=== PATIENT | female | born 2000 | race Caucasian/White ===

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

== ENCOUNTER 2021-02-16 18:46 | Emergency (ER) | payer OTHER ==
[2021-02-16] MEDS ORDERED: diphenhydrAMINE 50 MG/ML 1 ML VIAL IVP STA (20:03)
[2021-02-16] MEDS ORDERED: SODIUM CHLORIDE 0.9% 1,000 ML IV STA (20:03)
[2021-02-16] MEDS ORDERED: ONDANSETRON 4 MG/2 ML VIAL IVP STA (20:03)
[2021-02-16 20:29] LABS: Basophils % (A) 0 %; Eosinophils # (A) 0.2 k/uL (0-0.7); Eosinophils % (A) 1 %; HGB 15.5 gm/dL (11.4-16.0); Lymphocytes # (A) 0.9 k/uL (1.0-4.8); Lymphocytes % (A) 4 %; MCH 30.6 pg (25.0-35.0); MCHC 36.1 g/dL (31.0-37.0); MCV 84.7 fL (80.0-100.0); Mean Platelet Volume 8.1; Monocytes # (A) 0.8 k/uL (0-1.0); Monocytes % (A) 4 %; Neutrophils # (A) 19.9 k/uL (1.3-7.7); Neutrophils % (A) 91 %; Platelet Count 231 k/uL (150-450); RBC 5.07 m/uL (3.80-5.40); RDW 12.5 % (11.5-15.5); WBC 21.8 k/uL (4.0-11.0)
[2021-02-16 20:35] LABS: Appearance,Urine Cloudy (Clear); Bilirubin,Urine Negative (Negative); Blood,Urine Large (Negative); Color,Urine Yellow; Glucose,Urine (UA) Negative (Negative); Ketones,Urine Trace (Negative); Leukocyte Esterase,Urine Small (Negative); Mucus,Urine Many /hpf; Nitrite,Urine Negative (Negative); PH, Urine 5.5 (5.0-8.0); Protein,Urine 1+ (Negative); RBC,Urine 45 /hpf (0-5); Specific Gravity,Urine 1.027 (1.001-1.035); Squamous Epithelial Cell,Urine 7 /hpf (0-4); Urobilinogen,Urine <2.0 mg/dL (<2.0); WBC,Urine 3 /hpf (0-5)
[2021-02-16 20:39] LABS: ALT 14 U/L (4-34); AST 21 U/L (14-36); African American GFR (CKD) >90 (>60 ml/min/1.73 sqM); Albumin 5.2 g/dL (3.5-5.0); Alkaline Phosphatase 75 U/L (38-126); Amylase 101 U/L (30-110); Anion Gap 15 mmol/L; Blood Urea Nitrogen 15 mg/dL (7-17); Calcium 10.4 mg/dL (8.4-10.2); Carbon Dioxide 19 mmol/L (22-30); Chloride 108 mmol/L (98-107); Glucose 130 mg/dL (74-99); Lipase 159 U/L (23-300); Non-African American GFR(CKD) >90 (>60 ml/min/1.73 sqM); Potassium 3.7 mmol/L (3.5-5.1); Sodium 142 mmol/L (137-145); Total Bilirubin 0.8 mg/dL (0.2-1.3); Total Protein 8.1 g/dL (6.3-8.2)
[2021-02-16] MEDS: HYDROmorphone 1 MG/ML 1 ML SYRINGE IVP STA ×2 (20:41→20:47)
[2021-02-16 20:44] VITALS: RESP 16
[2021-02-16] MEDS ORDERED: KETOROLAC 15 MG/ML 1 ML VIAL IVP STA (20:47)
--- NOTE | 2021-02-16 21:14 | ED ---
Abdominal Pain HPI - General Chief Complaint: Abdominal Pain Stated Complaint: Abd pain/nausea Time Seen by Provider: 02/16/21 19:58 Source: patient, RN notes reviewed Mode of arrival: wheelchair Limitations: no limitations - History of Present Illness Initial Comments: 20-year-old female presented emergency, complaining of nausea vomiting diarrhea started approximately this morning. She notes that she has not been able to keep a whole lot of fluids down. She noted that she has generalized abdominal discomfort and pain. She'll the pain is approximately a 9.5 out of 10 is not aggravated by any movements or anything else. She denied any alleviating factors either. She also she can emergency room to get evaluated. She did appear to be in mild distress and moderate pain while sitting up in bed during exam and interview. She did state that there is a chance she might be but she was not sure. She denied any other complaints. She denied any chest pain shortness breath headache obstipation fever fatigue chills hematochezia melena hematemesis. - Related Data Home Medications Medication Instructions Recorded Confirmed Ibuprofen [Motrin Ib] 800 mg PO Q8H PRN 02/16/21 02/16/21 Allergies Allergy/AdvReac Type Severity Reaction Status Date / Time amoxicillin Allergy Rash/Hives Verified 02/16/21 22:04 morphine Allergy Rapid Verified 02/16/21 22:04 Heart Rate Penicillins Allergy Rash/Hives Verified 02/16/21 22:04 Review of Systems ROS Statement: Those systems with pertinent positive or pertinent negative responses have been documented in the HPI. ROS Other: All systems not noted in ROS Statement are negative. Past Medical History Additional Past Medical History / Comment(s): IBS, orthostatic hypertension, borderline diabetic. History of Any Multi-Drug Resistant Organisms: None Reported Past Surgical History: Adenoidectomy, Tonsillectomy Past Psychological History: PTSD Smoking Status: Vaper Past Alcohol Use History: None Reported Past Drug Use History: Marijuana General Exam Limitations: no limitations General appearance: alert, in no apparent distress Head exam: Present: atraumatic, normocephalic, normal inspection Eye exam: Present: normal appearance, PERRL, EOMI. Absent: scleral icterus, conjunctival injection, periorbital swelling Neck exam: Present: normal inspection Respiratory exam: Present: normal lung sounds bilaterally. Absent: respiratory distress, wheezes, rales, rhonchi, stridor Cardiovascular Exam: Present: regular rate, normal rhythm, normal heart sounds. Absent: systolic murmur, diastolic murmur, rubs, gallop, clicks GI/Abdominal exam: Present: soft, tenderness (In all quadrants), normal bowel sounds. Absent: distended, guarding, rebound, rigid, mass Extremities exam: Present: normal inspection, full ROM, normal capillary refill. Absent: tenderness, pedal edema, joint swelling, calf tenderness Neurological exam: Present: alert, oriented X3 Psychiatric exam: Present: normal affect, normal mood Skin exam: Present: warm, dry, intact, normal color. Absent: rash Course Vital Signs 02/16/21 02/16/21 19:02 20:41 Temperature 97.4 F L Pulse Rate 111 H 82 Respiratory 24 16 Rate Blood Pressure 111/54 98/55 O2 Sat by Pulse 99 99 Oximetry Medical Decision Making - Medical Decision Making 20-year-old female complaining of abdominal pain nausea vomiting and diarrhea times one. Labs, KUB, 50 mg of Benadryl, 15 mg Toradol, 4 mg of Zofran, 1 L normal saline ordered. Labs: White blood cells 21.8, glucose 1:30, calcium 10.4 urine negative for urinary tract infection. Patient appears to be dehydrated. Patient states that she feels much better upon reevaluation wants to go home. Case discussed with Dr. Woodruff, patient discharge home with repeat labs in a couple days. - Lab Data Result diagrams: 02/16/21 20:17 02/16/21 20:17 Lab Results 02/16/21 02/16/21 02/16/21 Range/Units 20:17 20:17 20:17 WBC 21.8 H (4.0-11.0) k/uL RBC 5.07 (3.80-5.40) m/uL Hgb 15.5 (11.4-16.0) gm/dL Hct 43.0 (34.0-46.0) % MCV 84.7 (80.0-100.0) fL MCH 30.6 (25.0-35.0) pg MCHC 36.1 (31.0-37.0) g/dL RDW 12.5 (11.5-15.5) % Plt Count 231 (150-450) k/uL MPV 8.1 Neutrophils % 91 % Lymphocytes % 4 % Monocytes % 4 % Eosinophils % 1 % Basophils % 0 % Neutrophils # 19.9 H (1.3-7.7) k/uL Lymphocytes # 0.9 L (1.0-4.8) k/uL Monocytes # 0.8 (0-1.0) k/uL Eosinophils # 0.2 (0-0.7) k/uL Basophils # 0.0 (0-0.2) k/uL Sodium (137-145) mmol/L Potassium (3.5-5.1) mmol/L Chloride (98-107) mmol/L Carbon Dioxide (22-30) mmol/L Anion Gap mmol/L BUN (7-17) mg/dL Creatinine (0.52-1.04) mg/dL Est GFR (CKD-EPI)AfAm (>60 ml/min/1.73 sqM) Est GFR (CKD-EPI)NonAf (>60 ml/min/1.73 sqM) Glucose (74-99) mg/dL Calcium (8.4-10.2) mg/dL Total Bilirubin (0.2-1.3) mg/dL AST (14-36) U/L ALT (4-34) U/L Alkaline Phosphatase (38-126) U/L Total Protein (6.3-8.2) g/dL Albumin (3.5-5.0) g/dL Amylase (30-110) U/L Lipase (23-300) U/L Urine Color Yellow Urine Appearance Cloudy H (Clear) Urine pH 5.5 (5.0-8.0) Ur Specific [place] 1.027 (1.001-1.035) Urine Protein 1+ H (Negative) Urine Glucose (UA) Negative (Negative) Urine Ketones Trace H (Negative) Urine Blood Large H (Negative) Urine Nitrite Negative (Negative) Urine Bilirubin Negative (Negative) Urine Urobilinogen <2.0 (<2.0) mg/dL Ur Leukocyte Esterase Small H (Negative) Urine RBC 45 H (0-5) /hpf Urine WBC 3 (0-5) /hpf Ur Squamous Epith Cells 7 H (0-4) /hpf Urine Mucus Many H (None) /hpf Urine HCG, Qual Not Detected (Not Detectd) 02/16/21 Range/Units 20:17 WBC (4.0-11.0) k/uL RBC (3.80-5.40) m/uL Hgb (11.4-16.0) gm/dL Hct (34.0-46.0) % MCV (80.0-100.0) fL MCH (25.0-35.0) pg MCHC (31.0-37.0) g/dL RDW (11.5-15.5) % Plt Count (150-450) k/uL MPV Neutrophils % % Lymphocytes % % Monocytes % % Eosinophils % % Basophils % % Neutrophils # (1.3-7.7) k/uL Lymphocytes # (1.0-4.8) k/uL Monocytes # (0-1.0) k/uL Eosinophils # (0-0.7) k/uL Basophils # (0-0.2) k/uL Sodium 142 (137-145) mmol/L Potassium 3.7 (3.5-5.1) mmol/L Chloride 108 H (98-107) mmol/L Carbon Dioxide 19 L (22-30) mmol/L Anion Gap 15 mmol/L BUN 15 (7-17) mg/dL Creatinine 0.62 (0.52-1.04) mg/dL Est GFR (CKD-EPI)AfAm >90 (>60 ml/min/1.73 sqM) Est GFR (CKD-EPI)NonAf >90 (>60 ml/min/1.73 sqM) Glucose 130 H (74-99) mg/dL Calcium 10.4 H (8.4-10.2) mg/dL Total Bilirubin 0.8 (0.2-1.3) mg/dL AST 21 (14-36) U/L ALT 14 (4-34) U/L Alkaline Phosphatase 75 (38-126) U/L Total Protein 8.1 (6.3-8.2) g/dL Albumin 5.2 H (3.5-5.0) g/dL Amylase 101 (30-110) U/L Lipase 159 (23-300) U/L Urine Color Urine Appearance (Clear) Urine pH (5.0-8.0) Ur Specific [place] (1.001-1.035) Urine Protein (Negative) Urine Glucose (UA) (Negative) Urine Ketones (Negative) Urine Blood (Negative) Urine Nitrite (Negative) Urine Bilirubin (Negative) Urine Urobilinogen (<2.0) mg/dL Ur Leukocyte Esterase (Negative) Urine RBC (0-5) /hpf Urine WBC (0-5) /hpf Ur Squamous Epith Cells (0-4) /hpf Urine Mucus (None) /hpf Urine HCG, Qual (Not Detectd) - Radiology Data Radiology results: report reviewed, image reviewed CT of the abdomen and pelvis: Tiny amount of low density free fluid in the pelvis could be physiological. Normal appendix. Otherwise negative exam. Disposition Clinical Impression: Abdominal pain, Nausea & vomiting, Diarrhea, Leukocytosis Disposition: HOME SELF-CARE Condition: Stable Instructions (If sedation given, give patient instructions): Abdominal Pain (ED) Additional Instructions: Please return to the Emergency Department if symptoms worsen or any other concerns. Follow-up with primary care in a couple days to recheck blood levels. Take Zofran as prescribed. Increase oral fluids. Is patient prescribed a controlled substance at d/c from ED?: No Referrals: Curt Monzon MD [Primary Care Provider] - 1-2 days Time of Disposition: 22:54
--- NOTE | 2021-02-16 21:52 | XR ---
EXAMINATION TYPE: XR KUB 2 views DATE OF EXAM: 02/16/2021 8:55 PM CLINICAL HISTORY: Pain TECHNIQUE: 2 upright views COMPARISON: None. FINDINGS: The visualized lung bases and pleural spaces are negative. No evidence of pneumoperitoneum or pneumatosis. Scattered gas is seen in non-distended small bowel lo ops. Gas and fecal material is seen in non-distended colon. There is no definite visceromegaly. No abnormal calcification. No acute skeletal findings. IMPRESSION: No acute radiographic process.
--- NOTE | 2021-02-16 22:38 | CT ---
EXAMINATION TYPE: CT abdomen pelvis w con DATE OF EXAM: 02/16/2021 COMPARISON: None HISTORY: vomiting and abd pain CT DLP: 720.9 mGycm Automated exposure control for dose reduction was used. CONTRAST: Performed with IV Contrast, patient injected with 100 mL of Isovue 300. Lung bases are clear. There is no pleural effusion. Heart size is normal. There is no pericardial eff usion. Liver spleen stomach pancreas gallbladder appear intact. Bile ducts are not dilated. There is no adrenal mass. Kidneys show satisfactory contrast opacification. There is no hydronephrosi s. The ureters are not dilated. There is no retroperitoneal adenopathy. Urinary bladder is almost emp ty. Uterus is anteverted. There is tiny amount of free fluid in the pelvis on the right side. There is no mesenteric edema. There is no ascites or free air. There is no bowel obstruction. Appendi x appears normal. The lumbar vertebra have normal alignment. Posterior elements are intact. There is no compression fra cture. Bony pelvis is intact. The hip joints are intact. There is no hip dysplasia. The delayed image s show normal renal excretion. IMPRESSION: Tiny amount of low-density free fluid in the pelvis could be physiologic. Normal appendix. Otherwise negative exam.
[2021-02-16] MEDS ORDERED: ONDANSETRON 4 MG ODT STARTER PACK 2 TAB BTL PO STA (22:53)
[2021-02-16 23:09] VITALS: BP 108/55; PULSE 85; TEMP 98
== END 2021-02-16 23:02 | disposition home or self-care (01) ==
LOC: EC 18:46
DX: R10.9 Unspecified abdominal pain (principal); R11.2 Nausea with vomiting, unspecified; R19.7 Diarrhea, unspecified; D72.829 Elevated white blood cell count, unspecified; F17.290 Nicotine dependence, other tobacco product, uncomplicated; I10 Essential (primary) hypertension; Z88.0 Allergy status to penicillin; Z88.5 Allergy status to narcotic agent
CPT/HCPCS: 36415; 80053; 82150; 83690; 85025; 81001; 81025; 74018; 74177; 99284; 96374; 96375; 96361; J1200; J2405; J1885; S0119; Q9967

== ENCOUNTER 2021-06-16 12:45 | Emergency (ER) | payer OTHER ==
[2021-06-16 12:59] VITALS: RESP 18; TEMP 98.5
[2021-06-16] MEDS ORDERED: HYDROmorphone 0.5 MG/0.5 ML SYRINGE IVP STA (13:57)
[2021-06-16] MEDS ORDERED: SODIUM CHLORIDE 0.9% 1,000 ML IV STA (13:57)
--- NOTE | 2021-06-16 14:17 | ED ---
General Adult HPI - General Chief complaint: Abdominal Pain Stated complaint: poss ovarian cyst Time Seen by Provider: 06/16/21 13:18 Source: patient, RN notes reviewed Mode of arrival: ambulatory - History of Present Illness Initial comments: 21-year-old female presents to the emergency room for a chief of right lower quadrant abdominal pain. Patient has had right lower quadrant abdominal pain for 3 months now. Patient states she was told she has an ovarian cyst. She states she hasn't seen her [facility] for this and has an upcoming appointment for an ultrasound. However the pain worsened last night and she called her [facility] who just recommended she come to the emergency room for evaluation. Denies fevers or chills. Denies nausea vomiting diarrhea.Patient has no other complaints at this time including shortness of breath, chest pain, nausea or vomiting, headache, or visual changes. - Related Data Home Medications Medication Instructions Recorded Confirmed No Known Home Medications 06/16/21 06/16/21 Allergies Allergy/AdvReac Type Severity Reaction Status Date / Time amoxicillin Allergy Rash/Hives Verified 06/16/21 13:52 morphine Allergy Rapid Verified 06/16/21 13:52 Heart Rate Penicillins Allergy Rash/Hives Verified 06/16/21 13:52 Review of Systems ROS Statement: Those systems with pertinent positive or pertinent negative responses have been documented in the HPI. ROS Other: All systems not noted in ROS Statement are negative. Past Medical History Additional Past Medical History / Comment(s): IBS, orthostatic hypertension, borderline diabetic. History of Any Multi-Drug Resistant Organisms: None Reported Past Surgical History: Adenoidectomy, Tonsillectomy Past Psychological History: PTSD Smoking Status: Vaper Past Alcohol Use History: None Reported Past Drug Use History: Marijuana General Exam General appearance: alert, in no apparent distress Head exam: Present: atraumatic Eye exam: Present: normal appearance, PERRL, EOMI. Absent: scleral icterus, conjunctival injection ENT exam: Present: normal exam, mucous membranes moist Neck exam: Present: normal inspection, full ROM. Absent: tenderness Respiratory exam: Present: normal lung sounds bilaterally. Absent: respiratory distress, wheezes Cardiovascular Exam: Present: regular rate, normal rhythm, normal heart sounds GI/Abdominal exam: Present: soft, tenderness (Mild right lower quadrant abdominal tenderness.), normal bowel sounds. Absent: distended Neurological exam: Present: alert Course Vital Signs 06/16/21 06/16/21 12:57 15:30 Temperature 98.5 F Pulse Rate 99 67 Respiratory 18 18 Rate Blood Pressure 99/60 111/50 O2 Sat by Pulse 97 99 Oximetry Medical Decision Making - Medical Decision Making Vitals are stable. CBC CMP unremarkable. Ultrasound shows no evidence of tor gemini. There is a probable 2.7 cm hemorrhagic cyst of the left ovary. Recommend ultrasound following up in 6-8 weeks. Patient states this pain is the same as several months ago when she had a CAT scan that was negative. Patient reevaluated, pain has improved significantly at this time. We will not CAT scan patient again as this is the same pain from previous CAT scan and patient's pain is resolved at this time. She will be discharged home to follow up with [facility]. She'll return here for any worsening symptoms. - Lab Data Result diagrams: 06/16/21 14:09 06/16/21 14:09 Lab Results 06/16/21 06/16/21 06/16/21 Range/Units 14:09 14:09 14:09 WBC 9.4 (3.8-10.6) k/uL RBC 4.79 (3.80-5.40) m/uL Hgb 14.5 (11.4-16.0) gm/dL Hct 42.9 (34.0-46.0) % MCV 89.6 (80.0-100.0) fL MCH 30.2 (25.0-35.0) pg MCHC 33.7 (31.0-37.0) g/dL RDW 12.3 (11.5-15.5) % Plt Count 215 (150-450) k/uL MPV 8.5 Neutrophils % 64 % Lymphocytes % 29 % Monocytes % 5 % Eosinophils % 1 % Basophils % 0 % Neutrophils # 6.0 (1.3-7.7) k/uL Lymphocytes # 2.7 (1.0-4.8) k/uL Monocytes # 0.4 (0-1.0) k/uL Eosinophils # 0.1 (0-0.7) k/uL Basophils # 0.0 (0-0.2) k/uL Sodium 141 (137-145) mmol/L Potassium 4.1 (3.5-5.1) mmol/L Chloride 103 (98-107) mmol/L Carbon Dioxide 29 (22-30) mmol/L Anion Gap 9 mmol/L BUN 10 (7-17) mg/dL Creatinine 0.62 (0.52-1.04) mg/dL Est GFR (CKD-EPI)AfAm >90 (>60 ml/min/1.73 sqM) Est GFR (CKD-EPI)NonAf >90 (>60 ml/min/1.73 sqM) Glucose 69 L (74-99) mg/dL Plasma Lactic Acid Jose A (0.7-2.0) mmol/L Calcium 10.1 (8.4-10.2) mg/dL Total Bilirubin 0.3 (0.2-1.3) mg/dL AST 19 (14-36) U/L ALT 10 (4-34) U/L Alkaline Phosphatase 56 (38-126) U/L Total Protein 7.6 (6.3-8.2) g/dL Albumin 4.5 (3.5-5.0) g/dL Amylase 66 (30-110) U/L Lipase 70 (23-300) U/L Urine Color Light Yellow Urine Appearance Cloudy H (Clear) Urine pH 7.5 (5.0-8.0) Ur Specific [place] 1.013 (1.001-1.035) Urine Protein Negative (Negative) Urine Glucose (UA) Negative (Negative) Urine Ketones Negative (Negative) Urine Blood Trace H (Negative) Urine Nitrite Negative (Negative) Urine Bilirubin Negative (Negative) Urine Urobilinogen <2.0 (<2.0) mg/dL Ur Leukocyte Esterase Negative (Negative) Urine RBC 17 H (0-5) /hpf Urine WBC 1 (0-5) /hpf Ur Squamous Epith Cells 4 (0-4) /hpf Urine Mucus Rare H (None) /hpf Urine Yeast (Budding) Few H (None) /hpf Urine HCG, Qual (Not Detectd) 06/16/21 06/16/21 Range/Units 14:09 14:09 WBC (3.8-10.6) k/uL RBC (3.80-5.40) m/uL Hgb (11.4-16.0) gm/dL Hct (34.0-46.0) % MCV (80.0-100.0) fL MCH (25.0-35.0) pg MCHC (31.0-37.0) g/dL RDW (11.5-15.5) % Plt Count (150-450) k/uL MPV Neutrophils % % Lymphocytes % % Monocytes % % Eosinophils % % Basophils % % Neutrophils # (1.3-7.7) k/uL Lymphocytes # (1.0-4.8) k/uL Monocytes # (0-1.0) k/uL Eosinophils # (0-0.7) k/uL Basophils # (0-0.2) k/uL Sodium (137-145) mmol/L Potassium (3.5-5.1) mmol/L Chloride (98-107) mmol/L Carbon Dioxide (22-30) mmol/L Anion Gap mmol/L BUN (7-17) mg/dL Creatinine (0.52-1.04) mg/dL Est GFR (CKD-EPI)AfAm (>60 ml/min/1.73 sqM) Est GFR (CKD-EPI)NonAf (>60 ml/min/1.73 sqM) Glucose (74-99) mg/dL Plasma Lactic Acid Jose A 1.0 (0.7-2.0) mmol/L Calcium (8.4-10.2) mg/dL Total Bilirubin (0.2-1.3) mg/dL AST (14-36) U/L ALT (4-34) U/L Alkaline Phosphatase (38-126) U/L Total Protein (6.3-8.2) g/dL Albumin (3.5-5.0) g/dL Amylase (30-110) U/L Lipase (23-300) U/L Urine Color Urine Appearance (Clear) Urine pH (5.0-8.0) Ur Specific [place] (1.001-1.035) Urine Protein (Negative) Urine Glucose (UA) (Negative) Urine Ketones (Negative) Urine Blood (Negative) Urine Nitrite (Negative) Urine Bilirubin (Negative) Urine Urobilinogen (<2.0) mg/dL Ur Leukocyte Esterase (Negative) Urine RBC (0-5) /hpf Urine WBC (0-5) /hpf Ur Squamous Epith Cells (0-4) /hpf Urine Mucus (None) /hpf Urine Yeast (Budding) (None) /hpf Urine HCG, Qual Not Detected (Not Detectd) Disposition Clinical Impression: Hemorrhagic ovarian cyst Disposition: HOME SELF-CARE Condition: Good Instructions (If sedation given, give patient instructions): Ruptured Ovarian Cyst (ED) Additional Instructions: Take Motrin and Tylenol for pain. Follow-up with your [facility]. Return for any worsening symptoms or for fevers. Is patient prescribed a controlled substance at d/c from ED?: No Referrals: Reyes Watson DO [Primary Care Provider] - 1-2 days Time of Disposition: 16:34
[2021-06-16 14:23] LABS: Basophils % (A) 0 %; Eosinophils # (A) 0.1 k/uL (0-0.7); Eosinophils % (A) 1 %; HCT 42.9 % (34.0-46.0); HGB 14.5 gm/dL (11.4-16.0); Lymphocytes # (A) 2.7 k/uL (1.0-4.8); Lymphocytes % (A) 29 %; MCH 30.2 pg (25.0-35.0); MCHC 33.7 g/dL (31.0-37.0); MCV 89.6 fL (80.0-100.0); Mean Platelet Volume 8.5; Monocytes # (A) 0.4 k/uL (0-1.0); Monocytes % (A) 5 %; Neutrophils % (A) 64 %; Platelet Count 215 k/uL (150-450); RBC 4.79 m/uL (3.80-5.40); RDW 12.3 % (11.5-15.5); WBC 9.4 k/uL (3.8-10.6)
[2021-06-16 14:32] LABS: Appearance,Urine Cloudy (Clear); Bilirubin,Urine Negative (Negative); Blood,Urine Trace (Negative); Budding Yeast,Urine Few /hpf; Color,Urine Light Yellow; Glucose,Urine (UA) Negative (Negative); Ketones,Urine Negative (Negative); Leukocyte Esterase,Urine Negative (Negative); Mucus,Urine Rare /hpf; Nitrite,Urine Negative (Negative); PH, Urine 7.5 (5.0-8.0); Protein,Urine Negative (Negative); RBC,Urine 17 /hpf (0-5); Specific Gravity,Urine 1.013 (1.001-1.035); Squamous Epithelial Cell,Urine 4 /hpf (0-4); Urobilinogen,Urine <2.0 mg/dL (<2.0); WBC,Urine 1 /hpf (0-5)
[2021-06-16 14:41] LABS: ALT 10 U/L (4-34); AST 19 U/L (14-36); African American GFR (CKD) >90 (>60 ml/min/1.73 sqM); Albumin 4.5 g/dL (3.5-5.0); Alkaline Phosphatase 56 U/L (38-126); Amylase 66 U/L (30-110); Anion Gap 9 mmol/L; Blood Urea Nitrogen 10 mg/dL (7-17); Calcium 10.1 mg/dL (8.4-10.2); Carbon Dioxide 29 mmol/L (22-30); Chloride 103 mmol/L (98-107); Glucose 69 mg/dL (74-99); Lipase 70 U/L (23-300); Non-African American GFR(CKD) >90 (>60 ml/min/1.73 sqM); Potassium 4.1 mmol/L (3.5-5.1); Sodium 141 mmol/L (137-145); Total Bilirubin 0.3 mg/dL (0.2-1.3); Total Protein 7.6 g/dL (6.3-8.2)
--- NOTE | 2021-06-16 15:45 | US ---
EXAMINATION TYPE: US transvaginal plus Dopplers DATE OF EXAM: 06/16/2021 COMPARISON: 02/16/2021 CT CLINICAL HISTORY: 21-year-old female RLQ pain. Pt states RLQ pain TECHNIQUE: Transvaginal (TV). Transvaginal sonographic images of the pelvis were acquired. Color D oppler and spectral waveform analysis of the ovarian arteries and veins. Date of LMP: 05/26/2021 FINDINGS: EXAM MEASUREMENTS: Uterus: 7.7 x 3.6 x 4.9 cm Endometrial Stripe: 0.9 cm Right Ovary: 3.2 x 1.7 x 3.0 cm Left Ovary: 3.8 x 2.8 x 3.9 cm 1. Uterus: Anteverted and otherwise wnl 2. Endometrium: wnl 3. Right Ovary: Follicular changes present. 4. Left Ovary: Probable hemorrhagic cyst= 2.7 x 2.0 x 2.2 cm. This is hypoechoic with internal retic ulations. Spectral, color and waveform doppler imaging shows good arterial and venous flow within the ovaries ; there is no evidence for ovarian torsion. 5. Bilateral Adnexa: wnl 6. Posterior cul-de-sac: wnl IMPRESSION: 1. No sonographic evidence for ovarian torsion. 2. Probable 2.7 cm hemorrhagic cyst of the left ovary. Recommend ultrasound follow-up in 6-8 weeks to ensure involution. 3. No pelvic free fluid.
[2021-06-16 15:59] VITALS: BP 111/50; PULSE 67
== END 2021-06-16 16:40 | disposition home or self-care (01) ==
LOC: EC 12:45
DX: N83.202 Unspecified ovarian cyst, left side (principal); I10 Essential (primary) hypertension; F17.290 Nicotine dependence, other tobacco product, uncomplicated; F12.90 Cannabis use, unspecified, uncomplicated; Z88.0 Allergy status to penicillin; Z88.5 Allergy status to narcotic agent; Z90.89 Acquired absence of other organs
CPT/HCPCS: 99284; 96374; 96361; 36415; 80053; 82150; 83605; 83690; 85025; 81001; 81025; 93975; 76830; J1170

== ENCOUNTER → 2021-07-18 | Outpatient (CLI) | payer OTHER ==
--- NOTE | 2021-07-18 14:37 | US ---
EXAMINATION TYPE: US pelvis complete transvag DATE OF EXAM: 07/18/2021 COMPARISON: 06/16/2021 CLINICAL HISTORY: R10.2 pelvis pain. Left ovarian cysts TECHNIQUE: Transvaginal (TV) and Transabdominal (TA) . Transabdominal sonographic images of the pel vis were acquired. Transvaginal sonographic images were medically necessary to better assess the fol lowing anatomy: Ovaries Date of LMP: ?? EXAM MEASUREMENTS: Uterus: 7.2x4.8x3.4 cm Endometrial Stripe: 1.1 cm Right Ovary: 3.5x2.7x2.7 cm Left Ovary: 2.8x2.5x2.4 cm 1. Uterus: Anteverted wnl 2. Endometrium: wnl 3. Right Ovary: 2.4x2.3x2.0 cm complex ? hemorraghic cyst 4. Left Ovary: paraovarian cyst 1.1x0.6x0.8cm small amount of fluid adjacent the ovary 5. Bilateral Adnexa: wnl 6. Posterior cul-de-sac: Fluid seen IMPRESSION: Ovarian cystic lesions may reflect hemorrhagic cyst. Consider follow-up study in 6 weeks for confirma tion.
== END | disposition home or self-care (01) ==
LOC: RADUSWWP 12:53
PROVIDERS: ATTEND Obstetrics & Gynecology
DX: N83.02 Follicular cyst of left ovary (principal)
CPT/HCPCS: 76830; 76856

== ENCOUNTER 2021-09-19 06:01 | Day surgery (SDC) | payer OTHER ==
[2021-09-13 10:36] VITALS: BMI 25.7
[~2021-09-19 06:01] MED LIST: DEXAMETHASONE SOD PHOSPHATE 4 MG/ML 1 ML VIAL IV ONE; LACTATED RINGERS 1,000 ML IV SCH; ONDANSETRON 4 MG/2 ML VIAL IVP ONE; Pre Op ABX Message 1 EACH MISC MISCELLANE ONE
[2021-09-19 06:27] VITALS: RESP 16
--- NOTE | 2021-09-19 07:11 | P.HPOB ---
History of Present Illness H&P Date: 09/19/21 Chief Complaint: Pelvic pain 21-year-old G0 presents for diagnostic laparoscopy, cauterization of endometriosis and aspiration of right ovarian cyst. Review of Systems All systems: negative Constitutional: Denies chills, Denies fever Eyes: denies blurred vision, denies pain Ears, nose, mouth and throat: Denies headache, Denies sore throat Cardiovascular: Denies chest pain, Denies shortness of breath Respiratory: Denies cough Gastrointestinal: Denies abdominal pain, Denies diarrhea, Denies nausea, Denies vomiting Genitourinary: Denies dysuria, Denies hematuria Musculoskeletal: Denies myalgias Integumentary: Denies pruritus, Denies rash Neurological: Denies numbness, Denies weakness Psychiatric: Denies anxiety, Denies depression Endocrine: Denies fatigue, Denies weight change Past Medical History Additional Past Medical History / Comment(s): IBS, orthostatic hypotension, hx borderline diabetic, resolved since weight loss. History of Any Multi-Drug Resistant Organisms: None Reported Past Surgical History: Adenoidectomy, Tonsillectomy Past Anesthesia/Blood Transfusion Reactions: No Reported Reaction Past Psychological History: Anxiety, Depression, PTSD Smoking Status: Current every day smoker Past Alcohol Use History: Occasional Additional Past Alcohol Use History / Comment(s): Has been smoking since 18 yrs old, 1/2 ppd. Past Drug Use History: Marijuana Additional Drug Use History / Comment(s): Marijuana use daily. Aware no use 24 hrs prior to procedure. - Past Family History Father Family Medical History: Deep Vein Thrombosis (DVT) Medications and Allergies Home Medications Medication Instructions Recorded Confirmed Type No Known Home Medications 06/16/21 09/19/21 History Allergies Allergy/AdvReac Type Severity Reaction Status Date / Time amoxicillin Allergy Rash/Hives Verified 09/19/21 06:34 morphine Allergy Rapid Verified 09/19/21 06:34 Heart Rate Penicillins Allergy Rash/Hives Verified 09/19/21 06:34 Exam Osteopathic Statement: *. No significant issues noted on an osteopathic structural exam other than those noted in the History and Physical/Consult. Vital Signs Temp Pulse Resp BP Pulse Ox 09/19/21 06:26 98.5 F 95 16 112/67 98 Intake and Output 09/18/21 09/19/21 09/19/21 22:59 06:59 14:59 Other: Weight 67.5 kg Heart: Regular rate and rhythm Lungs: Clear to auscultation bilaterally Abdomen: Soft, nontender Extremities: Negative Homans sign Assessment and Plan (1) Pelvic pain Current Visit: Yes Status: Acute Code(s): R10.2 - PELVIC AND PERINEAL PAIN SNOMED Code(s): 67312719 (2) Right ovarian cyst Current Visit: Yes Status: Acute Code(s): N83.201 - UNSPECIFIED OVARIAN CYST, RIGHT SIDE SNOMED Code(s): 19016902 Plan: 1. Diagnostic laparoscopy with cauterization of endometriosis and aspiration of ovarian cyst
[2021-09-19] MEDS ORDERED: PROPOFOL 10 MG/ML 20 ML VIAL IV ONE (07:22)
[2021-09-19] MEDS ORDERED: ROCURONIUM 10 MG/ML (5 ML VIAL) IV ONE (07:22)
[2021-09-19] MEDS ORDERED: LIDOCAINE 1% INJ 10MG/ML (20 ML MDV) ONE (07:22)
[2021-09-19] MEDS ORDERED: MIDAZOLAM 2 MG/2 ML VIAL ONE (07:22)
[2021-09-19] MEDS ORDERED: GLYCOPYRROLATE 0.2 MG/ML 2 ML VIAL ONE (07:22)
[2021-09-19] MEDS ORDERED: fentaNYL (PF) 50 MCG/ML 2 ML AMP ONE (07:22)
[2021-09-19] MEDS ORDERED: HYDROmorphone (PF) 1 MG/ML ONE (07:22)
[2021-09-19] MEDS ORDERED: NEOSTIGMINE 1 MG/ML 10 ML VIAL ONE (07:22)
[2021-09-19] MEDS ORDERED: SUCCINYLCHOLINE CHLORIDE 100 MG/5 ML SYR IV ONE (07:22)
[2021-09-19] MEDS ORDERED: KETOROLAC 15 MG/ML 1 ML VIAL ONE (07:22)
[2021-09-19] MEDS ORDERED: BUPIVACAINE (PF) 0.25% 30 ML VIAL SQ ONE (08:03)
--- NOTE | 2021-09-19 08:20 | P.OP ---
Date of Procedure: 09/19/21 Preoperative Diagnosis: 1. pelvic pain 2. ovarian cyst Postoperative Diagnosis: 1. pelvic pain 2. ovarian cyst Procedure(s) Performed: diagnostic laparoscopy, aspiration of left ovarian cyst and cauterization of endometriosis. Anesthesia: MATTHEWA Surgeon: Rose Marie Moore Estimated Blood Loss (ml): 3 IV fluids (ml): 200 Urine output (ml): 15 Pathology: none sent Condition: stable Disposition: floor Operative Findings: left hemorrhagic cyst(possible corpus luteum), endomtriosis on the left ovarian fossa, adhesions of the left sigmoid colon to the left pelvic sidewall Description of Procedure: Patient was taken to the operating room where general anesthesia was obtained without difficulty. She was prepped and draped in normal sterile fashion in the dorsal lithotomy position, legs placed in the Alhaji stirrups. Bladder drained of all urine. Warner speculum placed in the vagina and the anterior lip the cervix was grasped with single-tooth tenaculum. The uterus is sounded to 8 cm and the kroner manipulator was placed. Attention was then turned to the abdomen and gloves were changed. A 10 mm infraumbilical incision was made the scalpel and 10 mm optical trocar was placed under direct visualization. A 5 mm suprapubic Incision was made and a 5 mm optical trocar was placed under direct visualization. Survey of the pelvis revealed normal uterus tubes and right ovary, small hemorrhagic cyst on the left ovary possible corpus luteum. I checked above the bladder behind the uterus and both ovarian fossa for endometriosis. I did see endometriosis in the left ovarian fossa and I burned this area with cautery set to 25. I did aspirate the left ovarian cyst as well, minimal blood came out. Suction industrial sales manager was used to evacuate fluid collection in the posterior cul-de-sac. Of note there is some adhesions of the left sigmoid colon to the left pelvic sidewall. All instruments were then removed from the abdomen and pelvis. The 10 mm infraumbilical incision was closed with 0 Vicryl and the fascial layer and then 4-0 Vicryl in a subcuticular fashion. The 5 mm incision was closed with 4-0 Vicryl in a subcuticular fashion. Patient tolerated procedure well, sponge and instrument counts correct 2 and she was taken to recovery room in stable condition.
[2021-09-19 08:22] VITALS: TEMP 97.5
[2021-09-19] MEDS: HYDROmorphone 0.5 MG/0.5 ML SYRINGE IVP PRN ×2 (08:25→08:33)
[2021-09-19 09:38] VITALS: BP 106/66; PULSE 63
== END 2021-09-19 10:44 | disposition home or self-care (01) ==
LOC: OR 06:01
PROVIDERS: ATTEND Obstetrics & Gynecology
DX: R10.2 Pelvic and perineal pain (principal); N83.202 Unspecified ovarian cyst, left side
CPT/HCPCS: 49322; 81025; J2250; J1100; J2710; J2405; J2001; J3010; J1170 ×2; J1885; J0330; J2704; J1790

== ENCOUNTER 2021-09-22 17:47 | Inpatient (IN) | payer OTHER ==
[2021-09-22] MEDS ORDERED: HYDROmorphone 0.5 MG/0.5 ML SYRINGE IVP STA ×2 (18:12→19:09)
[2021-09-22] MEDS ORDERED: SODIUM CHLORIDE 0.9% 500 ML 500 ML IV STA ×2 (18:12→19:26)
[2021-09-22] MEDS ORDERED: ONDANSETRON 4 MG/2 ML VIAL IVP STA (18:12)
--- NOTE | 2021-09-22 18:21 | ED ---
Abdominal Pain HPI <Maycol Villela - Last Filed: 09/22/21 23:14> - General Source: patient, EMS Mode of arrival: EMS Limitations: no limitations <Vilma Uriarte - Last Filed: 09/23/21 18:28> - General Chief Complaint: Abdominal Pain Stated Complaint: post op complications Time Seen by Provider: 09/22/21 17:59 - History of Present Illness Initial Comments: This 21-year-old female presents to the emergency department with abdominal pain and constipation. Patient states she had electroscopic surgery for her endometriosis on [id number]. She states 3 days leading up to her surgery she did not have a bowel movement, and states she still has not had a bowel movement. Patient states she has been taking stool softeners at home which have not been working. Patient states she does have a history of constipation. Patient states her abdominal pain hasn't presents since her surgery, however to day around 3 PM it got severe so she decided to come to the emergency room. She states since this abdominal pain got severe, she describes as colicky in nature and states it comes and goes, however, it is always there and painful just indifferent severities. Patient states she is nauseous and has experience a couple episodes of vomiting. Patient denies any chest pain, shortness of breath, headache, dizziness, changes in urine, dizziness, fever, hemoptysis, diarrhea. (Vilma Uriarte) - Related Data Previous Rx's Medication Instructions Recorded Acetaminophen-Codeine 300-30mg 1 - 2 tab PO Q6H PRN #20 tablet 09/19/21 [Tylenol #3] Ibuprofen [Motrin] 600 mg PO Q6HR PRN #30 tab 09/19/21 Allergies Allergy/AdvReac Type Severity Reaction Status Date / Time amoxicillin Allergy Rash/Hives Verified 09/22/21 18:39 morphine Allergy Rapid Verified 09/22/21 18:39 Heart Rate Penicillins Allergy Rash/Hives Verified 09/22/21 18:39 Review of Systems ROS Other: All systems not noted in ROS Statement are negative. <Maycol Villela - Last Filed: 09/22/21 23:14> ROS Other: All systems not noted in ROS Statement are negative. <Vilma Uriarte - Last Filed: 09/23/21 18:28> ROS Statement: Those systems with pertinent positive or pertinent negative responses have been documented in the HPI. Past Medical History Additional Past Medical History / Comment(s): IBS, orthostatic hypertension, borderline diabetic. History of Any Multi-Drug Resistant Organisms: None Reported Past Surgical History: Adenoidectomy, Tonsillectomy Additional Past Surgical History / Comment(s): Endometriosis laproscopic surgery on 09/19/21. Past Psychological History: Anxiety, PTSD Smoking Status: Current every day smoker, Vaper Past Alcohol Use History: None Reported, Occasional Past Drug Use History: Marijuana <Vilma Uriarte - Last Filed: 09/23/21 18:28> General Exam Limitations: no limitations General appearance: alert, in no apparent distress Head exam: Present: atraumatic, normocephalic Eye exam: Present: EOMI ENT exam: Present: mucous membranes moist Neck exam: Present: full ROM. Absent: normal inspection Respiratory exam: Present: normal lung sounds bilaterally. Absent: respiratory distress, wheezes, rales, rhonchi, stridor Cardiovascular Exam: Present: regular rate, normal rhythm, normal heart sounds. Absent: systolic murmur, diastolic murmur, rubs, gallop, clicks GI/Abdominal exam: Present: soft, tenderness (Tender to light palpation in all 4 quadrants. Patient has tapered overw her 2 incisions where her laparoscopic procedure was done. No erythema or warmth surrounding that area.), normal bowel sounds. Absent: distended, guarding, rebound, rigid Extremities exam: Present: normal inspection, full ROM Back exam: Absent: full ROM, tenderness, CVA tenderness (R), CVA tenderness (L) Neurological exam: Present: alert, oriented X3, CN II-XII intact Psychiatric exam: Present: normal affect, normal mood Skin exam: Present: warm, dry, intact, normal color. Absent: rash <iVlma Uriarte - Last Filed: 09/23/21 18:28> Course <Maycol Villela - Last Filed: 09/22/21 23:14> Vital Signs 09/22/21 09/22/21 09/22/21 17:51 19:20 19:54 Temperature 98.4 F Pulse Rate 84 72 70 Respiratory 22 18 18 Rate Blood Pressure 135/78 116/74 121/69 O2 Sat by Pulse 99 98 97 Oximetry 09/22/21 21:48 Temperature Pulse Rate 79 Respiratory 18 Rate Blood Pressure 121/70 O2 Sat by Pulse 100 Oximetry - Reevaluation(s) Reevaluation #1: 09/22/212029 I have been contacted by the radiologist regarding abnormal CT finding and concern for ischemic bowel. I did immediately evaluate the patient who had continued pain as well as abdominal tenderness. Hemodynamics were stable. White count revealed elevated white blood cell count at 16, normal hemoglobin, normal lactic acid (Maycol Villela) Reevaluation #2: 09/22/212034 the [employer] covering for Dr. Moore, Dr. Pearson has been paged as well as general surgery. I discussed the abnormal findings initially with Dr. Pearson so that she was aware of the patient's condition. (Maycol Villela) Reevaluation #3: 09/22/212046 General surgery was currently in the operating room with a different patient. I contacted the backup surgeon Dr. Richardson who did indicate that the operating room capacity was 1 patient and that there was not a second team available for the treatment of this patient. (Maycol Villela) Reevaluation #4: 09/22/212102 I discussed case with the covering surgeon Dr. Mcduffie who did recommend evaluation by general surgery, I did also question the use of heparin which was recommended however this was later discontinued due to plans for the operating room (Maycol Villela) Reevaluation #5: 09/22/212055 I was able to discuss case with Dr. Hyde while he was in the operating room with a different patient. He recommended transfer to higher level of care and the need for possible further vascular intervention. At this time [facility] Tru[facility] have been contacted regarding transfer who declined. I discussed case with [facility] transfer line at 2122 who declined transfer secondary to the delay in availability of operating room's. General surgeon from [facility] was able to discuss the case with Dr. Hyde at that time. (Maycol Villela) Medical Decision Making - Lab Data Result diagrams: 09/22/21 18:27 09/22/21 18:27 <Maycol Villela - Last Filed: 09/22/21 23:14> - Lab Data Result diagrams: 09/23/21 03:33 09/22/21 18:27 <Vilma Uriarte - Last Filed: 09/23/21 18:28> - Medical Decision Making 21-year-old female presenting with abdominal pain. Pain acutely worsened proximally 3 PM. Patient received initial workup including laboratory testing and lactic acid which was normal. She had no elevated white blood cell count. CT with contrast was ordered which showed concern for ischemic bowel with dilated bowel loops and the possibility of vascular occlusion. I discussed case with multiple general surgeon's, vascular surgery, [facility] and ultimately the plan of care for this patient was for exploratory laparotomy at this institution with Dr. Hyde. (Maycol Villela) This 21-year-old female presents emergency department with abdominal pain worsening over the last couple of hours. CT abdomen and pelvis with contrast imp ression: Suspected long segment of small bowel ileum ischemia/infarct secondary to mesenteric vascular occlusion of the artery and possibly vein as described above. X-ray KUB impression: Nonspecific bowel gas pattern without radiographic evidence for acute process. Labs reveal WBC 16.0, coagulation unremarkable, urine unremarkable, urine hCG not detected. The bowel gas pattern is nonspecific without dilated loops of small bowel or large bowel. Fecal material and gas demonstrated throughout the colon and rectum. Patient was given Dilaudid which helps minimally for a short period of time. Case discussed with my attending, took over the patient and was in contact with our gen eral surgeon, . (Vilma Uriarte) - Lab Data Lab Results 09/22/21 09/22/21 09/22/21 Range/Units 18:27 18:27 18:27 WBC 16.0 H (3.8-10.6) k/uL RBC 4.40 (3.80-5.40) m/uL Hgb 13.5 (11.4-16.0) gm/dL Hct 39.3 (34.0-46.0) % MCV 89.4 (80.0-100.0) fL MCH 30.7 (25.0-35.0) pg MCHC 34.3 (31.0-37.0) g/dL RDW 12.1 (11.5-15.5) % Plt Count 193 (150-450) k/uL MPV 8.5 Neutrophils % 82 % Lymphocytes % 13 % Monocytes % 4 % Eosinophils % 0 % Basophils % 0 % Neutrophils # 13.1 H (1.3-7.7) k/uL Lymphocytes # 2.1 (1.0-4.8) k/uL Monocytes # 0.6 (0-1.0) k/uL Eosinophils # 0.1 (0-0.7) k/uL Basophils # 0.0 (0-0.2) k/uL PT (9.0-12.0) sec INR (<1.2) APTT (22.0-30.0) sec Sodium 138 (137-145) mmol/L Potassium 3.6 (3.5-5.1) mmol/L Chloride 107 (98-107) mmol/L Carbon Dioxide 22 (22-30) mmol/L Anion Gap 9 mmol/L BUN 9 (7-17) mg/dL Creatinine 0.63 (0.52-1.04) mg/dL Est GFR (CKD-EPI)AfAm >90 (>60 ml/min/1.73 sqM) Est GFR (CKD-EPI)NonAf >90 (>60 ml/min/1.73 sqM) Glucose 106 H (74-99) mg/dL Plasma Lactic Acid Jose A (0.7-2.0) mmol/L Calcium 9.1 (8.4-10.2) mg/dL Total Bilirubin 0.4 (0.2-1.3) mg/dL AST 16 (14-36) U/L ALT 10 (4-34) U/L Alkaline Phosphatase 61 (38-126) U/L Total Protein 6.9 (6.3-8.2) g/dL Albumin 4.0 (3.5-5.0) g/dL Amylase 66 (30-110) U/L Lipase 95 (23-300) U/L Urine Color Light Yellow Urine Appearance Clear (Clear) Urine pH 6.5 (5.0-8.0) Ur Specific [place] 1.008 (1.001-1.035) Urine Protein Negative (Negative) Urine Glucose (UA) Negative (Negative) Urine Ketones Negative (Negative) Urine Blood Large H (Negative) Urine Nitrite Negative (Negative) Urine Bilirubin Negative (Negative) Urine Urobilinogen <2.0 (<2.0) mg/dL Ur Leukocyte Esterase Negative (Negative) Urine RBC 8 H (0-5) /hpf Urine WBC 1 (0-5) /hpf Ur Squamous Epith Cells 5 H (0-4) /hpf Urine Mucus Rare H (None) /hpf Urine HCG, Qual (Not Detectd) 09/22/21 09/22/21 09/22/21 Range/Units 18:27 18:27 18:27 WBC (3.8-10.6) k/uL RBC (3.80-5.40) m/uL Hgb (11.4-16.0) gm/dL Hct (34.0-46.0) % MCV (80.0-100.0) fL MCH (25.0-35.0) pg MCHC (31.0-37.0) g/dL RDW (11.5-15.5) % Plt Count (150-450) k/uL MPV Neutrophils % % Lymphocytes % % Monocytes % % Eosinophils % % Basophils % % Neutrophils # (1.3-7.7) k/uL Lymphocytes # (1.0-4.8) k/uL Monocytes # (0-1.0) k/uL Eosinophils # (0-0.7) k/uL Basophils # (0-0.2) k/uL PT 10.3 (9.0-12.0) sec INR 0.9 (<1.2) APTT 22.9 (22.0-30.0) sec Sodium (137-145) mmol/L Potassium (3.5-5.1) mmol/L Chloride (98-107) mmol/L Carbon Dioxide (22-30) mmol/L Anion Gap mmol/L BUN (7-17) mg/dL Creatinine (0.52-1.04) mg/dL Est GFR (CKD-EPI)AfAm (>60 ml/min/1.73 sqM) Est GFR (CKD-EPI)NonAf (>60 ml/min/1.73 sqM) Glucose (74-99) mg/dL Plasma Lactic Acid Jose A 1.4 (0.7-2.0) mmol/L Calcium (8.4-10.2) mg/dL Total Bilirubin (0.2-1.3) mg/dL AST (14-36) U/L ALT (4-34) U/L Alkaline Phosphatase (38-126) U/L Total Protein (6.3-8.2) g/dL Albumin (3.5-5.0) g/dL Amylase (30-110) U/L Lipase (23-300) U/L Urine Color Urine Appearance (Clear) Urine pH (5.0-8.0) Ur Specific [place] (1.001-1.035) Urine Protein (Negative) Urine Glucose (UA) (Negative) Urine Ketones (Negative) Urine Blood (Negative) Urine Nitrite (Negative) Urine Bilirubin (Negative) Urine Urobilinogen (<2.0) mg/dL Ur Leukocyte Esterase (Negative) Urine RBC (0-5) /hpf Urine WBC (0-5) /hpf Ur Squamous Epith Cells (0-4) /hpf Urine Mucus (None) /hpf Urine HCG, Qual Not Detected (Not Detectd) Critical Care Time Critical Care Time: Yes Total Critical Care Time: 35 <Maycol Villela - Last Filed: 09/22/21 23:14> Disposition Is patient prescribed a controlled substance at d/c from ED?: No Decision to Admit Reason: Admit from EC <Maycol Villela - Last Filed: 09/22/21 23:14> <Vilma Uriarte - Last Filed: 09/23/21 18:28> Clinical Impression: Acute abdomen, Ischemic bowel disease Disposition: ADMITTED IP TO THIS HOSP Condition: Serious
[2021-09-22 18:35] LABS: Basophils % (A) 0 %; Eosinophils # (A) 0.1 k/uL (0-0.7); Eosinophils % (A) 0 %; HCT 39.3 % (34.0-46.0); HGB 13.5 gm/dL (11.4-16.0); Lymphocytes # (A) 2.1 k/uL (1.0-4.8); Lymphocytes % (A) 13 %; MCH 30.7 pg (25.0-35.0); MCHC 34.3 g/dL (31.0-37.0); MCV 89.4 fL (80.0-100.0); Mean Platelet Volume 8.5; Monocytes # (A) 0.6 k/uL (0-1.0); Monocytes % (A) 4 %; Neutrophils # (A) 13.1 k/uL (1.3-7.7); Neutrophils % (A) 82 %; Platelet Count 193 k/uL (150-450); RDW 12.1 % (11.5-15.5)
[2021-09-22 18:45] LABS: ALT 10 U/L (4-34); AST 16 U/L (14-36); African American GFR (CKD) >90 (>60 ml/min/1.73 sqM); Alkaline Phosphatase 61 U/L (38-126); Amylase 66 U/L (30-110); Anion Gap 9 mmol/L; Blood Urea Nitrogen 9 mg/dL (7-17); Calcium 9.1 mg/dL (8.4-10.2); Carbon Dioxide 22 mmol/L (22-30); Chloride 107 mmol/L (98-107); Glucose 106 mg/dL (74-99); INR 0.9 (<1.2); Non-African American GFR(CKD) >90 (>60 ml/min/1.73 sqM); Partial Thromboplastin Time 22.9 sec (22.0-30.0); Potassium 3.6 mmol/L (3.5-5.1); Prothrombin Time 10.3 sec (9.0-12.0); Sodium 138 mmol/L (137-145); Total Bilirubin 0.4 mg/dL (0.2-1.3); Total Protein 6.9 g/dL (6.3-8.2)
[2021-09-22 19:02] LABS: Lipase 95 U/L (23-300)
--- NOTE | 2021-09-22 19:11 | XR ---
EXAMINATION TYPE: XR KUB DATE OF EXAM: 09/22/2021 6:35 PM INDICATION: Patient age:Female; 21 years old; Reason for study: abdominal pain;. COMPARISON: 02/16/2021 TECHNIQUE: One radiographic view of the abdomen was obtained. FINDINGS: The bowel gas pattern is nonspecific without dilated loops of small or large bowel. There i s no evidence for organomegaly or pneumoperitoneum. The osseous structures are intact. No abnormal calcifications are present. Fecal material and gas are demonstrated throughout the colon and rectum. IMPRESSION: Nonspecific bowel gas pattern without radiographic evidence for acute process.
[2021-09-22 19:34] LABS: Appearance,Urine Clear (Clear); Bilirubin,Urine Negative (Negative); Blood,Urine Large (Negative); Color,Urine Light Yellow; Glucose,Urine (UA) Negative (Negative); Ketones,Urine Negative (Negative); Leukocyte Esterase,Urine Negative (Negative); Mucus,Urine Rare /hpf; Nitrite,Urine Negative (Negative); PH, Urine 6.5 (5.0-8.0); Protein,Urine Negative (Negative); RBC,Urine 8 /hpf (0-5); Specific Gravity,Urine 1.008 (1.001-1.035); Squamous Epithelial Cell,Urine 5 /hpf (0-4); Urobilinogen,Urine <2.0 mg/dL (<2.0); WBC,Urine 1 /hpf (0-5)
[2021-09-22] MEDS ORDERED: HYDROmorphone 1 MG/ML 1 ML SYRINGE IVP STA ×2 (20:29→21:14)
[2021-09-22] MEDS ORDERED: LEVOFLOXACIN 750MG-D5W PMX 750 MG in DEXTROSE/WATER 1 150ML.BAG IVPB STA (20:41)
[2021-09-22] MEDS ORDERED: metroNIDAZOLE-NS PMX 500 MG in SALINE 1 100ML.BAG IVPB STA (20:41)
[2021-09-22] MEDS ORDERED: cefTRIAXone IN SWFI 1,000 MG/10 ML SYRINGE IVP STA (20:42)
--- NOTE | 2021-09-22 20:49 | CT ---
EXAMINATION TYPE: CT abdomen pelvis w con CT DLP: 728.5 mGycm, Automated exposure control for dose reduction was used. DATE OF EXAM: 09/22/2021 7:47 PM COMPARISON: CT abdomen pelvis most recent from 02/16/2021. CLINICAL INDICATION:Female, 21 years old with history of abd pain; Abdominal pain post surgery for en dometrioses. TECHNIQUE: Standard CT of the abdomen and pelvis following the administration of 100 cc of Isovue 3 00 IV contrast material. Coronal and sagittal reformats were performed. FINDINGS: LOWER CHEST: Unremarkable ABDOMEN LIVER: Unremarkable GALLBLADDER AND BILE DUCTS: Unremarkable. PANCREAS: Unremarkable. SPLEEN: Unremarkable. ADRENAL GLANDS: Unremarkable. KIDNEYS AND URETERS: No evidence of hydronephrosis or renal calculus. The ureters are unremarkable. PELVIS BLADDER: Unremarkable REPRODUCTIVE: Unremarkable. ABDOMEN & PELVIS STOMACH AND BOWEL: There is a long segment of small bowel ileum layering within the pelvis which enha nces less than the rest of the small bowel. The bowel tony within this region are edematous and thic kened measuring up to millimeters in thickness. Delayed imaging also partially visualized this area a nd bowel demonstrates decreased enhancement. Evaluation of the vein extending away from this region d emonstrates short segment of which is nonopacified vein, this is appreciated on series 201 image 52 a nd an artery extending to this region which becomes unopacified series 201 image 49. No evidence of bowel obstruction. The appendix is visualized and normal. PERITONEUM: Free air is seen throughout the abdomen predominantly the upper abdomen. A small Amount o f fluid is seen within the pelvis. VASCULATURE: No evidence of aortic aneurysm. A forementioned nonopacification of artery extending to this loop of bowel. MUSCULOSKELETAL: No acute osseous abnormalities LYMPH NODES: No gross evidence for lymphadenopathy. SOFT TISSUE/ABDOMINAL WALL: Unremarkable Findings communicated to Dr. Vilma Uriarte, EMILE on 09/22/2021 8:[address] Maycol Wagner. IMPRESSION: 1. Suspected long segment of small bowel ileum ischemia/infarct secondary to mesenteric vascular occl usion of the artery and possibly the vein as described above. 2. Pneumoperitoneum which can be seen after surgery up to 7-12 days.
[2021-09-22] MEDS: SODIUM CHLORIDE 0.9% 1,000 ML IV SCH (20:56)
[2021-09-22] MEDS ORDERED: HEPARIN SODIUM 1,000 UN/ML (10ML VL) IV ONE (21:10)
[2021-09-22] MEDS ORDERED: HEPARIN SODIUM 1,000 UN/ML (10ML VL) IV PRN (21:10)
[2021-09-22] MEDS ORDERED: HEPARIN SOD,PORK IN 0.45% NACL 25,000 UNIT in 0.45% NACL 1 250ML.BAG IV SCH (21:15)
[2021-09-22] MEDS ORDERED: NALOXONE 0.4 MG/ML 1 ML VIAL IV PRN (21:59)
--- NOTE | 2021-09-22 22:36 | P.GSHP ---
History of Present Illness H&P Date: 09/22/21 Chief Complaint: Acute abdominal pain, abnormal computed tomography scan abdomen and pelvis Patient is a 21-year-old young lady who presents to the [facility] emergency department the evening of 09/22/2021 with chief complaint of acute onset of diffuse, severe abdominal pains at around 3:00 this afternoon. Pain is grown progressively worse up until presentation. She admits to associated nausea and multiple bouts of nonbloody emesis. She admits to flatus this m orning, it's been at least a day since her last bowel movement. She hasn't had similar episodes of pain in the past. She underwent a laparoscopic procedure for endometriosis just this past September 19. She had been doing well until this afternoon. No known personal history of inflammatory bowel disease but the patient does admit to an empiric diagnosis of irritable bowel syndrome. The pain is excruciating at rest and exacerbated with any movement. She is more comfortable in the semi-upright seated position. Laboratory studies showed leukocytosis, venous lactate was within normal limits. INR normal range. Amylase, lipase, liver function studies were within normal limits. Computed kaiden ography scan of the abdomen and pelvis shows a long segment of ileum with impaired or absent perfusion and a marketed bowel wall thickening. There is mention in the report of the absence of blood flow to it sounds like the secondary or tertiary vessels but no proximal occlusion at the origin of the mesenteric vasculature. - Review of Systems All systems: negative - Constitutional Constitutional: Reports as per HPI - EENT Ears, nose, mouth and throat: Reports as per HPI - Cardiovascular Cardiovascular: Reports as per HPI - Respiratory Respiratory: Reports as per HPI - Gastrointestinal Gastrointestinal: Reports as per HPI - Genitourinary (Female) Genitourinary: Reports as per HPI - Musculoskeletal Musculoskeletal: Reports as per HPI Past Medical History Additional Past Medical History / Comment(s): IBS, orthostatic hypertension, borderline diabetic. History of Any Multi-Drug Resistant Organisms: None Reported Past Surgical History: Adenoidectomy, Tonsillectomy Additional Past Surgical History / Comment(s): Endometriosis laproscopic surgery on 09/19/21. Past Psychological History: Anxiety, PTSD Smoking Status: Current every day smoker, Vaper Past Alcohol Use History: None Reported, Occasional Past Drug Use History: Marijuana Additional History: Patient's mother's , requires an park services specialist. Medications and Allergies Home Medications Medication Instructions Recorded Confirmed Type Acetaminophen-Codeine 300-30mg 1 - 2 tab PO Q6H PRN #20 tablet 09/19/21 09/22/21 Rx [Tylenol #3] Ibuprofen [Motrin] 600 mg PO Q6HR PRN #30 tab 09/19/21 09/22/21 Rx Allergies Allergy/AdvReac Type Severity Reaction Status Date / Time amoxicillin Allergy Rash/Hives Verified 09/22/21 18:39 morphine Allergy Rapid Verified 09/22/21 18:39 Heart Rate Penicillins Allergy Rash/Hives Verified 09/22/21 18:39 Surgical - Exam Osteopathic Statement: *. No significant issues noted on an osteopathic structural exam other than those noted in the History and Physical/Consult. Vital Signs Temp Pulse Resp BP Pulse Ox 98.4 F 84 22 135/78 99 09/22/21 17:51 09/22/21 17:51 09/22/21 17:51 09/22/21 17:51 09/22/21 17:51 - General well developed, well nourished, severe distress, severe pain - Eyes PERRL - Respiratory normal expansion, normal respiratory effort, clear to auscultation - Cardiovascular Rhythm: regular Heart Sounds: normal: S1, S2 - Abdomen There is marked diffuse tenderness to palpation with guarding and rebound. Patient has exacerbation of pain when lying in the full supine position, positive psoas sign bilaterally. Positive heel tap sign. Exam is consistent with diffuse peritonitis. Results - Labs 09/22/21 18:27 09/22/21 18:27 Abnormal Lab Results - Last 24 Hours (Table) 09/22/21 09/22/21 09/22/21 Range/Units 18:27 18:27 18:27 WBC 16.0 H (3.8-10.6) k/uL Neutrophils # 13.1 H (1.3-7.7) k/uL Glucose 106 H (74-99) mg/dL Urine Blood Large H (Negative) Urine RBC 8 H (0-5) /hpf Ur Squamous Epith Cells 5 H (0-4) /hpf Urine Mucus Rare H (None) /hpf Diabetes panel 09/22/21 Range/Units 18:27 Sodium 138 (137-145) mmol/L Potassium 3.6 (3.5-5.1) mmol/L Chloride 107 (98-107) mmol/L Carbon Dioxide 22 (22-30) mmol/L BUN 9 (7-17) mg/dL Creatinine 0.63 (0.52-1.04) mg/dL Glucose 106 H (74-99) mg/dL Calcium 9.1 (8.4-10.2) mg/dL AST 16 (14-36) U/L ALT 10 (4-34) U/L Alkaline Phosphatase 61 (38-126) U/L Total Protein 6.9 (6.3-8.2) g/dL Albumin 4.0 (3.5-5.0) g/dL Calcium panel 09/22/21 Range/Units 18:27 Calcium 9.1 (8.4-10.2) mg/dL Albumin 4.0 (3.5-5.0) g/dL Pituitary panel 09/22/21 Range/Units 18:27 Sodium 138 (137-145) mmol/L Potassium 3.6 (3.5-5.1) mmol/L Chloride 107 (98-107) mmol/L Carbon Dioxide 22 (22-30) mmol/L BUN 9 (7-17) mg/dL Creatinine 0.63 (0.52-1.04) mg/dL Glucose 106 H (74-99) mg/dL Calcium 9.1 (8.4-10.2) mg/dL Adrenal panel 09/22/21 Range/Units 18:27 Sodium 138 (137-145) mmol/L Potassium 3.6 (3.5-5.1) mmol/L Chloride 107 (98-107) mmol/L Carbon Dioxide 22 (22-30) mmol/L BUN 9 (7-17) mg/dL Creatinine 0.63 (0.52-1.04) mg/dL Glucose 106 H (74-99) mg/dL Calcium 9.1 (8.4-10.2) mg/dL Total Bilirubin 0.4 (0.2-1.3) mg/dL AST 16 (14-36) U/L ALT 10 (4-34) U/L Alkaline Phosphatase 61 (38-126) U/L Total Protein 6.9 (6.3-8.2) g/dL Albumin 4.0 (3.5-5.0) g/dL Assessment and Plan Assessment: Impression: 1) 21-year-old young lady with diffuse peritonitis on exam. Computed tomography scan is suggestive of some manner of vascular compromise to a long segment of ileum. No proximal occlusion seen. Punctate, trace free air throughout the abdomen could certainly be postoperative in nature given recent laparoscopy. The case was discussed with our vascular physician assistant surgery. Patient's behaving like someone with potentially a mesenteric tear and venous injury. As there is no proximal arterial process on CT angiogram would likely not be of benefit. There could possibly be internal hernia at play. As the patient's venous lactate is non elevated and she does not have flagrant signs of sepsis there is likely time to intervene. Plan: Plan: 1) Options for treatment were discussed with the patient and her mother at bedside. We presented the option of transfer to a higher level of care with vascular subspecialty availability but on discussion with all the [facility] it would seem that transfer would result in a prolonged time to intervention. The patient displays diffuse peritonitis on exam, this is an indication for emergent exploration. She would like to move forward with exploratory laparotomy without further delay, possible bowel resection or os thiago. She was advised that if the bowel looks questionable but not necrotic we may plan to leave the abdomen open with temporary abdominal closure device in place and anticipate second look. She gave informed consent for the aforementioned procedures after discussion of risks, benefits and alternatives to treatment. Time with Patient: Greater than 30
[2021-09-22] MEDS ORDERED: GLYCOPYRROLATE 0.2 MG/ML 2 ML VIAL ONE (22:58)
[2021-09-22] MEDS ORDERED: NEOSTIGMINE 1 MG/ML 10 ML VIAL ONE (22:58)
[2021-09-22] MEDS ORDERED: LIDOCAINE 1% INJ 10MG/ML (20 ML MDV) ONE (22:58)
[2021-09-22] MEDS ORDERED: fentaNYL (PF) 50 MCG/ML 2 ML AMP ONE (22:58)
[2021-09-22] MEDS ORDERED: PROPOFOL 10 MG/ML 20 ML VIAL IV ONE (22:58)
[2021-09-22] MEDS ORDERED: SUCCINYLCHOLINE CHLORIDE 100 MG/5 ML SYR IV ONE (22:58)
[2021-09-22] MEDS ORDERED: ROCURONIUM 10 MG/ML (5 ML VIAL) IV ONE (22:58)
[2021-09-22] MEDS ORDERED: MIDAZOLAM 2 MG/2 ML VIAL ONE (22:58)
[2021-09-22] MEDS ORDERED: IV FLUID CONTINUATION 1,000 ML IV ONE (23:02)
[2021-09-22] MEDS ORDERED: BUPIVACAIN-EPI 0.25%-1:200,000 30 ML VIAL SQ ONE (23:18)
[2021-09-22] MEDS ORDERED: LIDOCAINE 1% INJ 10MG/ML (20 ML MDV) SQ ONE (23:18)
[2021-09-22] MEDS ORDERED: LACTATED RINGERS 1,000 ML IV ONE (23:42)
[2021-09-23] MEDS: HYDROmorphone 0.5 MG/0.5 ML SYRINGE IVP PRN ×3 (00:17→06:56)
--- NOTE | 2021-09-23 00:22 | P.OP ---
Date of Procedure: 09/22/21 Preoperative Diagnosis: Acute abdominal pain, diffuse peritonitis, question of ischemic bowel on CT. Postoperative Diagnosis: Internal hernia with obstruction and early strangulation of 45 cm segment of ileum, no evidence of necrosis or perforation, iatrogenic injury of the small b owel mesentery Procedure(s) Performed: Exploratory laparotomy with reduction of internal hernia and closure of mesenteric defect. Anesthesia: GETA, local Surgeon: Maycol Hyde [employer] Sales Director #1: Asiya Pearson Estimated Blood Loss (ml): 20 Pathology: none sent Condition: stable Disposition: floor Indications for Procedure: Patient is a 21-year-old lady who presents to [facility] emergency department on date of surgery with chief complaint of acute onset of diffuse, unbearable abdominal pains with nausea and emesis. She underwent a laparoscopic procedure for endometriosis just less than a week ago. She been doing well until this afternoon. Laboratory studies revealed leukocytosis and the venous lactate within normal limits. Computed tomography scan however was interpreted as suggestive of vascular compromise of the long segment of ileum without a proximal thrombus and suggestive of bowel ischemia. Physical exam revealed diffuse peritonitis. Patient was empirically heparinized on contacting vascular surgery. Options for transfer to tertiary care with vascular and subspecialty availability was discussed, this would result in prolonged transfer time. Patient wished to move forward with exploration locally, expedient surgery was indicated given presence of peritonitis on exam. She gave informed consent for the aforementioned procedure after discussion of risks, and alternatives to treatment. Operative Findings: As above Description of Procedure: Patient was taken to the operative suite and placed in supine position. Following induction of general endotracheal anesthesia she was prepped and draped in sterile fashion. Local anesthesia field block was performed with 1% lidocaine and quarter percent Marcaine with epinephrine solution, lower midline abdominal incision was made with Bovie extending from the umbilicus down to the pubic symphysis sparing the previous suprapubic port site. Dissection proceeded with Bovie to the linea alba which was scored, elevated and divided longitudinally. Peritoneum was entered bluntly. There is a small to moderate amount of serosanguineous fluid present in the abdomen and pelvis. This was aspirated. The small bowel was visualized had a congested and hyperemic appearance but there was no overt bowel thickening. Small bowel was run from ligament of Treitz to the ileocecal valve revealing internal hernia along the mid to distal mesentery involving an approximately 45 cm segment of ileum with a tight band over an area of high-grade partial obstruction. There is no evidence of perforation, no seromuscular tear. There did not appear to be closed loop obstruction. After reducing the involved small bowel the congested changes re solved after a brief period of observation. There was palpable blood flow along the edge of the mesentery. A precisely 12 mm through and through injury of the mesentery through which the internal hernia had occurred was closed with running 2-0 silk along the peritoneal surface. There was no evidence of colonic injury or omental injury found. Posterior fascial block was performed with local ane sthetic and the midline fascia closed with interrupted #1 Vicryl through the anterior sheath. Incision was closed with skin stapler and Prevena VAC dressing applied over the 15 cm incision. Patient was extubated and transferred to the postanesthesia care unit in stable condition. She'll be admitted to my care postoperatively. I do anticipate a degree of postoperative ileus, NG tube will be left in place to low to moderate intermittent suction for now. She does not need to continue with antibiotics or full dose heparinization. Dr. Pearson was available to assist with exposure, retraction, dissection and closure.
[2021-09-23] MEDS ORDERED: BENZOCAINE/MENTHOL LOZENG 1 EACH LOZENGE MUCOUS MEM PRN (00:23)
[2021-09-23] MEDS ORDERED: ACETAMINOPHEN TAB 325 MG TAB PO PRN (00:23)
[2021-09-23] MEDS ORDERED: ONDANSETRON 4 MG/2 ML VIAL IVP PRN (00:23)
[2021-09-23] MEDS ORDERED: LORazepam 2 MG/ML INJ IV STA (02:10)
[2021-09-23] MEDS: NICOTINE 14MG/24HR PATCH TRANSDERM SCH ×2 (02:36→10:34)
[2021-09-23] MEDS: SODIUM CHLORIDE 0.9% 1,000 ML IV SCH ×4 (02:36→19:49)
[2021-09-23 04:19] LABS: Basophils % (A) 0 %; Eosinophils % (A) 0 %; HCT 35.8 % (34.0-46.0); HGB 12.2 gm/dL (11.4-16.0); Lymphocytes % (A) 14 %; MCH 30.9 pg (25.0-35.0); MCHC 34.2 g/dL (31.0-37.0); MCV 90.6 fL (80.0-100.0); Mean Platelet Volume 8.6; Monocytes # (A) 0.5 k/uL (0-1.0); Monocytes % (A) 4 %; Neutrophils # (A) 11.2 k/uL (1.3-7.7); Neutrophils % (A) 81 %; Platelet Count 170 k/uL (150-450); RBC 3.95 m/uL (3.80-5.40); RDW 12.3 % (11.5-15.5); WBC 13.8 k/uL (3.8-10.6)
[2021-09-23] MEDS: HYDROmorphone 1 MG/ML 1 ML SYRINGE IVP PRN ×4 (10:27→21:25)
--- NOTE | 2021-09-23 12:14 | P.PN ---
Progress Note - Text Progress Note Date: 09/23/21 Patient is seen and examined at bedside. Has complaints of waxing and waning incisional pains, marginally well controlled with present pain medication regimen. Denies nausea or vomiting, starting to feel hungry, admits to flatus. No bowel movement yet. No issues with voiding reported. Nasogastric tube is in place with scant clear aspirate. Received a dose of 0.25 Ativan for acute anxiety. Overall feeling better than before surgery. White blood cell count 13.8, hemoglobin 12.2, platelet count of 170. Temperature 98.3F, heart rate 76, blood pressure 122/71, respiratory rate 18 and 97% O2 saturation on room air. Cardiovascular: Heart rate and rhythm are regular without appreciable murmur. Respiratory: Lungs are clear auscultation bilaterally without appreciable crackles wheezes or rhonchi. Abdominal exam: Abdomen is soft, moderate incisional tenderness to palpation. Voluntary guarding, no rebound. Prevena VAC is in place, to suction without leak. Extremities: Distal extremities well-perfused, no edema. Impression: 1) 21-year-old young lady postoperative day 1 from exploratory laparotomy, reduction of internal hernia with small bowel obstruction and early strangulation/venous congestion of an approximately 45 similar segment of distal ileum, closure of mesenteric defect. Perfusion returned on reduction of hernia, no need for resection. Plan: 1) Nasogastric tube removed at bedside, will advance to clear liquids today, titrate IV fluids. Will add Toradol 15 mg for baseline nonnarcotic pain relief. Advised patient on the importance of activity, would like to see her ambulatory least 3 times daily and up to chair at mealtime. Anticipate an additional 48 hour stay.
[2021-09-23] MEDS: KETOROLAC 30 MG/ML 1 ML VIAL IVP PRN ×2 (12:30→19:47)
--- NOTE | 2021-09-23 14:18 | P.OBCN ---
History of Present Illness Consult date: 09/22/21 Requesting physician: Maycol Villela Reason for consult: other (Complication 3 days postoperative) Chief complaint: Severe abdominal pain History of present illness: This is a 21-year-old female 0 who underwent a laparoscopy with ablation of endometriosis and drainage of left ovarian cyst on 09/19/[address] Moore. She came to the emergency room for severe abdominal pain that started fairly suddenly at approximately 3 PM on 09/22/2021. She states she hadn't had a bowel movement in 8 days at that time. She did state she had been straining a little bit to try to have a bowel movement did not rate at that time that the pain happened. She states she felt "weird" right after surgery but couldn't describe her symptoms. She states the pain comes in waves but is always constantly there. Pain medication has barely touched her pain. I was contacted from the ER by Dr. Villela since she had surgery 3 days prior to admission. He stated that the computed tomography scan suggested ischemic bowel. I recommended he contact general surgery. I did discuss the case with Dr. Hyde right before surgery and offered to assist in surgery. Review of Systems Constitutional: Denies chills, Denies fever Eyes: denies blurred vision, denies pain Ears, nose, mouth and throat: Denies headache, Denies sore throat Cardiovascular: Denies chest pain, Denies shortness of breath Respiratory: Denies cough Gastrointestinal: Reports abdominal pain, Reports constipation, Reports nausea, Reports vomiting Genitourinary: Reports pelvic pain, Denies abnormal vaginal bleeding Integumentary: Denies pruritus, Denies rash Neurological: Denies numbness, Denies weakness Psychiatric: Reports anxiety Past Medical History Additional Past Medical History / Comment(s): IBS, orthostatic hypotension, History of Any Multi-Drug Resistant Organisms: None Reported Past Surgical History: Adenoidectomy, Tonsillectomy Additional Past Surgical History / Comment(s): Endometriosis laproscopic surgery on 09/19/21. Past Anesthesia/Blood Transfusion Reactions: No Reported Reaction Past Psychological History: Anxiety, Depression, PTSD Smoking Status: Current every day smoker Past Alcohol Use History: None Reported, Occasional Past Drug Use History: Marijuana Medications and Allergies Home Medications Medication Instructions Recorded Confirmed Type Acetaminophen-Codeine 300-30mg 1 - 2 tab PO Q6H PRN #20 tablet 09/19/21 09/22/21 Rx [Tylenol #3] Ibuprofen [Motrin] 600 mg PO Q6HR PRN #30 tab 09/19/21 09/22/21 Rx Allergies Allergy/AdvReac Type Severity Reaction Status Date / Time amoxicillin Allergy Rash/Hives Verified 09/22/21 18:39 morphine Allergy Rapid Verified 09/22/21 18:39 Heart Rate Penicillins Allergy Rash/Hives Verified 09/22/21 18:39 Exam Osteopathic Statement: *. No significant issues noted on an osteopathic structural exam other than those noted in the History and Physical/Consult. Vital Signs Temp Pulse Pulse Pulse Resp BP BP 09/23/21 03:50 98.3 F 76 18 122/71 09/23/21 03:48 18 09/23/21 02:50 74 131/73 09/23/21 02:20 75 129/76 09/23/21 01:50 84 110/74 09/23/21 01:20 78 116/71 09/23/21 00:55 98.1 F 94 20 113/65 09/23/21 00:32 73 16 118/56 09/23/21 00:17 84 16 118/70 09/23/21 00:02 96.9 F L 75 16 130/68 09/22/21 21:48 79 18 121/70 09/22/21 19:54 70 18 121/69 09/22/21 19:20 72 18 116/74 09/22/21 17:51 98.4 F 84 22 135/78 Pulse Ox 09/23/21 03:50 97 09/23/21 03:48 09/23/21 02:50 96 09/23/21 02:20 97 09/23/21 01:50 99 09/23/21 01:20 98 09/23/21 00:55 97 09/23/21 00:32 99 09/23/21 00:17 100 09/23/21 00:02 99 09/22/21 21:48 100 09/22/21 19:54 97 09/22/21 19:20 98 09/22/21 17:51 99 Intake and Output 09/22/21 09/23/21 09/23/21 22:59 06:59 14:59 Intake Total 900 0 Output Total 125 Balance 775 0 Intake: IV 900 Oral 0 0 Output: Urine 110 Estimated Blood Loss 15 Other: Weight 67.132 kg 67.132 kg No exam was performed as the patient was seen in preop right before surgery and had already been evaluated by emergency room physician. Results Result Diagrams: 09/23/21 03:33 09/22/21 18:27 Abnormal Lab Results - Last 24 Hours (Table) 09/22/21 09/22/21 09/22/21 Range/Units 18:27 18:27 18:27 WBC 16.0 H (3.8-10.6) k/uL Neutrophils # 13.1 H (1.3-7.7) k/uL Glucose 106 H (74-99) mg/dL Urine Blood Large H (Negative) Urine RBC 8 H (0-5) /hpf Ur Squamous Epith Cells 5 H (0-4) /hpf Urine Mucus Rare H (None) /hpf 09/23/21 Range/Units 03:33 WBC 13.8 H (3.8-10.6) k/uL Neutrophils # 11.2 H (1.3-7.7) k/uL Glucose (74-99) mg/dL Urine Blood (Negative) Urine RBC (0-5) /hpf Ur Squamous Epith Cells (0-4) /hpf Urine Mucus (None) /hpf Assessment and Plan (1) Acute abdomen Current Visit: Yes Status: Acute Code(s): R10.0 - ACUTE ABDOMEN SNOMED Code(s): 6862434 (2) Ischemic bowel disease Current Visit: Yes Status: Acute Code(s): K55.9 - VASCULAR DISORDER OF INTESTINE, UNSPECIFIED SNOMED Code(s): 05982237 Plan: Patient is admitted to Dr. Hyde for immediate surgery for possible ischemic bowel. She is 3 days postoperative from a laparoscopy with ablation of endometriosis and drainage of left ovarian cyst by Dr. Moore. It is uncertain at the time of this consultation if this complication is related to her previous surgery or not. I have offered to assist Dr. Hyde in surgery.
--- NOTE | 2021-09-23 14:23 | P.PN ---
Progress Note - Text Progress Note Date: 09/23/21 Patient is doing much better today than yesterday. She states she still has not had a bowel movement yet. I did explain the surgical findings to her. I advised her that there was a small rent in the mesentery of her bowel that was not bleeding. It appeared that her small bowel herniated through this small hole and was being strangulated. Since her bowel was still viable, Dr. Don was able to reduce the hernia and repair the rent in the mesentery. I explained that this is a known complication of laparoscopy however it is very rare. I believe that the herniation of her bowel through this small hole may have been due to her constipation and bearing down. I advised her that it's a good thing she came to the emergency room when she did, because if she had waited longer, the bowel may not have been able to be saved. I advised her that I will continue to follow her this weekend and I will let Dr. Moore know about this complication when she returns on Saturday.
[2021-09-24] MEDS: HYDROmorphone 1 MG/ML 1 ML SYRINGE IVP PRN ×7 (00:37→20:51)
[2021-09-24] MEDS: KETOROLAC 30 MG/ML 1 ML VIAL IVP PRN ×3 (02:55→19:40)
[2021-09-24] MEDS: NICOTINE 14MG/24HR PATCH TRANSDERM SCH (08:02)
[2021-09-24 09:21] LABS: Basophils # (A) 0.01 X 10*3/uL (0.00-0.10); Basophils % (A) 0.1 %; Eosinophils # (A) 0.09 X 10*3/uL (0.04-0.35); Eosinophils % (A) 1.1 %; HCT 31.7 % (37.2-46.3); HGB 10.4 g/dL (12.0-15.0); Immature Grans, Automated 0.2 %; Lymphocytes # (A) 2.17 X 10*3/uL (0.90-5.00); Lymphocytes % (A) 26.7 %; MCH 29.4 pg (27.0-32.0); MCHC 32.8 g/dL (32.0-37.0); MCV 89.5 fL (80.0-97.0); Mean Platelet Volume 11.6 fL (9.5-12.2); Monocytes # (A) 0.82 X 10*3/uL (0.20-1.00); Monocytes % (A) 10.1 %; NRBC Per 100 WBC 0 /100 WBCS (0.0-0.0); Neutrophils # (A) 5.02 X 10*3/uL (1.80-7.70); Neutrophils % (A) 61.8 %; Platelet Count 150 X 10*3/uL (140-440); RBC 3.54 X 10*6/uL (4.10-5.20); RDW 12.3 % (11.5-14.5); WBC 8.13 X 10*3/uL (4.50-10.00)
[2021-09-24 10:18] LABS: Albumin 3.5 g/dL (3.8-4.9); Albumin/Globulin Ratio 1.94 (1.60-3.17); Anion Gap 10.4 mmol/L (10.00-18.00); BUN/Creat Ratio 14.57 Ratio (12.00-20.00); Blood Urea Nitrogen 7.3 mg/dL (9.0-27.0); Calcium 8.5 mg/dL (8.7-10.3); Carbon Dioxide 21.8 mmol/L (20.0-27.5); Globulin 1.8 g/dL (1.6-3.3); Non-African American GFR(CKD) 138.1 (60.0-200.0); Potassium 3.7 mmol/L (3.5-5.5); Total Bilirubin 0.5 mg/dL (0.30-1.20); Total Protein 5.2 g/dL (6.2-8.2)
--- NOTE | 2021-09-24 11:13 | P.PN ---
Progress Note - Text Progress Note Date: 09/24/21 Patient is seen and examined at bedside. Doing much better today than yesterday, incisional pain starting to taper off. some burning sensation towards the mid aspect of her incision. Has been tolerating clear liquids for the most part, admits to some mild nausea without emesis overnight. Has been ambulatory in the halls. Voiding without issue, positive flatus, no bowel movement yet. Comfortable at rest. Feeling much better than before surgery. White blood cell count 8.3, hemoglobin 10.4, platelet count of 150. Serum sodium 137, potassium 3.7, CO 2 of 21.8, creatinine 0.5, glucose of 83. Liver function studies within normal limits. Temperature 98.9F, heart rate 73, blood pressure 111/70, respiratory rate 18 and 96% O2 saturation on room air. Cardiovascular: Heart rate and rhythm are regular without appreciable murmur. Respiratory: Lungs are clear auscultation bilaterally without appreciable crackles wheezes or rhonchi. Abdominal exam: Abdomen is soft, minimal incisional tenderness to palpation. No guarding, rebound, or distention. Prevena VAC is in place, to suction without leak. Extremities: Distal extremities well-perfused, no edema. Impression: 1) 21-year-old young lady postoperative day 2 from exploratory laparotomy, reduction of internal hernia with small bowel obstruction and early strangulation/venous congestion of an approximately 45 cm segment of distal ileum, closure of mesenteric defect. Perfusion returned on reduction of hernia, no need for resection. Plan: 1) Clear liquids for now, titrate IV fluids. Will add Colace per patient request. Toradol 15 mg for baseline nonnarcotic pain relief. Transition to oral pain medications as postoperative ileus clears. Anticipate an additional 24 hour stay.
[2021-09-24] MEDS: D5-0.45% NACL WITH KCL 20MEQ/L 1,000 ML IV SCH (11:40)
[2021-09-24] MEDS: DOCUSATE 100 MG CAP PO SCH ×2 (11:40→19:41)
--- NOTE | 2021-09-24 13:46 | P.PN ---
Progress Note - Text Progress Note Date: 09/24/21 Patient states she is feeling better than yesterday. She did have a little bit of nausea yesterday. She passed some flatus yesterday but none today. Pain is overall doing better. She had questions about whether she would need some extra help at home when she does go home. She can go and stay with her mother if needed. Advised that she should go wherever she feels most comfortable and can get the most help. Dr. Moore will be back tomorrow and will see patient tomorrow.
[2021-09-24] MEDS ORDERED: DOCUSATE 100 MG CAP PO SCH (21:00)
[2021-09-25] MEDS: HYDROmorphone 1 MG/ML 1 ML SYRINGE IVP PRN ×3 (00:11→09:41)
[2021-09-25] MEDS: KETOROLAC 30 MG/ML 1 ML VIAL IVP PRN ×4 (01:57→20:34)
--- NOTE | 2021-09-25 07:43 | P.PN ---
Progress Note - Text Progress Note Date: 09/25/21 S/P diagnostic laparoscopy with cauterization of endometriosis and aspiration of ovarian cyst POD #6 S/P exploratory laparotomy with repair of mesentary POD #2 Pt seen and examined today. Her dressing is still in place. she has been eating clears but passing flatus and denies nausea now. Pain is controlled with toradol and dilaudid. I had a long talk with patient regarding surgical findings during her laparoscopy. We spoke about her history of IBS and endometriosis. We spoke about the expectations of a surgical procedure but the risks and possible complications as well. I reminded her about our conversation in the office regarding risks and potential further surgeries from complicati ons. We spoke about her healing process and what that may look like going forward. Pt is in better spirits when I left the room. She is looking forward to increasing her walking. VSS abdomen: soft, +bowel signs, dressing in place Extremeties: neg marcel's A1. S/P diagnostic laparoscopy with cauterization of endometriosis and aspiration of ovarian cyst POD #6 2. S/P exploratory laparotomy with repair of mesentary POD #2 P1. rec advance diet 2. rec change to po pain meds 3. increase ambulation
[2021-09-25] MEDS: NICOTINE 14MG/24HR PATCH TRANSDERM SCH (08:23)
[2021-09-25] MEDS: DOCUSATE 100 MG CAP PO SCH ×2 (08:23→19:22)
[2021-09-25] MEDS: D5-0.45% NACL WITH KCL 20MEQ/L 1,000 ML IV SCH (09:43)
[2021-09-25 10:18] LABS: Basophils # (A) 0.01 X 10*3/uL (0.00-0.10); Basophils % (A) 0.1 %; Eosinophils # (A) 0.17 X 10*3/uL (0.04-0.35); Eosinophils % (A) 2.5 %; HCT 31.6 % (37.2-46.3); HGB 10.6 g/dL (12.0-15.0); Immature Grans, Automated 0.3 %; Lymphocytes # (A) 1.83 X 10*3/uL (0.90-5.00); Lymphocytes % (A) 27.4 %; MCH 29.7 pg (27.0-32.0); MCHC 33.5 g/dL (32.0-37.0); MCV 88.5 fL (80.0-97.0); Mean Platelet Volume 11.6 fL (9.5-12.2); Monocytes # (A) 0.67 X 10*3/uL (0.20-1.00); NRBC Per 100 WBC 0 /100 WBCS (0.0-0.0); Neutrophils # (A) 3.98 X 10*3/uL (1.80-7.70); Neutrophils % (A) 59.7 %; Platelet Count 157 X 10*3/uL (140-440); RBC 3.57 X 10*6/uL (4.10-5.20); RDW 11.9 % (11.5-14.5); WBC 6.68 X 10*3/uL (4.50-10.00)
[2021-09-25 10:26] LABS: African American GFR (CKD) 160.3 (60.0-200.0); Albumin 3.6 g/dL (3.8-4.9); Albumin/Globulin Ratio 1.89 (1.60-3.17); BUN/Creat Ratio 10.6 Ratio (12.00-20.00); Blood Urea Nitrogen 5.3 mg/dL (9.0-27.0); Calcium 8.6 mg/dL (8.7-10.3); Globulin 1.9 g/dL (1.6-3.3); Non-African American GFR(CKD) 138.3 (60.0-200.0); Potassium 3.6 mmol/L (3.5-5.5); Total Bilirubin 0.4 mg/dL (0.30-1.20); Total Protein 5.5 g/dL (6.2-8.2)
[2021-09-25] MEDS: HYDROcodone/APAP 5-325MG 1 EACH TAB PO PRN ×2 (12:54→19:22)
--- NOTE | 2021-09-25 13:24 | P.PN ---
Subjective Progress Note Date: 09/25/21 Patient seen and examined at bedside. States she is beginning to have flatus. States she is also hungry like solid foods. She states she is ambulating. States pain is pretty well controlled. Objective - Vital Signs Vital signs: Vital Signs Temp 98.5 F 09/25/21 04:15 Pulse 70 09/25/21 04:15 Resp 16 09/25/21 04:15 BP 107/65 09/25/21 04:15 Pulse Ox 98 09/25/21 04:15 Intake & Output 09/24/21 09/25/21 09/25/21 18:59 06:59 18:59 Intake Total 1920 600 Output Total 0 Balance 1920 600 Intake: Intake, IV Titration 600 600 Amount D5-0.45% NaCl with KCl 300 600 20Meq/l 1,000 ml @ 50 mls /hr IV .Q20H MAYKEL Rx#: [id number] Sodium Chloride 0.9% 1, 300 000 ml @ 75 mls/hr IV . [id number] MAYKEL Rx#:[id number] Oral 1320 Output: Urine 0 Other: Voiding Method Toilet # Voids 4 4 - Constitutional General appearance: Present: cooperative - Respiratory Details: No difficulty with respiration - Gastrointestinal Gastrointestinal Comment(s): Soft, appropriate tenderness, nondistended, no rebound, no guarding, midline incision clean, dry - Psychiatric Psychiatric: Present: A&O x's 3 - Labs CBC & Chem 7: 09/25/21 06:46 09/25/21 06:46 Labs: Abnormal Lab Results - Last 24 Hours (Table) 09/25/21 09/25/21 Range/Units 06:46 06:46 RBC 3.57 L (4.10-5.20) X 10*6/uL Hgb 10.6 L (12.0-15.0) g/dL Hct 31.6 L (37.2-46.3) % Anion Gap 9.00 L (10.00-18.00) mmol/L BUN 5.3 L (9.0-27.0) mg/dL Creatinine 0.5 L (0.6-1.5) mg/dL BUN/Creatinine Ratio 10.60 L (12.00-20.00) Ratio Calcium 8.6 L (8.7-10.3) mg/dL AST 10 L (13-35) U/L Total Protein 5.5 L (6.2-8.2) g/dL Albumin 3.6 L (3.8-4.9) g/dL Assessment and Plan Plan: 1. S/P diagnostic laparoscopy with cauterization of endometriosis and aspiration of ovarian cyst 2. S/P exploratory laparotomy with repair of mesentary Postoperative day #2 Patient appears to be improving well. We will advance to a soft diet. Continue with increased ambulation. Patient is tolerating diet, likely discharge in the next 24 hours. Replaced IV pain medication with oral pain medication.
[2021-09-25] MEDS: LACTATED RINGERS 1,000 ML IV SCH (14:28)
[2021-09-25 20:58] VITALS: RESP 18
[2021-09-26] MEDS: LACTATED RINGERS 1,000 ML IV SCH (00:43)
[2021-09-26] MEDS: HYDROcodone/APAP 5-325MG 1 EACH TAB PO PRN ×2 (00:43→07:59)
[2021-09-26 04:15] VITALS: BP 105/64; PULSE 87; TEMP 98.3
[2021-09-26] MEDS: KETOROLAC 30 MG/ML 1 ML VIAL IVP PRN (04:15)
[2021-09-26] MEDS: DOCUSATE 100 MG CAP PO SCH (07:59)
[2021-09-26] MEDS: NICOTINE 14MG/24HR PATCH TRANSDERM SCH (07:59)
--- NOTE | 2021-09-26 08:03 | P.PN ---
Progress Note - Text Progress Note Date: 09/26/21 Pt seen and examined at bedside. Pain is controlled with oral meds. She is tolerating a regular diet, passing flatus and had a small BM. Denies nausea, vomiting, chest pain, shortness of breath or any calf pain. She is ambulating and voiding without difficulty. Vital signs stable Abdomen soft, nontender, incision is still covered with dressing. Extremities: Negative Homans sign Assessment 1 status post diagnostic laparoscopy with cauterization of endometriosis and aspiration of left ovarian cyst postop day #7 2. Status post exploratory laparotomy and repair of mesentery postop day #3 Plan 1. Continue postop care and likely discharge later today by surgery. 2. Follow-up with me in one week.
[2021-09-26 09:07] LABS: Basophils # (A) 0.02 X 10*3/uL (0.00-0.10); Basophils % (A) 0.3 %; Eosinophils # (A) 0.16 X 10*3/uL (0.04-0.35); Eosinophils % (A) 2.6 %; HCT 31.9 % (37.2-46.3); HGB 10.5 g/dL (12.0-15.0); Immature Grans, Automated 0.2 %; Lymphocytes # (A) 2.03 X 10*3/uL (0.90-5.00); Lymphocytes % (A) 32.6 %; MCH 29.4 pg (27.0-32.0); MCHC 32.9 g/dL (32.0-37.0); MCV 89.4 fL (80.0-97.0); Mean Platelet Volume 11.5 fL (9.5-12.2); Monocytes # (A) 0.68 X 10*3/uL (0.20-1.00); Monocytes % (A) 10.9 %; NRBC Per 100 WBC 0 /100 WBCS (0.0-0.0); Neutrophils # (A) 3.33 X 10*3/uL (1.80-7.70); Neutrophils % (A) 53.4 %; Platelet Count 175 X 10*3/uL (140-440); RBC 3.57 X 10*6/uL (4.10-5.20); RDW 11.9 % (11.5-14.5); WBC 6.23 X 10*3/uL (4.50-10.00)
[2021-09-26 09:19] LABS: African American GFR (CKD) 158.3 (60.0-200.0); Albumin 3.4 g/dL (3.8-4.9); Albumin/Globulin Ratio 1.73 (1.60-3.17); Anion Gap 10.1 mmol/L (10.00-18.00); BUN/Creat Ratio 14.88 Ratio (12.00-20.00); Blood Urea Nitrogen 7.7 mg/dL (9.0-27.0); Calcium 8.7 mg/dL (8.7-10.3); Carbon Dioxide 22.9 mmol/L (20.0-27.5); Non-African American GFR(CKD) 136.6 (60.0-200.0); Potassium 3.9 mmol/L (3.5-5.5); Total Bilirubin 0.4 mg/dL (0.30-1.20); Total Protein 5.4 g/dL (6.2-8.2)
[2021-09-26] MEDS ORDERED: KETOROLAC 30 MG/ML 1 ML VIAL IVP PRN (10:47)
--- NOTE | 2021-09-26 14:42 | P.DS ---
Providers Date of admission: 09/22/21 21:59 Attending physician: Maycol Hyde DO Consults: 09/22/21 22:37 Consult Physician Routine Consulting Provider: [facility] Consult Reason/Comments: [facility] Do you want consulting provider notified?: Yes Primary care physician: Reyes Watson [facility] Course: 21-year-old female presented to the emergency department approximately 72 hours after laparoscopy secondary to endometriosis. On work-up, she was found to have concern for ischemic bowel. She was taken for laparotomy and was found to have internal hernia. This was reduced and repaired. Postoperatively, patient was sent to the medical surgical floor. He did improve throughout her admission. Diet was advanced as tolerated. Wound care was provided. Patient is noted to be surgically stable for discharge. Discharge instructions were provided along with wound care and activity instructions. She is to follow-up with the surgery clinic in approximately 1 week. Procedures: Exploratory laparotomy wioth closure of mesentery defect Patient Condition at Discharge: Fair Plan - Discharge Summary Discharge Rx Participant: Yes New Discharge Prescriptions: New HYDROcodone/APAP 5-325MG [Garner 5-325] 1 each PO Q6HR PRN #15 tab PRN Reason: SEVERE Pain Continue Ibuprofen [Motrin] 600 mg PO Q6HR PRN #30 tab PRN Reason: Mild Pain Or Fever >= 100.5 Discontinued Acetaminophen-Codeine 300-30mg [Tylenol #3] 1 - 2 tab PO Q6H PRN #20 tablet PRN Reason: Pain Discharge Medication List Ibuprofen [Motrin] 600 mg PO Q6HR PRN #30 tab 09/19/21 [Rx] HYDROcodone/APAP 5-325MG [Garner 5-325] 1 each PO Q6HR PRN #15 tab 09/26/21 [Rx] Follow up Appointment(s)/Referral(s): Rose Marie Moore DO [Doctor of Osteopathic Medicine] - 10/02/21 11:30 am Reyes Watson DO [Primary Care Provider] - 10/03/21 11:00 am Steven Cheek DO [Doctor of Osteopathic Medicine] - 10/04/21 11:15 am Patient Instructions/Handouts: Hydrocodone/Acetaminophen (By mouth), How to Stop Smoking (DC), Exploratory Laparotomy (DC), Incisional Hernia (DC) Activity/Diet/Wound Care/Special Instructions: No lifting greater than 5 pounds Dressing to abdomen is not required but can be used for comfort. Okay to shower beginning today. No tub baths. Do not scrub on incision, pat dry Soft food diet Take stool softeners with narcotic pain medication Discharge Disposition: HOME SELF-CARE
--- NOTE | 2021-09-28 12:33 | CDI ---
Documentation Clarification Form Date: 09/28/2021 12:25:55 PM From: [place] Perkins: Admit Date: 09/22/2021 09:59:00 PM Patient Name: [place] Mercedes Visit Number: [id number] Discharge Date: 09/26/2021 12:00:00 PM ATTENTION: The Clinical Documentation Specialists (CDI) and [facility] Coding Staff appreciate your assistance in clarifying documentation. Please respond to the clarification below the line at the bottom and electronically sign. The CDI & [facility] Coding staff will review the response and follow-up if needed. Please note: Queries are made part of the Legal Health Record. If you have any questions, please contact the author of this message via ITS. Dr. Harris A [facility] Patient admitted with acute peritonitis and abdominal hernia. Had a laproscopy 72 hours prior for endometriosis. OR report indicates an iatrogenic injury to the messentary. Please indicate the relationship between the prior procedure and the abdominal hernia if any. History/Risk Factors: acute peritonitis, abdominal hernia with obstruction Clinical Indicators: abdominal pain, pancreatitis Treatment: open repair of messentary and abdominal hernia Please clarify the relationship, if any, which is clinically appropriate for this patient: [ ] abdominal hernia is due to prior laproscopic proceedure [ ] abdominal hernia is not related to prior laproscopic proceedure [ ] Other explanation of clinical findings (please specify) [ x ] Unable to determine (no explanation for clinical findings) MTDD
== END 2021-09-26 12:00 | disposition home or self-care (01) | DRG 353 ==
LOC: EC 17:47 → 2SICU 21:59 → 5NMEDONC 23:40
PROVIDERS: ADMIT Surgery; ATTEND Surgery
PROC: 0DQV0ZZ Repair Mesentery, Open Approach (ICD-10-PCS; principal; 2021-09-23)
PROC: 0WQF0ZZ Repair Abdominal Wall, Open Approach (ICD-10-PCS; 2021-09-23)
DX: K46.0 Unspecified abdominal hernia with obstruction, without gangrene (principal); K65.0 Generalized (acute) peritonitis; K55.9 Vascular disorder of intestine, unspecified; F17.200 Nicotine dependence, unspecified, uncomplicated; F43.10 Post-traumatic stress disorder, unspecified; I95.1 Orthostatic hypotension; N80.9 Endometriosis, unspecified; K59.00 Constipation, unspecified; Z20.822 Contact with and (suspected) exposure to COVID-19; Z88.1 Allergy status to other antibiotic agents; Z88.5 Allergy status to narcotic agent; Z88.0 Allergy status to penicillin
CPT/HCPCS: 36415; 74018; 74177; 80053; 81001; 81025; 82150; 83605; 83690; 85025; 85610; 85730; 86850; 86900; 86901; 87635; 96374; 96375; 96376; 99291

== ENCOUNTER 2021-09-27 06:47 | Emergency (ER) | payer OTHER ==
[2021-09-27 07:10] LABS: Basophils % (A) 0 %; Eosinophils # (A) 0.3 k/uL (0-0.7); Eosinophils % (A) 4 %; HCT 33.1 % (34.0-46.0); HGB 11.6 gm/dL (11.4-16.0); Lymphocytes # (A) 1.5 k/uL (1.0-4.8); Lymphocytes % (A) 23 %; MCH 31.4 pg (25.0-35.0); MCV 89.6 fL (80.0-100.0); Mean Platelet Volume 8.1; Monocytes # (A) 0.4 k/uL (0-1.0); Monocytes % (A) 7 %; Neutrophils # (A) 4.1 k/uL (1.3-7.7); Neutrophils % (A) 64 %; Platelet Count 201 k/uL (150-450); RBC 3.69 m/uL (3.80-5.40); WBC 6.5 k/uL (3.8-10.6)
[2021-09-27] MEDS ORDERED: HYDROmorphone 1 MG/ML 1 ML SYRINGE IVP STA (07:14)
[2021-09-27] MEDS ORDERED: SODIUM CHLORIDE 0.9% 1,000 ML IV ONE (07:14)
[2021-09-27 07:26] LABS: ALT 12 U/L (4-34); African American GFR (CKD) >90 (>60 ml/min/1.73 sqM); Albumin 3.4 g/dL (3.5-5.0); Anion Gap 4 mmol/L; Blood Urea Nitrogen 7 mg/dL (7-17); Carbon Dioxide 25 mmol/L (22-30); Chloride 112 mmol/L (98-107); Glucose 94 mg/dL (74-99); Lipase 59 U/L (23-300); Non-African American GFR(CKD) >90 (>60 ml/min/1.73 sqM); Sodium 141 mmol/L (137-145); Total Bilirubin 0.6 mg/dL (0.2-1.3); Total Protein 6.3 g/dL (6.3-8.2)
--- NOTE | 2021-09-27 07:32 | ED ---
General Adult HPI - General Chief complaint: Abdominal Pain Stated complaint: Abd Pain Time Seen by Provider: 09/27/21 07:01 Source: patient, EMS, RN notes reviewed, old records reviewed Mode of arrival: EMS Limitations: no limitations - History of Present Illness Initial comments: 21-year-old female presenting for evaluation of abdominal pain and nausea. Patient was discharged from this institution yesterday after laparotomy for internal hernia. She had had a laparoscopic procedure for endometriosis followed by internal hernia and laparotomy. She was discharged on oral pain medications yesterday. Today her pain is increased. She's had nausea. She did have a loose bowel movement this morning. No measured fevers. - Related Data Home Medications Medication Instructions Recorded Confirmed HYDROcodone/APAP 5-325MG [[place] 1 tab PO Q6HR PRN 09/27/21 09/27/21 5-325] Previous Rx's Medication Instructions Recorded Ibuprofen [Motrin] 600 mg PO Q6HR PRN #30 tab 09/19/21 Cephalexin [Keflex] 500 mg PO Q12HR #20 cap 09/27/21 Ondansetron Odt [Zofran Odt] 4 mg PO Q8HR PRN #10 tab 09/27/21 Allergies Allergy/AdvReac Type Severity Reaction Status Date / Time amoxicillin Allergy Rash/Hives Verified 09/27/21 07:34 Penicillins Allergy Rash/Hives Verified 09/27/21 07:34 morphine AdvReac Rapid Verified 09/27/21 07:34 Heart Rate Review of Systems ROS Statement: Those systems with pertinent positive or pertinent negative responses have been documented in the HPI. ROS Other: All systems not noted in ROS Statement are negative. Past Medical History Additional Past Medical History / Comment(s): IBS, orthostatic hypertension, borderline diabetic. History of Any Multi-Drug Resistant Organisms: None Reported Past Surgical History: Adenoidectomy, Tonsillectomy Additional Past Surgical History / Comment(s): Endometriosis laproscopic surgery on 09/19/21. Past Anesthesia/Blood Transfusion Reactions: No Reported Reaction Past Psychological History: Anxiety, PTSD Smoking Status: Current every day smoker, Vaper Past Alcohol Use History: None Reported, Occasional Past Drug Use History: Marijuana General Exam Limitations: no limitations General appearance: alert, in no apparent distress Head exam: Present: atraumatic, normocephalic Eye exam: Present: normal appearance, PERRL ENT exam: Present: normal exam Neck exam: Present: normal inspection. Absent: tenderness, meningismus Respiratory exam: Present: normal lung sounds bilaterally. Absent: respiratory distress, wheezes Cardiovascular Exam: Present: regular rate, normal rhythm GI/Abdominal exam: Present: soft, tenderness (Diffuse generalized tenderness), other (Midline surgical scar, well-healing, no signs of infection). Absent: distended Extremities exam: Present: normal inspection, normal capillary refill Neurological exam: Present: alert, oriented X3, CN II-XII intact. Absent: motor sensory deficit Psychiatric exam: Present: anxious Skin exam: Present: warm, dry. Absent: cyanosis, diaphoretic Course Vital Signs 09/27/21 09/27/21 06:48 07:34 Temperature 99.6 F Pulse Rate 85 72 Respiratory 16 18 Rate Blood Pressure 122/71 111/54 O2 Sat by Pulse 98 98 Oximetry Medical Decision Making - Medical Decision Making 21-year-old female presenting with abdominal pain and nausea. Patient is status post both laparoscopy and laparotomy. She is well-appearing with stable vitals. She has some minimal generalized tenderness no rebound or guarding. Surgical incision appears well healing. Her laboratory studies are unremarkable. She is evaluated by Dr. Cheek in the emergency department. Both of us agree that the patient is stable for discharge she will be prescribed Zofran as well is given an abdominal pain. - Lab Data Result diagrams: 09/27/21 06:56 09/27/21 06:56 Lab Results 09/27/21 09/27/21 09/27/21 Range/Units 06:56 06:56 06:56 WBC 6.5 (3.8-10.6) k/uL RBC 3.69 L (3.80-5.40) m/uL Hgb 11.6 (11.4-16.0) gm/dL Hct 33.1 L (34.0-46.0) % MCV 89.6 (80.0-100.0) fL MCH 31.4 (25.0-35.0) pg MCHC 35.0 (31.0-37.0) g/dL RDW 12.0 (11.5-15.5) % Plt Count 201 (150-450) k/uL MPV 8.1 Neutrophils % 64 % Lymphocytes % 23 % Monocytes % 7 % Eosinophils % 4 % Basophils % 0 % Neutrophils # 4.1 (1.3-7.7) k/uL Lymphocytes # 1.5 (1.0-4.8) k/uL Monocytes # 0.4 (0-1.0) k/uL Eosinophils # 0.3 (0-0.7) k/uL Basophils # 0.0 (0-0.2) k/uL PT 10.6 (9.0-12.0) sec INR 1.0 (<1.2) APTT 25.1 (22.0-30.0) sec Sodium 141 (137-145) mmol/L Potassium 3.7 (3.5-5.1) mmol/L Chloride 112 H (98-107) mmol/L Carbon Dioxide 25 (22-30) mmol/L Anion Gap 4 mmol/L BUN 7 (7-17) mg/dL Creatinine 0.56 (0.52-1.04) mg/dL Est GFR (CKD-EPI)AfAm >90 (>60 ml/min/1.73 sqM) Est GFR (CKD-EPI)NonAf >90 (>60 ml/min/1.73 sqM) Glucose 94 (74-99) mg/dL Plasma Lactic Acid Jose A (0.7-2.0) mmol/L Calcium 9.0 (8.4-10.2) mg/dL Total Bilirubin 0.6 (0.2-1.3) mg/dL AST 23 (14-36) U/L ALT 12 (4-34) U/L Alkaline Phosphatase 42 (38-126) U/L Total Protein 6.3 (6.3-8.2) g/dL Albumin 3.4 L (3.5-5.0) g/dL Lipase 59 (23-300) U/L Urine Color Urine Appearance (Clear) Urine pH (5.0-8.0) Ur Specific [place] (1.001-1.035) Urine Protein (Negative) Urine Glucose (UA) (Negative) Urine Ketones (Negative) Urine Blood (Negative) Urine Nitrite (Negative) Urine Bilirubin (Negative) Urine Urobilinogen (<2.0) mg/dL Ur Leukocyte Esterase (Negative) Urine RBC (0-5) /hpf Urine WBC (0-5) /hpf Urine WBC Clumps (None) /hpf Ur Squamous Epith Cells (0-4) /hpf Urine Bacteria (None) /hpf Urine Mucus (None) /hpf Urine HCG, Qual (Not Detectd) Coronavirus (PCR) (Not Detectd) 09/27/21 09/27/21 09/27/21 Range/Units 06:56 07:38 08:17 WBC (3.8-10.6) k/uL RBC (3.80-5.40) m/uL Hgb (11.4-16.0) gm/dL Hct (34.0-46.0) % MCV (80.0-100.0) fL MCH (25.0-35.0) pg MCHC (31.0-37.0) g/dL RDW (11.5-15.5) % Plt Count (150-450) k/uL MPV Neutrophils % % Lymphocytes % % Monocytes % % Eosinophils % % Basophils % % Neutrophils # (1.3-7.7) k/uL Lymphocytes # (1.0-4.8) k/uL Monocytes # (0-1.0) k/uL Eosinophils # (0-0.7) k/uL Basophils # (0-0.2) k/uL PT (9.0-12.0) sec INR (<1.2) APTT (22.0-30.0) sec Sodium (137-145) mmol/L Potassium (3.5-5.1) mmol/L Chloride (98-107) mmol/L Carbon Dioxide (22-30) mmol/L Anion Gap mmol/L BUN (7-17) mg/dL Creatinine (0.52-1.04) mg/dL Est GFR (CKD-EPI)AfAm (>60 ml/min/1.73 sqM) Est GFR (CKD-EPI)NonAf (>60 ml/min/1.73 sqM) Glucose (74-99) mg/dL Plasma Lactic Acid Jose A 0.8 (0.7-2.0) mmol/L Calcium (8.4-10.2) mg/dL Total Bilirubin (0.2-1.3) mg/dL AST (14-36) U/L ALT (4-34) U/L Alkaline Phosphatase (38-126) U/L Total Protein (6.3-8.2) g/dL Albumin (3.5-5.0) g/dL Lipase (23-300) U/L Urine Color Light Red Urine Appearance Cloudy H (Clear) Urine pH 7.5 (5.0-8.0) Ur Specific [place] 1.005 (1.001-1.035) Urine Protein 2+ H (Negative) Urine Glucose (UA) Negative (Negative) Urine Ketones Negative (Negative) Urine Blood Large H (Negative) Urine Nitrite Negative (Negative) Urine Bilirubin Negative (Negative) Urine Urobilinogen <2.0 (<2.0) mg/dL Ur Leukocyte Esterase Large H (Negative) Urine RBC 30 H (0-5) /hpf Urine WBC 53 H (0-5) /hpf Urine WBC Clumps Occasional H (None) /hpf Ur Squamous Epith Cells 4 (0-4) /hpf Urine Bacteria Rare H (None) /hpf Urine Mucus Rare H (None) /hpf Urine HCG, Qual (Not Detectd) Coronavirus (PCR) Not Detected (Not Detectd) 09/27/21 Range/Units 08:17 WBC (3.8-10.6) k/uL RBC (3.80-5.40) m/uL Hgb (11.4-16.0) gm/dL Hct (34.0-46.0) % MCV (80.0-100.0) fL MCH (25.0-35.0) pg MCHC (31.0-37.0) g/dL RDW (11.5-15.5) % Plt Count (150-450) k/uL MPV Neutrophils % % Lymphocytes % % Monocytes % % Eosinophils % % Basophils % % Neutrophils # (1.3-7.7) k/uL Lymphocytes # (1.0-4.8) k/uL Monocytes # (0-1.0) k/uL Eosinophils # (0-0.7) k/uL Basophils # (0-0.2) k/uL PT (9.0-12.0) sec INR (<1.2) APTT (22.0-30.0) sec Sodium (137-145) mmol/L Potassium (3.5-5.1) mmol/L Chloride (98-107) mmol/L Carbon Dioxide (22-30) mmol/L Anion Gap mmol/L BUN (7-17) mg/dL Creatinine (0.52-1.04) mg/dL Est GFR (CKD-EPI)AfAm (>60 ml/min/1.73 sqM) Est GFR (CKD-EPI)NonAf (>60 ml/min/1.73 sqM) Glucose (74-99) mg/dL Plasma Lactic Acid Jose A (0.7-2.0) mmol/L Calcium (8.4-10.2) mg/dL Total Bilirubin (0.2-1.3) mg/dL AST (14-36) U/L ALT (4-34) U/L Alkaline Phosphatase (38-126) U/L Total Protein (6.3-8.2) g/dL Albumin (3.5-5.0) g/dL Lipase (23-300) U/L Urine Color Urine Appearance (Clear) Urine pH (5.0-8.0) Ur Specific [place] (1.001-1.035) Urine Protein (Negative) Urine Glucose (UA) (Negative) Urine Ketones (Negative) Urine Blood (Negative) Urine Nitrite (Negative) Urine Bilirubin (Negative) Urine Urobilinogen (<2.0) mg/dL Ur Leukocyte Esterase (Negative) Urine RBC (0-5) /hpf Urine WBC (0-5) /hpf Urine WBC Clumps (None) /hpf Ur Squamous Epith Cells (0-4) /hpf Urine Bacteria (None) /hpf Urine Mucus (None) /hpf Urine HCG, Qual Not Detected (Not Detectd) Coronavirus (PCR) (Not Detectd) Disposition Clinical Impression: Abdominal pain Disposition: HOME SELF-CARE Condition: Good Instructions (If sedation given, give patient instructions): Abdominal Pain (ED), Urinary Tract Infection in Women (ED) Prescriptions: Cephalexin [Keflex] 500 mg PO Q12HR #20 cap Ondansetron Odt [Zofran Odt] 4 mg PO Q8HR PRN #10 tab PRN Reason: Vomiting Is patient prescribed a controlled substance at d/c from ED?: No Referrals: Reyes Watson DO [Primary Care Provider] - 1-2 days Time of Disposition: 08:30
[2021-09-27 07:38] LABS: Partial Thromboplastin Time 25.1 sec (22.0-30.0); Prothrombin Time 10.6 sec (9.0-12.0)
[2021-09-27 07:43] LABS: AST 23 U/L (14-36); Alkaline Phosphatase 42 U/L (38-126); Potassium 3.7 mmol/L (3.5-5.1)
[2021-09-27 08:31] LABS: Appearance,Urine Cloudy (Clear); Bacteria,Urine Rare /hpf; Bilirubin,Urine Negative (Negative); Blood,Urine Large (Negative); Color,Urine Light Red; Glucose,Urine (UA) Negative (Negative); Ketones,Urine Negative (Negative); Leukocyte Esterase,Urine Large (Negative); Mucus,Urine Rare /hpf; Nitrite,Urine Negative (Negative); PH, Urine 7.5 (5.0-8.0); Protein,Urine 2+ (Negative); RBC,Urine 30 /hpf (0-5); Specific Gravity,Urine 1.005 (1.001-1.035); Squamous Epithelial Cell,Urine 4 /hpf (0-4); Urobilinogen,Urine <2.0 mg/dL (<2.0); WBC,Urine 53 /hpf (0-5)
[2021-09-27 09:05] VITALS: BP 105/66; PULSE 82; RESP 16; TEMP 98.7
--- NOTE | 2021-09-27 14:19 | P.GSCN ---
History of Present Illness Consult date: 09/27/21 History of present illness: 21-year-old female presents to the emergency room department after being discharged from the hospital yesterday. She recently underwent a exploratory laparotomy and reduction of internal hernia. She states that she was feeling fine when she was at home, however did have chicken nuggets for dinner and began having on and off nausea overnight. She states that the nausea was getting worse and she began having an anxiety attack and became extremely concerned about her midline incision. She states that after calling EMS, Zofran was given in the vehicle and she began having significant relief of the nausea and states her anxiety calmed down and her abdominal pain improved. In the emergency department, laboratory values were evaluated without any significant abnormalities noted. She states that with Zofran on board, she was having a significant amount of relief of nausea. She states that she believes she had significant anxiety that brought her to the emergency room due to her recent emergent surgical laparotomy. Currently, she states she is feeling much better and would like to be discharged home. She is requesting home with antiemetic medication. She denies any current significant abdominal pain. She states that she has been having flatus and did have a bowel movement prior to coming to the emergency department. She has no additional complaints at this time. Denies any fevers, chills, chest pain or shortness of breath. Review of Systems All systems: negative Past Medical History Additional Past Medical History / Comment(s): IBS, orthostatic hypertension, borderline diabetic. History of Any Multi-Drug Resistant Organisms: None Reported Past Surgical History: Adenoidectomy, Tonsillectomy Additional Past Surgical History / Comment(s): Endometriosis laproscopic surgery on 09/19/21. Past Anesthesia/Blood Transfusion Reactions: No Reported Reaction Past Psychological History: Anxiety, PTSD Smoking Status: Current every day smoker, Vaper Past Alcohol Use History: None Reported, Occasional Past Drug Use History: Marijuana Medications and Allergies Home Medications Medication Instructions Recorded Confirmed Type Ibuprofen [Motrin] 600 mg PO Q6HR PRN #30 tab 09/19/21 09/27/21 Rx Cephalexin [Keflex] 500 mg PO Q12HR #20 cap 09/27/21 Rx HYDROcodone/APAP 5-325MG [[place] 1 tab PO Q6HR PRN 09/27/21 09/27/21 History 5-325] Ondansetron Odt [Zofran Odt] 4 mg PO Q8HR PRN #10 tab 09/27/21 Rx Allergies Allergy/AdvReac Type Severity Reaction Status Date / Time amoxicillin Allergy Rash/Hives Verified 09/27/21 07:34 Penicillins Allergy Rash/Hives Verified 09/27/21 07:34 morphine AdvReac Rapid Verified 09/27/21 07:34 Heart Rate Surgical - Exam Osteopathic Statement: *. No significant issues noted on an osteopathic structural exam other than those noted in the History and Physical/Consult. Vital Signs Temp Pulse Resp BP Pulse Ox 99.6 F 85 16 122/71 98 09/27/21 06:48 09/27/21 06:48 09/27/21 06:48 09/27/21 06:48 09/27/21 06:48 - General well nourished, no distress - Neck trachea midline - Respiratory normal respiratory effort - Abdomen Midline incision clean, dry and intact with karson in place, nondistended, no rebound, no guarding Abdomen: soft, non tender - Neurologic normal coordination, normal sensation - Psychiatric oriented to time, oriented to person, oriented to place Results - Labs 09/27/21 06:56 09/27/21 06:56 Abnormal Lab Results - Last 24 Hours (Table) 09/27/21 09/27/21 09/27/21 Range/Units 06:56 06:56 08:17 RBC 3.69 L (3.80-5.40) m/uL Hct 33.1 L (34.0-46.0) % Chloride 112 H (98-107) mmol/L Albumin 3.4 L (3.5-5.0) g/dL Urine Appearance Cloudy H (Clear) Urine Protein 2+ H (Negative) Urine Blood Large H (Negative) Ur Leukocyte Esterase Large H (Negative) Urine RBC 30 H (0-5) /hpf Urine WBC 53 H (0-5) /hpf Urine WBC Clumps Occasional H (None) /hpf Urine Bacteria Rare H (None) /hpf Urine Mucus Rare H (None) /hpf Diabetes panel 09/27/21 Range/Units 06:56 Sodium 141 (137-145) mmol/L Potassium 3.7 (3.5-5.1) mmol/L Chloride 112 H (98-107) mmol/L Carbon Dioxide 25 (22-30) mmol/L BUN 7 (7-17) mg/dL Creatinine 0.56 (0.52-1.04) mg/dL Glucose 94 (74-99) mg/dL Calcium 9.0 (8.4-10.2) mg/dL AST 23 (14-36) U/L ALT 12 (4-34) U/L Alkaline Phosphatase 42 (38-126) U/L Total Protein 6.3 (6.3-8.2) g/dL Albumin 3.4 L (3.5-5.0) g/dL Calcium panel 09/27/21 Range/Units 06:56 Calcium 9.0 (8.4-10.2) mg/dL Albumin 3.4 L (3.5-5.0) g/dL Pituitary panel 09/27/21 Range/Units 06:56 Sodium 141 (137-145) mmol/L Potassium 3.7 (3.5-5.1) mmol/L Chloride 112 H (98-107) mmol/L Carbon Dioxide 25 (22-30) mmol/L BUN 7 (7-17) mg/dL Creatinine 0.56 (0.52-1.04) mg/dL Glucose 94 (74-99) mg/dL Calcium 9.0 (8.4-10.2) mg/dL Adrenal panel 09/27/21 Range/Units 06:56 Sodium 141 (137-145) mmol/L Potassium 3.7 (3.5-5.1) mmol/L Chloride 112 H (98-107) mmol/L Carbon Dioxide 25 (22-30) mmol/L BUN 7 (7-17) mg/dL Creatinine 0.56 (0.52-1.04) mg/dL Glucose 94 (74-99) mg/dL Calcium 9.0 (8.4-10.2) mg/dL Total Bilirubin 0.6 (0.2-1.3) mg/dL AST 23 (14-36) U/L ALT 12 (4-34) U/L Alkaline Phosphatase 42 (38-126) U/L Total Protein 6.3 (6.3-8.2) g/dL Albumin 3.4 L (3.5-5.0) g/dL Assessment and Plan Plan: 21-year-old female presents to the emergency department with nausea episodes after being discharged from the hospital approximately 24 hours previously. She has had significant relief with antiemetic. Diet was discussed in depth with the patient as she may not have tolerated the chicken nuggets dinner that she had a previous night. I did recommend soft and light foods that are easily digestible. I did recommend avoiding anything greasy or fried or fatty at this time. She will be discharged with antiemetics. She will be discharged based on her request to go home. She was offered 24-hour observation. The patient states that she strongly believes it was more anxiety driven rather than any abdominal issue at this time. I did recommend that the patient return to the emergency department should there be any other significant issues. Patient is agreeable with this plan.
== END 2021-09-27 09:18 | disposition home or self-care (01) ==
LOC: EC 06:47
DX: R10.84 Generalized abdominal pain (principal); Z20.822 Contact with and (suspected) exposure to COVID-19; F17.290 Nicotine dependence, other tobacco product, uncomplicated; F12.90 Cannabis use, unspecified, uncomplicated; Z79.1 Long term (current) use of non-steroidal anti-inflammatories (NSAID); Z79.899 Other long term (current) drug therapy
CPT/HCPCS: 99284; 96374; 96361; 36415; 80053; 83605; 83690; 85025; 85610; 85730; 81001; 81025; 87086; 87635; J1170

== ENCOUNTER 2022-01-29 23:26 | Emergency (ER) | payer OTHER ==
[2022-01-29 23:56] VITALS: BP 110/66; PULSE 102; RESP 22; TEMP 98.7
[2022-01-30] MEDS ORDERED: SODIUM CHLORIDE 0.9% 1,000 ML IV ONE (00:55)
[2022-01-30] MEDS ORDERED: ONDANSETRON 4 MG/2 ML VIAL IVP STA (00:55)
[2022-01-30] MEDS ORDERED: ACETAMINOPHEN TAB 325 MG TAB PO STA (00:56)
[2022-01-30 00:57] LABS: Appearance,Urine Clear (Clear); Bilirubin,Urine Negative (Negative); Blood,Urine Negative (Negative); Color,Urine Colorless; Glucose,Urine (UA) Negative (Negative); Ketones,Urine Negative (Negative); Leukocyte Esterase,Urine Negative (Negative); Nitrite,Urine Negative (Negative); PH, Urine 6.5 (5.0-8.0); Protein,Urine Negative (Negative); Specific Gravity,Urine 1.005 (1.001-1.035); Urobilinogen,Urine <2.0 mg/dL (<2.0)
--- NOTE | 2022-01-30 01:01 | ED ---
General Adult HPI - General Chief complaint: Dizziness Stated complaint: Pain All over, Dizzy, Headache, SoB, 6 weeks preg Time Seen by Provider: 01/30/22 00:50 Source: patient, RN notes reviewed, old records reviewed Mode of arrival: ambulatory Limitations: no limitations - History of Present Illness Initial comments: This is an nontoxic-appearing 21-year-old female that presents with 2 hours of generalized malaise, body aches and dizziness. Patient states that it came on suddenly. She is 6 weeks but denies any dysuria, vaginal bleeding or abdominal pain. She has her first appointment with an TRAVEL RN February 15. This is her first . She does have a history of orthostatic hypertension, irritable bowel syndrome. She had surgery for endometriosis in August of this year, suffered a punctured bowel and had a resection. She is half pack-a-day smoker. Takes vitamins daily. No other medications daily. -: hour(s) (2) Severity scale (1-10): 3 Quality: aching Consistency: constant Improves with: none Associated Symptoms: malaise, nausea/vomiting, other (dizzy) Treatments Prior to Arrival: none - Related Data Home Medications Medication Instructions Recorded Confirmed HYDROcodone/APAP 5-325MG [[place] 1 tab PO Q6HR PRN 09/27/21 09/27/21 5-325] Previous Rx's Medication Instructions Recorded Ibuprofen [Motrin] 600 mg PO Q6HR PRN #30 tab 09/19/21 Cephalexin [Keflex] 500 mg PO Q12HR #20 cap 09/27/21 Ondansetron Odt [Zofran Odt] 4 mg PO Q8HR PRN #10 tab 09/27/21 Allergies Allergy/AdvReac Type Severity Reaction Status Date / Time adhesive tape Allergy Rash/Hives Verified 01/29/22 23:56 amoxicillin Allergy Rash/Hives Verified 01/29/22 23:56 Penicillins Allergy Rash/Hives Verified 01/29/22 23:56 morphine AdvReac Rapid Verified 01/29/22 23:56 Heart Rate Patient : Yes Number of weeks : 6 Review of Systems ROS Statement: Those systems with pertinent positive or pertinent negative responses have been documented in the HPI. ROS Other: All systems not noted in ROS Statement are negative. Past Medical History Past Medical History: No Reported History Additional Past Medical History / Comment(s): IBS, orthostatic hypertension, borderline diabetic. History of Any Multi-Drug Resistant Organisms: None Reported Past Surgical History: Adenoidectomy, Tonsillectomy Additional Past Surgical History / Comment(s): Endometriosis laproscopic surgery on 09/19/21. Past Anesthesia/Blood Transfusion Reactions: No Reported Reaction Past Psychological History: Anxiety, PTSD Smoking Status: Current every day smoker, Vaper Past Alcohol Use History: None Reported, Occasional Past Drug Use History: Marijuana General Exam Limitations: no limitations General appearance: alert, in no apparent distress Head exam: Present: atraumatic, normocephalic, normal inspection Eye exam: Present: normal appearance, EOMI. Absent: scleral icterus, conjunctival injection ENT exam: Present: normal oropharynx, mucous membranes moist Neck exam: Present: normal inspection, full ROM. Absent: tenderness, meningismus Respiratory exam: Present: normal lung sounds bilaterally. Absent: respiratory distress, accessory muscle use Cardiovascular Exam: Present: tachycardia GI/Abdominal exam: Present: soft. Absent: distended, tenderness, rigid Extremities exam: Present: normal inspection, normal capillary refill. Absent: pedal edema Back exam: Present: normal inspection, full ROM. Absent: tenderness, CVA tenderness (R), CVA tenderness (L), rash noted Neurological exam: Present: alert, oriented X3 Psychiatric exam: Present: normal affect, normal mood Skin exam: Present: warm, dry, normal color. Absent: cyanosis, diaphoretic, petechiae, pallor Course Vital Signs 01/29/22 23:53 Temperature 98.7 F Pulse Rate 102 H Respiratory 22 Rate Blood Pressure 110/66 O2 Sat by Pulse 97 Oximetry Medical Decision Making - Medical Decision Making Patient presents with a sudden onset of nausea, generalized body aches and dizziness 2 hours prior to arrival. Symptoms are consistent with viral illness. Patient is 6 weeks . She denies any vaginal bleeding or abdominal pain. Abdomen is soft and nontender. Vital signs are stable. Urinalysis is clear, no evidence of infection. Influenza and coronavirus swabs are negative. Patient instructed to return if any new or concerning symptoms. Take Tylenol for any pain. I also advised her to take Benadryl for Zofran as needed for any nausea. Keep her appointment with her TRAVEL RN as scheduled. Case discussed with Dr. Reyna. - Lab Data Lab Results 01/30/22 01/30/22 01/30/22 Range/Units 00:44 00:44 00:44 Urine Color Colorless Urine Appearance Clear (Clear) Urine pH 6.5 (5.0-8.0) Ur Specific [place] 1.005 (1.001-1.035) Urine Protein Negative (Negative) Urine Glucose (UA) Negative (Negative) Urine Ketones Negative (Negative) Urine Blood Negative (Negative) Urine Nitrite Negative (Negative) Urine Bilirubin Negative (Negative) Urine Urobilinogen <2.0 (<2.0) mg/dL Ur Leukocyte Esterase Negative (Negative) Coronavirus (PCR) Not Detected (Not Detectd) Influenza Type A RNA Not Detected (Not Detectd) Influenza Type B (PCR) Not Detected (Not Detectd) Disposition Clinical Impression: Nausea, Body aches, Dizziness Disposition: HOME SELF-CARE Condition: Good Instructions (If sedation given, give patient instructions): Nausea and Vomiting in (ED), Dizziness (ED) Additional Instructions: Your symptoms today are consistent with a viral illness. Increase your fluid intake, take Tylenol as needed for any body aches or pains. Take Benadryl or Zofran as needed for any nausea. Follow-up with the primary care doctor next week. Return to the emergency room with any new or concerning symptoms. Is patient prescribed a controlled substance at d/c from ED?: No Referrals: Reyes Watson DO [Primary Care Provider] - 1-2 days Time of Disposition: 02:06
[2022-01-30] MEDS ORDERED: ONDANSETRON 4 MG ODT STARTER PACK 2 TAB BTL PO STA (02:06)
== END 2022-01-30 02:30 | disposition home or self-care (01) ==
LOC: EC 23:26
DX: O21.9 Vomiting of pregnancy, unspecified (principal); O26.891 Other specified pregnancy related conditions, first trimester; R42 Dizziness and giddiness; R52 Pain, unspecified; Z20.822 Contact with and (suspected) exposure to COVID-19; O99.331 Smoking (tobacco) complicating pregnancy, first trimester; F17.290 Nicotine dependence, other tobacco product, uncomplicated; O99.321 Drug use complicating pregnancy, first trimester; F12.90 Cannabis use, unspecified, uncomplicated; Z3A.01 Less than 8 weeks gestation of pregnancy; Z88.0 Allergy status to penicillin; Z88.5 Allergy status to narcotic agent
CPT/HCPCS: 93005; 81003; 87502; 87635; 99284; 96374; 96361; J2405; S0119

== ENCOUNTER 2022-03-05 13:25 | Emergency (ER) | payer OTHER ==
[2022-03-05 13:35] VITALS: PULSE 64
[2022-03-05] MEDS ORDERED: SODIUM CHLORIDE 0.9% 2,000 ML IV ONE (13:46)
[2022-03-05] MEDS ORDERED: METOCLOPRAMIDE 5 MG/ML 2 ML VIAL IVP STA (13:46)
[2022-03-05] MEDS ORDERED: ACETAMINOPHEN TAB 500 MG TAB PO STA (13:47)
[2022-03-05 14:31] LABS: Basophils % (A) 0 %; Eosinophils % (A) 0 %; HCT 33.5 % (34.0-46.0); Lymphocytes # (A) 0.2 k/uL (1.0-4.8); Lymphocytes % (A) 2 %; MCH 31.1 pg (25.0-35.0); MCHC 35.8 g/dL (31.0-37.0); MCV 86.9 fL (80.0-100.0); Mean Platelet Volume 8.4; Monocytes # (A) 0.3 k/uL (0-1.0); Monocytes % (A) 4 %; Neutrophils # (A) 6.3 k/uL (1.3-7.7); Neutrophils % (A) 93 %; Platelet Count 148 k/uL (150-450); RBC 3.86 m/uL (3.80-5.40); RDW 12.4 % (11.5-15.5); WBC 6.7 k/uL (3.8-10.6)
--- NOTE | 2022-03-05 14:32 | ED ---
Fever HPI - General Chief Complaint: Fever Stated Complaint: Covid systoms Time Seen by Provider: 03/05/22 13:33 Source: patient, EMS, RN notes reviewed Mode of arrival: EMS Limitations: no limitations - History of Present Illness Initial Comments: This a 21-year-old female sent emergency Department chief complaint of fever, generalized does not feel well. Patient states she's had nausea and episodes of vomiting she states she is recent exposed COVID-19. Patient is 10 weeks denies any abdominal complaints of vaginal bleeding or vaginal dis charge. She is currently seen [facility] out of [place]. She denies any chest pain shortness of breath. She does admit that she feels that her body is burning, severe body aches. She has not taken any Tylenol. - Related Data Home Medications Medication Instructions Recorded Confirmed HYDROcodone/APAP 5-325MG [Nipomo 1 tab PO Q6HR PRN 09/27/21 09/27/21 5-325] Previous Rx's Medication Instructions Recorded Ibuprofen [Motrin] 600 mg PO Q6HR PRN #30 tab 09/19/21 Cephalexin [Keflex] 500 mg PO Q12HR #20 cap 09/27/21 Ondansetron Odt [Zofran Odt] 4 mg PO Q8HR PRN #10 tab 09/27/21 Allergies Allergy/AdvReac Type Severity Reaction Status Date / Time adhesive tape Allergy Rash/Hives Verified 02/23/22 11:28 amoxicillin Allergy Rash/Hives Verified 02/23/22 11:28 Penicillins Allergy Rash/Hives Verified 02/23/22 11:28 morphine AdvReac Rapid Verified 02/23/22 11:28 Heart Rate Review of Systems ROS Statement: Those systems with pertinent positive or pertinent negative responses have been documented in the HPI. ROS Other: All systems not noted in ROS Statement are negative. Past Medical History Past Medical History: No Reported History Additional Past Medical History / Comment(s): IBS, orthostatic hypertension, borderline diabetic,endometreosis History of Any Multi-Drug Resistant Organisms: None Reported Past Surgical History: Adenoidectomy, Tonsillectomy Additional Past Surgical History / Comment(s): Endometriosis laproscopic surgery on 09/19/21. Past Anesthesia/Blood Transfusion Reactions: No Reported Reaction Past Psychological History: Anxiety, PTSD Smoking Status: Current every day smoker, Vaper Past Alcohol Use History: None Reported, Occasional Past Drug Use History: Marijuana General Exam Limitations: no limitations General appearance: alert, in no apparent distress Head exam: Present: atraumatic, normocephalic, normal inspection Eye exam: Present: normal appearance, PERRL, EOMI. Absent: scleral icterus, conjunctival injection, periorbital swelling ENT exam: Present: normal exam, normal oropharynx, mucous membranes moist Neck exam: Present: normal inspection, full ROM. Absent: tenderness, meningismus, lymphadenopathy Respiratory exam: Present: normal lung sounds bilaterally. Absent: respiratory distress, wheezes, rales, rhonchi, stridor Cardiovascular Exam: Present: regular rate, normal rhythm, normal heart sounds. Absent: systolic murmur, diastolic murmur, rubs, gallop, clicks GI/Abdominal exam: Present: soft, normal bowel sounds. Absent: distended, tenderness, guarding, rebound, rigid Course Vital Signs 03/05/22 13:30 Temperature 100.9 F H Pulse Rate 64 Respiratory 18 Rate Blood Pressure 115/65 Medical Decision Making - Medical Decision Making Patient will receive monoclonal antibodies. Patient will be discharged in stable condition return parameters discussed. - Lab Data Result diagrams: 03/05/22 14:22 03/05/22 14:22 Lab Results 03/05/22 03/05/22 03/05/22 Range/Units 14:22 14:22 14:22 WBC 6.7 (3.8-10.6) k/uL RBC 3.86 (3.80-5.40) m/uL Hgb 12.0 (11.4-16.0) gm/dL Hct 33.5 L (34.0-46.0) % MCV 86.9 (80.0-100.0) fL MCH 31.1 (25.0-35.0) pg MCHC 35.8 (31.0-37.0) g/dL RDW 12.4 (11.5-15.5) % Plt Count 148 L (150-450) k/uL MPV 8.4 Neutrophils % 93 % Lymphocytes % 2 % Monocytes % 4 % Eosinophils % 0 % Basophils % 0 % Neutrophils # 6.3 (1.3-7.7) k/uL Lymphocytes # 0.2 L (1.0-4.8) k/uL Monocytes # 0.3 (0-1.0) k/uL Eosinophils # 0.0 (0-0.7) k/uL Basophils # 0.0 (0-0.2) k/uL Sodium 132 L (137-145) mmol/L Potassium 3.6 (3.5-5.1) mmol/L Chloride 104 (98-107) mmol/L Carbon Dioxide 24 (22-30) mmol/L Anion Gap 4 mmol/L BUN 5 L (7-17) mg/dL Creatinine 0.37 L (0.52-1.04) mg/dL Est GFR (CKD-EPI)AfAm >90 (>60 ml/min/1.73 sqM) Est GFR (CKD-EPI)NonAf >90 (>60 ml/min/1.73 sqM) Glucose 84 (74-99) mg/dL Calcium 8.5 (8.4-10.2) mg/dL Coronavirus (PCR) (Not Detectd) Influenza Type A RNA Not Detected (Not Detectd) Influenza Type B (PCR) Not Detected (Not Detectd) 03/05/22 Range/Units 14:22 WBC (3.8-10.6) k/uL RBC (3.80-5.40) m/uL Hgb (11.4-16.0) gm/dL Hct (34.0-46.0) % MCV (80.0-100.0) fL MCH (25.0-35.0) pg MCHC (31.0-37.0) g/dL RDW (11.5-15.5) % Plt Count (150-450) k/uL MPV Neutrophils % % Lymphocytes % % Monocytes % % Eosinophils % % Basophils % % Neutrophils # (1.3-7.7) k/uL Lymphocytes # (1.0-4.8) k/uL Monocytes # (0-1.0) k/uL Eosinophils # (0-0.7) k/uL Basophils # (0-0.2) k/uL Sodium (137-145) mmol/L Potassium (3.5-5.1) mmol/L Chloride (98-107) mmol/L Carbon Dioxide (22-30) mmol/L Anion Gap mmol/L BUN (7-17) mg/dL Creatinine (0.52-1.04) mg/dL Est GFR (CKD-EPI)AfAm (>60 ml/min/1.73 sqM) Est GFR (CKD-EPI)NonAf (>60 ml/min/1.73 sqM) Glucose (74-99) mg/dL Calcium (8.4-10.2) mg/dL Coronavirus (PCR) Detected A (Not Detectd) Influenza Type A RNA (Not Detectd) Influenza Type B (PCR) (Not Detectd) Disposition Clinical Impression: COVID-19 Disposition: HOME SELF-CARE Condition: Stable Instructions (If sedation given, give patient instructions): COVID-19 (Coronavirus Disease 2019) (ED) Additional Instructions: Please return to the Emergency Department if symptoms worsen or any other concerns. Is patient prescribed a controlled substance at d/c from ED?: No Referrals: Reyes Watson DO [Primary Care Provider] - 1-2 days Time of Disposition: 14:57
[2022-03-05 14:49] LABS: African American GFR (CKD) >90 (>60 ml/min/1.73 sqM); Anion Gap 4 mmol/L; Blood Urea Nitrogen 5 mg/dL (7-17); Calcium 8.5 mg/dL (8.4-10.2); Carbon Dioxide 24 mmol/L (22-30); Chloride 104 mmol/L (98-107); Glucose 84 mg/dL (74-99); Non-African American GFR(CKD) >90 (>60 ml/min/1.73 sqM); Potassium 3.6 mmol/L (3.5-5.1); Sodium 132 mmol/L (137-145)
[2022-03-05] MEDS ORDERED: diphenhydrAMINE 50 MG/ML 1 ML VIAL IVP STA (14:53)
[2022-03-05] MEDS ORDERED: BEBTELOVIMAB (EUA) 175 MG/2 ML VIAL IV ONE (15:15)
[2022-03-05 16:16] VITALS: BP 96/53; RESP 16; TEMP 99
== END 2022-03-05 16:16 | disposition home or self-care (01) ==
LOC: EC 13:25
DX: O98.511 Other viral diseases complicating pregnancy, first trimester (principal); U07.1 COVID-19; F17.209 Nicotine dependence, unspecified, with unspecified nicotine-induced disorders; Z88.0 Allergy status to penicillin; Z91.048 Other nonmedicinal substance allergy status; Z88.6 Allergy status to analgesic agent
CPT/HCPCS: 99284; 96374; 96375; 96361; 36415; 80048; 85025; 87502; 87635; J1200; J2765; Q0222

== ENCOUNTER 2022-03-09 13:12 | Emergency (ER) | payer OTHER ==
[2022-03-09] MEDS ORDERED: ONDANSETRON 4 MG/2 ML VIAL IVP STA (13:50)
[2022-03-09] MEDS ORDERED: SODIUM CHLORIDE 0.9% 1,000 ML IV ONE (13:51)
[2022-03-09 14:33] LABS: Basophils % (A) 0 %; Eosinophils % (A) 0 %; HCT 39.6 % (34.0-46.0); HGB 13.4 gm/dL (11.4-16.0); Lymphocytes # (A) 1.8 k/uL (1.0-4.8); Lymphocytes % (A) 17 %; MCH 29.3 pg (25.0-35.0); MCHC 33.8 g/dL (31.0-37.0); MCV 86.8 fL (80.0-100.0); Mean Platelet Volume 8.5; Monocytes # (A) 0.4 k/uL (0-1.0); Monocytes % (A) 4 %; Neutrophils # (A) 8.6 k/uL (1.3-7.7); Neutrophils % (A) 78 %; Platelet Count 186 k/uL (150-450); RBC 4.56 m/uL (3.80-5.40); RDW 12.4 % (11.5-15.5)
[2022-03-09 15:12] LABS: ALT 21 U/L (4-34); AST 34 U/L (14-36); African American GFR (CKD) >90 (>60 ml/min/1.73 sqM); Albumin 4.1 g/dL (3.5-5.0); Alkaline Phosphatase 46 U/L (38-126); Anion Gap 7 mmol/L; Blood Urea Nitrogen 8 mg/dL (7-17); Calcium 8.9 mg/dL (8.4-10.2); Carbon Dioxide 23 mmol/L (22-30); Chloride 104 mmol/L (98-107); Glucose 82 mg/dL (74-99); Non-African American GFR(CKD) >90 (>60 ml/min/1.73 sqM); Sodium 134 mmol/L (137-145); Total Bilirubin 0.6 mg/dL (0.2-1.3); Total Protein 7.1 g/dL (6.3-8.2)
[2022-03-09 15:14] LABS: Potassium 4.2 mmol/L (3.5-5.1)
--- NOTE | 2022-03-09 15:23 | US ---
EXAMINATION TYPE: Transabdominal DATE OF EXAM: 03/09/2022 3:03 PM COMPARISON: NONE CLINICAL HISTORY: Pelvic pain 11 weeks . N/V x 3 weeks, has recently gotten worse. EXAM PERFORMED: Transabdominal (TA) EXAM MEASUREMENTS: GESTATIONAL AGE / DATING Physician Established: 09/27/22 (11 weeks/1 days) EDC: 09/27/22 Dates by LMP: LMP unknown Dates by First Scan: No previous this is first scan Dates by Current Scan for: (11 weeks/2 days) EDC: 09/26/22 MATERNAL ANATOMY Uterus: 10.1 x 10.0 x 8.3 cm Right Ovary: Not vis. Left Ovary: 3.2 x 2.1 x 3.0 cm Post CDS / Adnexa: WNL Presence of free fluid: No Presence of corpus luteal cyst: No Presence of subchorionic bleed: No GESTATION / SURVEY CRL: 4.5 cm (11 weeks/2 days) Yolk Sac (normal less than 6mm): 2.3 mm Heart Rate: 161 bpm Rhythm: Normal IUP: Viable IUP Nuchal Translucency 10-14wks (normal less than 3mm): 1.6 mm Age Appropriate Anatomy Cord Insertion: Visualized Limbs: Visualized Calvarium: Visualized Date of LMP: Unknown Beta HcG (if available): N/A IMPRESSION: Single live intrauterine gestation with ultrasound age of 11 weeks and 2 days.
--- NOTE | 2022-03-09 15:27 | ED ---
Abdominal Pain HPI - General Chief Complaint: Abdominal Pain Stated Complaint: Abd Pain/Vomiting Time Seen by Provider: 03/09/22 13:35 Source: patient, EMS Mode of arrival: EMS Limitations: no limitations - History of Present Illness Initial Comments: Patient is a 21-year-old female currently 11 weeks presenting with chief complaint of nausea and vomiting. Patient states that she has not been able to keep down anything for the last 2 days without the use of Zofran. Patient states that today she ran out of Zofran. She also admits to pelvic pain, patient states that she has regularly had this pain even prior to ever since her endometriosis surgery. Patient tested positive for Covid on 03/05, states that at that time she had chills and bodyaches but those symptoms have improved since receiving antibodies. She denies vaginal bleeding, chest pain, shortness of breath, fever, chills, diarrhea, hematochezia, melena, dysuria, hematuria, urgency, frequency, URI-like symptoms. Patient was seen at [facility] in [place], she states she is in the process of trying to switch to Dr. Moore. Patient states she attempted to take vitamins, however they made her throw up and she is going to try the "gummy" vitamins. - Related Data Previous Rx's Medication Instructions Recorded Ondansetron Odt [Zofran Odt] 4 mg PO Q8HR PRN #20 tab 03/09/22 Allergies Allergy/AdvReac Type Severity Reaction Status Date / Time adhesive tape Allergy Rash/Hives Verified 03/09/22 15:21 amoxicillin Allergy Rash/Hives Verified 03/09/22 15:21 Penicillins Allergy Rash/Hives Verified 03/09/22 15:21 morphine AdvReac Rapid Verified 03/09/22 15:21 Heart Rate Review of Systems ROS Statement: Those systems with pertinent positive or pertinent negative responses have been documented in the HPI. ROS Other: All systems not noted in ROS Statement are negative. Past Medical History Past Medical History: No Reported History Additional Past Medical History / Comment(s): IBS, orthostatic hypertension, borderline diabetic,endometreosis History of Any Multi-Drug Resistant Organisms: None Reported Past Surgical History: Adenoidectomy, Tonsillectomy Additional Past Surgical History / Comment(s): Endometriosis laproscopic surgery on 09/19/21. Past Anesthesia/Blood Transfusion Reactions: No Reported Reaction Past Psychological History: Anxiety, Depression, PTSD Smoking Status: Current every day smoker, Vaper Past Alcohol Use History: None Reported Past Drug Use History: Marijuana General Exam Limitations: no limitations General appearance: alert, in no apparent distress Head exam: Present: atraumatic, normocephalic, normal inspection Eye exam: Present: normal appearance, EOMI. Absent: scleral icterus, periorbital swelling Neck exam: Present: normal inspection Respiratory exam: Present: normal lung sounds bilaterally. Absent: respiratory distress, wheezes, rales, rhonchi, stridor Cardiovascular Exam: Present: regular rate, normal rhythm, normal heart sounds. Absent: systolic murmur, diastolic murmur, rubs, gallop, clicks GI/Abdominal exam: Present: soft. Absent: distended, tenderness, guarding, rebound, rigid Neurological exam: Present: alert, oriented X3, CN II-XII intact Psychiatric exam: Present: normal affect, normal mood Skin exam: Present: warm, dry, intact, normal color. Absent: rash Course Vital Signs 03/09/22 13:15 Temperature 98.0 F Pulse Rate 78 Respiratory 18 Rate Blood Pressure 104/71 O2 Sat by Pulse 98 Oximetry Medical Decision Making - Medical Decision Making Patient is a 21-year-old female currently 11 weeks presenting with chief complaint of nausea and vomiting. Patient states that she has with nausea and vomiting throughout the first trimester, states that she ran out of Zofran today. She is also complaining of some pelvic pain. Examination is unremarkable. WBC 11.0, likely reactive. Sodium 134, likely a result of vo miting. ultrasound shows single live intrauterine gestation with ultrasound age of 11 weeks and 2 days. Heart rate of 161. On reassessment after fluids and Zofran patient reports feeling much better. She appears stable for discharge with outpatient follow-up at this time. Follow-up with [facility] on Saturday. I stressed the importance of vitamins, patient conveyed verbal understanding and stated that she would be getting a different brand to try. Report back to ER with any new or worsening symptoms. Discussed return parameters and answered all questions. Patient conveyed verbal understanding and agreed to the plan. I discussed this case with my attending Dr. Noyola. - Lab Data Result diagrams: 03/09/22 14:12 03/09/22 14:12 Lab Results 03/09/22 03/09/22 Range/Units 14:12 14:12 WBC 11.0 H (3.8-10.6) k/uL RBC 4.56 (3.80-5.40) m/uL Hgb 13.4 (11.4-16.0) gm/dL Hct 39.6 (34.0-46.0) % MCV 86.8 (80.0-100.0) fL MCH 29.3 (25.0-35.0) pg MCHC 33.8 (31.0-37.0) g/dL RDW 12.4 (11.5-15.5) % Plt Count 186 (150-450) k/uL MPV 8.5 Neutrophils % 78 % Lymphocytes % 17 % Monocytes % 4 % Eosinophils % 0 % Basophils % 0 % Neutrophils # 8.6 H (1.3-7.7) k/uL Lymphocytes # 1.8 (1.0-4.8) k/uL Monocytes # 0.4 (0-1.0) k/uL Eosinophils # 0.0 (0-0.7) k/uL Basophils # 0.0 (0-0.2) k/uL Sodium 134 L (137-145) mmol/L Potassium 4.2 (3.5-5.1) mmol/L Chloride 104 (98-107) mmol/L Carbon Dioxide 23 (22-30) mmol/L Anion Gap 7 mmol/L BUN 8 (7-17) mg/dL Creatinine 0.40 L (0.52-1.04) mg/dL Est GFR (CKD-EPI)AfAm >90 (>60 ml/min/1.73 sqM) Est GFR (CKD-EPI)NonAf >90 (>60 ml/min/1.73 sqM) Glucose 82 (74-99) mg/dL Calcium 8.9 (8.4-10.2) mg/dL Total Bilirubin 0.6 (0.2-1.3) mg/dL AST 34 (14-36) U/L ALT 21 (4-34) U/L Alkaline Phosphatase 46 (38-126) U/L Total Protein 7.1 (6.3-8.2) g/dL Albumin 4.1 (3.5-5.0) g/dL Disposition Clinical Impression: Nausea/vomiting in Disposition: HOME SELF-CARE Condition: Good Instructions (If sedation given, give patient instructions): Nausea and Vomiting in (ED) Additional Instructions: Follow-up with [facility] on Saturday. Take vitamins. Report back to ER with any new or worsening symptoms take medication as prescribed. Prescriptions: Ondansetron Odt [Zofran Odt] 4 mg PO Q8HR PRN #20 tab PRN Reason: Nausea Is patient prescribed a controlled substance at d/c from ED?: No Referrals: Reyes Watson DO [Primary Care Provider] - 1-2 days Rose Marie Moore DO [Doctor of Osteopathic Medicine] - 1-2 days Time of Disposition: 15:39
[2022-03-09 15:52] VITALS: BP 99/54; PULSE 63; RESP 16; TEMP 98
== END 2022-03-09 15:51 | disposition home or self-care (01) ==
LOC: EC 13:12
DX: O21.9 Vomiting of pregnancy, unspecified (principal); F17.209 Nicotine dependence, unspecified, with unspecified nicotine-induced disorders; Z88.0 Allergy status to penicillin; Z91.048 Other nonmedicinal substance allergy status; Z88.6 Allergy status to analgesic agent; Z3A.11 11 weeks gestation of pregnancy
CPT/HCPCS: 36415; 80053; 85025; 84702; 76813; 76801; 99284; 96374; 96361; J2405

== ENCOUNTER 2022-03-16 14:27 | Emergency (ER) | payer OTHER ==
[2022-03-16 15:00] VITALS: TEMP 98.3
[2022-03-16] MEDS ORDERED: SODIUM CHLORIDE 0.9% 1,000 ML IV STA (16:09)
[2022-03-16] MEDS ORDERED: ACETAMINOPHEN IV (For NPO) 1,000 MG in EMPTY BAG 1 BAG IVPB STA (16:09)
[2022-03-16] MEDS ORDERED: METOCLOPRAMIDE 5 MG/ML 2 ML VIAL IVP STA (16:09)
--- NOTE | 2022-03-16 16:15 | ED ---
Female Urogenital HPI - General Chief complaint: Vaginal Bleeding Stated complaint: Vaginal bleeding,abd pain-12 weeks preg Time Seen by Provider: 03/16/22 15:01 Source: patient, RN notes reviewed Mode of arrival: ambulatory Limitations: no limitations - History of Present Illness Initial comments: This is a 21-year-old female who presents to the emergency Department with right-sided pelvic pain and vaginal spotting. States that this began early this morning. She has also started to develop nausea and vomiting. She is approximately [address] Moore. This is her first . She has not had any vaginal bleeding in this thus far. US on 03/09 did confirm a viable IUP. Denies any fevers, chills, sore throat, cough, dyspnea, chest pain, palpitations, diarrhea, back pain, or headaches. MD Complaint: vaginal bleeding, pelvic pain Patient : Yes Number of weeks : 12 Associated Symptoms: nausea/vomiting - Related Data Previous Rx's Medication Instructions Recorded Ondansetron Odt [Zofran Odt] 4 mg PO Q8HR PRN #20 tab 03/09/22 Cephalexin [Keflex] 500 mg PO Q8HR 3 Days #9 cap 03/16/22 Allergies Allergy/AdvReac Type Severity Reaction Status Date / Time adhesive tape Allergy Rash/Hives Verified 03/16/22 15:00 amoxicillin Allergy Rash/Hives Verified 03/16/22 15:00 Penicillins Allergy Rash/Hives Verified 03/16/22 15:00 morphine AdvReac Rapid Verified 03/16/22 15:00 Heart Rate Review of Systems ROS Statement: Those systems with pertinent positive or pertinent negative responses have been documented in the HPI. ROS Other: All systems not noted in ROS Statement are negative. Past Medical History Past Medical History: Asthma Additional Past Medical History / Comment(s): IBS, orthostatic hypertension, borderline diabetic,endometreosis History of Any Multi-Drug Resistant Organisms: None Reported Past Surgical History: Adenoidectomy, Tonsillectomy Additional Past Surgical History / Comment(s): Endometriosis laproscopic surgery on 09/19/21. Past Anesthesia/Blood Transfusion Reactions: No Reported Reaction Past Psychological History: Anxiety, Depression, PTSD Smoking Status: Current every day smoker, Vaper Past Alcohol Use History: None Reported Past Drug Use History: Marijuana General Exam Limitations: no limitations General appearance: alert, in distress Head exam: Present: atraumatic, normocephalic, normal inspection Respiratory exam: Present: normal lung sounds bilaterally. Absent: respiratory distress, wheezes, rales, rhonchi, stridor Cardiovascular Exam: Present: regular rate, normal rhythm, normal heart sounds. Absent: systolic murmur, diastolic murmur, rubs, gallop, clicks GI/Abdominal exam: Present: normal bowel sounds Neurological exam: Present: alert, oriented X3, CN II-XII intact Psychiatric exam: Present: normal affect, normal mood Skin exam: Present: warm, dry, intact, normal color. Absent: rash Course Vital Signs 03/16/22 14:58 Temperature 98.3 F Pulse Rate 95 Respiratory 20 Rate Blood Pressure 110/67 O2 Sat by Pulse 98 Oximetry Medical Decision Making - Medical Decision Making This is a 21-year-old female who presents to the emergency department for vaginal bleeding and pelvic pain. She is 12 weeks . She was treated with IV fluids, Reglan, and Ofirmev. Ofirmev was administered, as the patient is and cannot take NSAIDs. She is also actively vomiting and is unable to tolerate oral intake. Lab work was nonactionable. Ultrasound revealed a viable intrauterine . No clear cause for the bleeding was identified. Patient is Rh negative, RhoGAM was administered. Advised [id number] vitamin B6 and Unisom for nausea and vomiting. She will continue to take her vitamins and follow-up with Dr. Moore as instructed. There is noted to be few bacteria in the urine, will treat the patient with a 3 day course of Keflex for asymptomatic bacteriuria. Return precautions reviewed in depth, the patient is instructed to return to the emergency department with any new, worsening, or concerning symptoms. Patient verbalized understanding. This case was discussed in detail with the attending ED physician. Presentation, findings, and treatment plan discussed in detail as well. - Lab Data Result diagrams: 03/16/22 16:40 03/16/22 16:40 Lab Results 03/16/22 03/16/22 03/16/22 Range/Units 16:40 16:40 17:12 WBC 12.5 H (3.8-10.6) k/uL RBC 4.41 (3.80-5.40) m/uL Hgb 12.9 (11.4-16.0) gm/dL Hct 38.4 (34.0-46.0) % MCV 86.9 (80.0-100.0) fL MCH 29.2 (25.0-35.0) pg MCHC 33.6 (31.0-37.0) g/dL RDW 12.3 (11.5-15.5) % Plt Count 221 (150-450) k/uL MPV 8.7 Neutrophils % 77 % Lymphocytes % 17 % Monocytes % 5 % Eosinophils % 0 % Basophils % 0 % Neutrophils # 9.6 H (1.3-7.7) k/uL Lymphocytes # 2.1 (1.0-4.8) k/uL Monocytes # 0.6 (0-1.0) k/uL Eosinophils # 0.0 (0-0.7) k/uL Basophils # 0.0 (0-0.2) k/uL Sodium 137 (137-145) mmol/L Potassium 3.6 (3.5-5.1) mmol/L Chloride 106 (98-107) mmol/L Carbon Dioxide 24 (22-30) mmol/L Anion Gap 7 mmol/L BUN 4 L (7-17) mg/dL Creatinine 0.42 L (0.52-1.04) mg/dL Est GFR (CKD-EPI)AfAm >90 (>60 ml/min/1.73 sqM) Est GFR (CKD-EPI)NonAf >90 (>60 ml/min/1.73 sqM) Glucose 76 (74-99) mg/dL Calcium 9.4 (8.4-10.2) mg/dL Total Bilirubin 0.3 (0.2-1.3) mg/dL AST 15 (14-36) U/L ALT 10 (4-34) U/L Alkaline Phosphatase 53 (38-126) U/L Total Protein 7.3 (6.3-8.2) g/dL Albumin 4.2 (3.5-5.0) g/dL HCG, Quant 79863.5 mIU/mL Urine Color Yellow Urine Appearance Clear (Clear) Urine pH 5.5 (5.0-8.0) Ur Specific Keller 1.017 (1.001-1.035) Urine Protein Negative (Negative) Urine Glucose (UA) Negative (Negative) Urine Ketones Trace H (Negative) Urine Blood Small H (Negative) Urine Nitrite Negative (Negative) Urine Bilirubin Negative (Negative) Urine Urobilinogen <2.0 (<2.0) mg/dL Ur Leukocyte Esterase Negative (Negative) Urine RBC 18 H (0-5) /hpf Urine WBC 4 (0-5) /hpf Ur Squamous Epith Cells 3 (0-4) /hpf Urine Bacteria Rare H (None) /hpf Hyaline Casts 1 (0-2) /lpf Urine Mucus Occasional H (None) /hpf - Radiology Data Radiology results: report reviewed, image reviewed Disposition Clinical Impression: Vaginal bleeding in Disposition: HOME SELF-CARE Instructions (If sedation given, give patient instructions): at 11 to 14 Weeks (ED) Additional Instructions: Return to the emergency department with any new, worsening, or concerning symptoms. Take over the counter vitamin B6 and Unisom for nausea and vomiting. Take the Keflex as prescribed for 3 days. Follow up with Dr. Moore. Is patient prescribed a controlled substance at d/c from ED?: No Referrals: Reyes Watson DO [Primary Care Provider] - 1-2 days
[2022-03-16 17:01] LABS: Basophils % (A) 0 %; Eosinophils % (A) 0 %; HCT 38.4 % (34.0-46.0); HGB 12.9 gm/dL (11.4-16.0); Lymphocytes # (A) 2.1 k/uL (1.0-4.8); Lymphocytes % (A) 17 %; MCH 29.2 pg (25.0-35.0); MCHC 33.6 g/dL (31.0-37.0); MCV 86.9 fL (80.0-100.0); Mean Platelet Volume 8.7; Monocytes # (A) 0.6 k/uL (0-1.0); Monocytes % (A) 5 %; Neutrophils # (A) 9.6 k/uL (1.3-7.7); Neutrophils % (A) 77 %; Platelet Count 221 k/uL (150-450); RBC 4.41 m/uL (3.80-5.40); RDW 12.3 % (11.5-15.5); WBC 12.5 k/uL (3.8-10.6)
[2022-03-16 17:13] LABS: ALT 10 U/L (4-34); AST 15 U/L (14-36); African American GFR (CKD) >90 (>60 ml/min/1.73 sqM); Albumin 4.2 g/dL (3.5-5.0); Alkaline Phosphatase 53 U/L (38-126); Anion Gap 7 mmol/L; Blood Urea Nitrogen 4 mg/dL (7-17); Calcium 9.4 mg/dL (8.4-10.2); Carbon Dioxide 24 mmol/L (22-30); Chloride 106 mmol/L (98-107); Glucose 76 mg/dL (74-99); Non-African American GFR(CKD) >90 (>60 ml/min/1.73 sqM); Potassium 3.6 mmol/L (3.5-5.1); Sodium 137 mmol/L (137-145); Total Bilirubin 0.3 mg/dL (0.2-1.3); Total Protein 7.3 g/dL (6.3-8.2)
--- NOTE | 2022-03-16 17:18 | US ---
EXAMINATION TYPE: Transabdominal DATE OF EXAM: 03/16/2022 5:07 PM COMPARISON: 03/09/2022 CLINICAL HISTORY: Pelvic pain and bleeding in . more cramping and spotting today, G1 EXAM PERFORMED: OBTA EXAM MEASUREMENTS: GESTATIONAL AGE / DATING Physician Established: (12 weeks/1 days) EDC: 09/27/2022 Dates by LMP: LMP unknown Dates by First Scan: (12 weeks/2 days) EDC: 09/26/2022 Dates by Current Scan for: (12 weeks/5 days) EDC: 09/23/2022 MATERNAL ANATOMY Uterus: 11.8 x 11.6 x 9.7cm Right Ovary: 3.0 x 1.7 x 1.1cm Left Ovary: 3.4 x 2.7 x 2.4cm Post CDS / Adnexa: wnl Presence of free fluid: no Presence of corpus luteal cyst: yes - left = 2.6cm Presence of subchorionic bleed: no GESTATION / SURVEY CRL: 6.3cm (12 weeks/5 days) MSD: wnl Yolk Sac (normal less than 6mm): not seen Heart Rate: 156 bpm Rhythm: Normal IUP: Viable IUP Age Appropriate Anatomy Cord Insertion: Visualized Limbs: Visualized Calvarium: Visualized Date of LMP: unknown Beta HcG (if available): not available IMPRESSION: The ultrasound gestational age is 12 weeks and 5 days. There is satisfactory growth compared to recen t exam.
[2022-03-16 17:30] LABS: Appearance,Urine Clear (Clear); Bacteria,Urine Rare /hpf; Bilirubin,Urine Negative (Negative); Blood,Urine Small (Negative); Color,Urine Yellow; Glucose,Urine (UA) Negative (Negative); Hyaline Casts,Urine 1 /lpf (0-2); Ketones,Urine Trace (Negative); Leukocyte Esterase,Urine Negative (Negative); Mucus,Urine Occasional /hpf; Nitrite,Urine Negative (Negative); PH, Urine 5.5 (5.0-8.0); Protein,Urine Negative (Negative); RBC,Urine 18 /hpf (0-5); Specific Gravity,Urine 1.017 (1.001-1.035); Squamous Epithelial Cell,Urine 3 /hpf (0-4); Urobilinogen,Urine <2.0 mg/dL (<2.0); WBC,Urine 4 /hpf (0-5)
[2022-03-16] MEDS ORDERED: Rhogam IMMUNE GLOBULIN 1,500 UNIT/1 ML IM ONE (17:37)
[2022-03-16 18:09] LABS: HCG,Quantitative Serum 97969.5 mIU/mL
[2022-03-16 20:10] VITALS: BP 103/56; PULSE 75; RESP 18
== END 2022-03-16 20:16 | disposition home or self-care (01) ==
LOC: EC 14:27
DX: O20.9 Hemorrhage in early pregnancy, unspecified (principal); O99.331 Smoking (tobacco) complicating pregnancy, first trimester; O99.511 Diseases of the respiratory system complicating pregnancy, first trimester; O26.891 Other specified pregnancy related conditions, first trimester; R10.2 Pelvic and perineal pain; F17.290 Nicotine dependence, other tobacco product, uncomplicated; J45.909 Unspecified asthma, uncomplicated; Z91.09 Other allergy status, other than to drugs and biological substances; Z88.0 Allergy status to penicillin; Z88.1 Allergy status to other antibiotic agents; Z88.5 Allergy status to narcotic agent; Z3A.12 12 weeks gestation of pregnancy
CPT/HCPCS: 36415; 86900; 86901; 80053; 85025; 86850; 81001; 84702; 76801; 99284; 96365; 96361; 96372; J2790; J2765; J0131

== ENCOUNTER 2022-03-24 07:48 | Emergency (ER) | payer OTHER ==
[2022-03-24 07:51] VITALS: RESP 18; TEMP 98
[2022-03-24] MEDS ORDERED: SODIUM CHLORIDE 0.9% 1,000 ML IV ONE (08:23)
[2022-03-24] MEDS ORDERED: METOCLOPRAMIDE 5 MG/ML 2 ML VIAL IVP STA (08:24)
[2022-03-24] MEDS ORDERED: diphenhydrAMINE 50 MG/ML 1 ML VIAL IVP STA (08:24)
--- NOTE | 2022-03-24 08:33 | ED ---
General Adult HPI - General Chief complaint: Abdominal Pain Stated complaint: Vomiting Time Seen by Provider: 03/24/22 07:52 Source: patient, RN notes reviewed Mode of arrival: ambulatory Limitations: no limitations - History of Present Illness Initial comments: 21-year-old female presents to the for a chief complaint of nausea vomiting and constipation. Patient is a female currently 13 weeks . Patient states she has been constipated with last bowel movement being 1 week ago. Patient saw her SPECIAL PROCEDURES NURSE last week who recommended starting Colace but patient failed to do so and presented today to the emergency room for this issue. Flip randall has also had nausea vomiting which has been stable throughout her . Also complaining of abdominal pain that she thinks is related to her constipation. She does not have any vaginal bleeding.Patient has no other complaints at this time including shortness of breath, chest pain, headache, or visual changes. - Related Data Previous Rx's Medication Instructions Recorded Ondansetron Odt [Zofran Odt] 4 mg PO Q8HR PRN #20 tab 03/09/22 Cephalexin [Keflex] 500 mg PO Q8HR 3 Days #9 cap 03/16/22 Allergies Allergy/AdvReac Type Severity Reaction Status Date / Time adhesive tape Allergy Rash/Hives Verified 03/24/22 07:51 amoxicillin Allergy Rash/Hives Verified 03/24/22 07:51 Penicillins Allergy Rash/Hives Verified 03/24/22 07:51 morphine AdvReac Rapid Verified 03/24/22 07:51 Heart Rate Review of Systems ROS Statement: Those systems with pertinent positive or pertinent negative responses have been documented in the HPI. ROS Other: All systems not noted in ROS Statement are negative. Past Medical History Past Medical History: Asthma Additional Past Medical History / Comment(s): IBS, orthostatic hypertension, borderline diabetic,endometreosis History of Any Multi-Drug Resistant Organisms: None Reported Past Surgical History: Adenoidectomy, Tonsillectomy Additional Past Surgical History / Comment(s): Endometriosis laproscopic surgery on 09/19/21. Past Anesthesia/Blood Transfusion Reactions: No Reported Reaction Past Psychological History: Anxiety, Depression, PTSD Smoking Status: Current every day smoker, Vaper Past Alcohol Use History: None Reported Past Drug Use History: Marijuana General Exam Limitations: no limitations General appearance: alert, in no apparent distress Head exam: Present: atraumatic Eye exam: Present: normal appearance, PERRL, EOMI. Absent: scleral icterus, conjunctival injection ENT exam: Present: normal exam, mucous membranes moist Neck exam: Present: normal inspection, full ROM. Absent: tenderness Respiratory exam: Present: normal lung sounds bilaterally. Absent: respiratory distress, wheezes Cardiovascular Exam: Present: regular rate, normal rhythm, normal heart sounds GI/Abdominal exam: Present: soft, normal bowel sounds. Absent: distended, tenderness Neurological exam: Present: alert Course Vital Signs 03/24/22 07:49 Temperature 98.0 F Pulse Rate 94 Respiratory 18 Rate Blood Pressure 100/65 O2 Sat by Pulse 98 Oximetry Medical Decision Making - Medical Decision Making vitals are stable. CBC unremarkable. CMP does show some evidence of dehydration, given a liter of fluids. Patient tolerating oral intake in the emergency room after Reglan. ultrasound was obtained which showed a single uterine gestation estimated at 13 weeks. Patient was given enema for constipation, had significant improvement in symptoms after large bowel movement. She has Zofran for nausea which is currently controlled. At this time patient is stable for discharge home. She will take her stool softener as directed by her SPECIAL PROCEDURES NURSE. She will return here for any worsening symptoms. - Lab Data Result diagrams: 03/24/22 08:15 03/24/22 08:15 Lab Results 03/24/22 03/24/22 03/24/22 Range/Units 08:15 08:15 09:00 WBC 10.0 (3.8-10.6) k/uL RBC 4.35 (3.80-5.40) m/uL Hgb 13.0 (11.4-16.0) gm/dL Hct 37.9 (34.0-46.0) % MCV 87.0 (80.0-100.0) fL MCH 29.9 (25.0-35.0) pg MCHC 34.4 (31.0-37.0) g/dL RDW 12.4 (11.5-15.5) % Plt Count 180 (150-450) k/uL MPV 8.7 Neutrophils % 73 % Lymphocytes % 21 % Monocytes % 5 % Eosinophils % 1 % Basophils % 0 % Neutrophils # 7.2 (1.3-7.7) k/uL Lymphocytes # 2.1 (1.0-4.8) k/uL Monocytes # 0.5 (0-1.0) k/uL Eosinophils # 0.1 (0-0.7) k/uL Basophils # 0.0 (0-0.2) k/uL Sodium 137 (137-145) mmol/L Potassium 4.1 (3.5-5.1) mmol/L Chloride 108 H (98-107) mmol/L Carbon Dioxide 21 L (22-30) mmol/L Anion Gap 8 mmol/L BUN 9 (7-17) mg/dL Creatinine 0.48 L (0.52-1.04) mg/dL Est GFR (CKD-EPI)AfAm >90 (>60 ml/min/1.73 sqM) Est GFR (CKD-EPI)NonAf >90 (>60 ml/min/1.73 sqM) Glucose 92 (74-99) mg/dL Calcium 8.9 (8.4-10.2) mg/dL Total Bilirubin 0.4 (0.2-1.3) mg/dL AST 26 (14-36) U/L ALT 14 (4-34) U/L Alkaline Phosphatase 44 (38-126) U/L Total Protein 7.4 (6.3-8.2) g/dL Albumin 4.2 (3.5-5.0) g/dL Urine Color Light Yellow Urine Appearance Clear (Clear) Urine pH 6.5 (5.0-8.0) Ur Specific [place] 1.011 (1.001-1.035) Urine Protein Negative (Negative) Urine Glucose (UA) Negative (Negative) Urine Ketones Negative (Negative) Urine Blood Negative (Negative) Urine Nitrite Negative (Negative) Urine Bilirubin Negative (Negative) Urine Urobilinogen <2.0 (<2.0) mg/dL Ur Leukocyte Esterase Negative (Negative) Disposition Clinical Impression: Abdominal pain, Constipation, Nausea & vomiting Disposition: HOME SELF-CARE Condition: Good Instructions (If sedation given, give patient instructions): Abdominal Pain in (ED) Additional Instructions: Please take medications as directed by your SPECIAL PROCEDURES NURSE. Return to the emergency room for any worsening symptoms. Is patient prescribed a controlled substance at d/c from ED?: No Referrals: Reyes Watson DO [Primary Care Provider] - 1-2 days Time of Disposition: 10:36
[2022-03-24 08:41] LABS: Basophils % (A) 0 %; Eosinophils # (A) 0.1 k/uL (0-0.7); Eosinophils % (A) 1 %; HCT 37.9 % (34.0-46.0); Lymphocytes # (A) 2.1 k/uL (1.0-4.8); Lymphocytes % (A) 21 %; MCH 29.9 pg (25.0-35.0); MCHC 34.4 g/dL (31.0-37.0); Mean Platelet Volume 8.7; Monocytes # (A) 0.5 k/uL (0-1.0); Monocytes % (A) 5 %; Neutrophils # (A) 7.2 k/uL (1.3-7.7); Neutrophils % (A) 73 %; Platelet Count 180 k/uL (150-450); RBC 4.35 m/uL (3.80-5.40); RDW 12.4 % (11.5-15.5)
[2022-03-24 08:53] LABS: ALT 14 U/L (4-34); African American GFR (CKD) >90 (>60 ml/min/1.73 sqM); Albumin 4.2 g/dL (3.5-5.0); Anion Gap 8 mmol/L; Blood Urea Nitrogen 9 mg/dL (7-17); Calcium 8.9 mg/dL (8.4-10.2); Carbon Dioxide 21 mmol/L (22-30); Chloride 108 mmol/L (98-107); Glucose 92 mg/dL (74-99); Non-African American GFR(CKD) >90 (>60 ml/min/1.73 sqM); Sodium 137 mmol/L (137-145); Total Bilirubin 0.4 mg/dL (0.2-1.3); Total Protein 7.4 g/dL (6.3-8.2)
[2022-03-24 09:02] LABS: Potassium 4.1 mmol/L (3.5-5.1)
[2022-03-24 09:03] LABS: AST 26 U/L (14-36); Alkaline Phosphatase 44 U/L (38-126)
[2022-03-24 09:07] LABS: Appearance,Urine Clear (Clear); Bilirubin,Urine Negative (Negative); Blood,Urine Negative (Negative); Color,Urine Light Yellow; Glucose,Urine (UA) Negative (Negative); Ketones,Urine Negative (Negative); Leukocyte Esterase,Urine Negative (Negative); Nitrite,Urine Negative (Negative); PH, Urine 6.5 (5.0-8.0); Protein,Urine Negative (Negative); Specific Gravity,Urine 1.011 (1.001-1.035); Urobilinogen,Urine <2.0 mg/dL (<2.0)
--- NOTE | 2022-03-24 09:57 | US ---
EXAMINATION TYPE: Transabdominal DATE OF EXAM: 03/24/2022 9:35 AM COMPARISON: NONE CLINICAL HISTORY: pain. EXAM PERFORMED: EXAM MEASUREMENTS: GESTATIONAL AGE / DATING Physician Established: (13 weeks/2 days) EDC: 09-27-22 Dates by LMP: LMP unknown Dates by First Scan: (13 weeks/3 days) EDC: 09-26-22 Dates by Current Scan for: (13 weeks/2 days) EDC: 09-27-22 MATERNAL ANATOMY Uterus: 14.6 x 9.0 x 9.3cm Right Ovary: 1.9 x 1.3 x 1.2cm Left Ovary: 2.1 x 1.9 x 2.1cm Post CDS / Adnexa: wnl Presence of free fluid: no GESTATION / SURVEY CRL: (13 weeks/ days) Yolk Sac (normal less than 6mm): not seen Heart Rate: 155 bpm Rhythm: Normal IUP: Viable IUP Age Appropriate Anatomy Cord Insertion: Visualized Limbs: Visualized Calvarium: Visualized Date of LMP: ukwn Beta HcG (if available): Not available at this time IMPRESSION: 1. Single intrauterine gestation estimated at 13 weeks 2 days gestation based on current ultrasound m easurements. Cardiac activity measures 155 bpm.
[2022-03-24 10:48] VITALS: BP 105/68; PULSE 78
== END 2022-03-24 10:48 | disposition home or self-care (01) ==
LOC: EC 07:48
DX: O21.9 Vomiting of pregnancy, unspecified (principal); J45.909 Unspecified asthma, uncomplicated; F17.209 Nicotine dependence, unspecified, with unspecified nicotine-induced disorders; Z88.0 Allergy status to penicillin; Z91.048 Other nonmedicinal substance allergy status; Z88.6 Allergy status to analgesic agent; Z3A.13 13 weeks gestation of pregnancy
CPT/HCPCS: 36415; 80053; 85025; 81003; 76801; 99284; 96374; 96375; 96361; J1200; J2765

== ENCOUNTER 2022-06-04 06:06 | Outpatient (CLI) | payer OTHER ==
[2022-06-04 07:34] VITALS: BP 123/59; PULSE 87; RESP 20; TEMP 97.7
--- NOTE | 2022-06-21 11:05 | P.MSEPDOC ---
Presenting Problems - Arrival Data Date of Arrival on Unit: 06/04/22 Time of Arrival on Unit: 06:06 Mode of Transport: Wheelchair - Complaint OB-Reason for Admission/Chief Complaint: Pain Comment: right sided back pain Medical History - Information : 1 Para: 0 Term: 0 : 0 Abortions: Spontaneous or Elective: 0 Number of Living Children: 0 - Gestational Age Gestational Age by RAMON (wks/days): 23 Weeks and 4 Days - History Complications: Smoker, Hx. Substance Abuse Comment: THC Review of Systems - Review of Systems Constitutional: No problems Breast: No problems ENT: No problems Cardiovascular: No problems Respiratory: No problems Gastrointestinal: No problems Genitourinary: No problems Musculoskeletal: No problems Neurological: No problems Skin: No problems Vital Signs - Temperature Temperature: 97.7 F Temperature Source: Temporal Artery Scan - Pulse Right Pulse Rate: 87 Pulse Assessment Method: Pulse Oximetry - Respirations Respiratory Rate: 20 Oxygen Delivery Method: Room Air O2 Sat by Pulse Oximetry: 97 - Blood Pressure Right Arm Blood Pressure: 123/59 Blood Pressure Mean: 80 Blood Pressure Source: Automatic Cuff Physician Notification - Physician Notified Physician Notified Date: 06/04/22 Physician Notified Time: 06:06 Physician: Rose Marie Moore New Order Received: Yes - Notification Comment Comment: reported on pts c/o back pain x16 hrs, no urinary s/sx, no cardiac or resp s/sx. vitals stable. abd soft and non tender. no swelling, bruising, redness noted on back, but back is tender to palpation. orders to d/c home, encouraged follow up in er Maternal Triage Index - Maternal Triage Index Presenting for scheduled procedure w/no complaint: No - Stat/Priority 1 Stat Priority 1: No - Urgent/Priority 2 Urgent Priority 2: No - Prompt/Priority 3 Prompt Priority 3: No - Non-Urgent/Priority 4 Non-Urgent Priority 4: Yes Criteria Met for Priority 4: 23+4, back pain - Scheduled/Requesting Priority 5 Scheduled/Requesting Priority 5: No Disposition - Disposition OB Disposition: Discharge to home Discharge Date: 06/04/22 Discharge Time: 06:40 I agree with the RN Medical Screening Exam: Yes Case reviewed; plan agreed upon as documented in EMR&OBIX.: Yes Diagnosis: LOW BACK PAIN, UNSPECIFIED
== END 2022-06-04 06:40 | disposition home or self-care (01) ==
LOC: FBPOP 06:06
PROVIDERS: ATTEND Obstetrics & Gynecology
DX: O26.92 Pregnancy related conditions, unspecified, second trimester (principal); Z3A.23 23 weeks gestation of pregnancy; Z88.0 Allergy status to penicillin; Z88.5 Allergy status to narcotic agent; Z91.048 Other nonmedicinal substance allergy status; F17.200 Nicotine dependence, unspecified, uncomplicated
CPT/HCPCS: 99213

== ENCOUNTER 2022-06-04 06:45 | Emergency (ER) | payer OTHER ==
[2022-06-04] MEDS ORDERED: SODIUM CHLORIDE 0.9% 500 ML 500 ML IV STA (07:07)
[2022-06-04] MEDS ORDERED: SODIUM CHLORIDE 0.9% 1,000 ML IV STA (07:07)
[2022-06-04] MEDS ORDERED: ACETAMINOPHEN IV (For NPO) 1,000 MG in EMPTY BAG 1 BAG IVPB STA (07:12)
[2022-06-04 07:46] LABS: Basophils % (A) 0 %; Eosinophils # (A) 0.1 k/uL (0-0.7); Eosinophils % (A) 1 %; HCT 31.5 % (34.0-46.0); HGB 11.5 gm/dL (11.4-16.0); Lymphocytes % (A) 17 %; MCH 31.2 pg (25.0-35.0); MCHC 36.5 g/dL (31.0-37.0); MCV 85.5 fL (80.0-100.0); Mean Platelet Volume 8.4; Monocytes # (A) 0.6 k/uL (0-1.0); Monocytes % (A) 5 %; Neutrophils # (A) 9.3 k/uL (1.3-7.7); Neutrophils % (A) 76 %; Platelet Count 240 k/uL (150-450); RBC 3.68 m/uL (3.80-5.40); RDW 12.7 % (11.5-15.5); WBC 12.2 k/uL (3.8-10.6)
--- NOTE | 2022-06-04 07:57 | US ---
EXAMINATION TYPE: US abdomen limited DATE OF EXAM: 06/04/2022 COMPARISON: CT abdomen and pelvis 09/22/2021. CLINICAL HISTORY: pain right flank. Right flank pain. Patient is 23 weeks . TECHNIQUE: Multiple sonographic images of the right upper quadrant are obtained. 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 Pancreas: Limited, no abnormalities seen. Liver: Appears wnl . No cystic or solid lesions. No intrahepatic ductal dilatation. Gallbladder: Appears anechoic. No pericholecystic fluid, shadowing calculi, or wall thickening. Evidence for sonographic Carrera's sign: No CBD: Appears wnl Right Kidney: Appears slightly enlarged. Hydronephrosis seen. Two hyperechoic foci seen within mid an d lower pole. Mid: 0.7 x 0.6 x 0.5 cm. Lower: 0.7 x 0.6 x 0.7 cm. IMPRESSION: 1. Mild right hydronephrosis which may related to obstructive ureteral calculus versus physiologic i n . 2. Nonobstructive right renal calculi.
[2022-06-04 08:01] LABS: ALT 22 U/L (4-34); AST 23 U/L (14-36); African American GFR (CKD) >90 (>60 ml/min/1.73 sqM); Albumin 3.9 g/dL (3.5-5.0); Alkaline Phosphatase 75 U/L (38-126); Anion Gap 9 mmol/L; Blood Urea Nitrogen 13 mg/dL (7-17); Calcium 9.9 mg/dL (8.4-10.2); Carbon Dioxide 23 mmol/L (22-30); Chloride 104 mmol/L (98-107); Glucose 86 mg/dL (74-99); Lipase 89 U/L (23-300); Non-African American GFR(CKD) >90 (>60 ml/min/1.73 sqM); Potassium 4.4 mmol/L (3.5-5.1); Sodium 136 mmol/L (137-145); Total Bilirubin 0.4 mg/dL (0.2-1.3); Total Protein 6.8 g/dL (6.3-8.2)
[2022-06-04 08:12] VITALS: RESP 18
[2022-06-04] MEDS ORDERED: LIDOCAINE 5% PATCH TOPICAL SCH (09:00)
[2022-06-04 09:31] LABS: Appearance,Urine Clear (Clear); Bilirubin,Urine Negative (Negative); Blood,Urine Negative (Negative); Color,Urine Colorless; Glucose,Urine (UA) Negative (Negative); Ketones,Urine Negative (Negative); Leukocyte Esterase,Urine Negative (Negative); Nitrite,Urine Negative (Negative); PH, Urine 6.5 (5.0-8.0); Protein,Urine Negative (Negative); Specific Gravity,Urine 1.008 (1.001-1.035); Urobilinogen,Urine <2.0 mg/dL (<2.0)
--- NOTE | 2022-06-04 10:04 | ED ---
General Adult HPI - General Chief complaint: Back Pain/Injury Stated complaint: Back pain Time Seen by Provider: 06/04/22 06:50 Source: patient, RN notes reviewed Mode of arrival: wheelchair Limitations: no limitations - History of Present Illness Initial comments: 22-year-old female presents emergency Department chief complaint of right-sided back pain. Patient states that symptoms started over the last couple days. Patient states that she was evaluated by OB upstairs and was clear sent him here. Patient's pain is worse with movement. Patient denies dysuria no history kidney stones denies any nausea vomiting. Patient denies any fevers or chills no lower abdominal cramping no abdominal pain. Patient states that her back worse with movement. - Related Data Home Medications Medication Instructions Recorded Confirmed Vit No.179/Iron/Folic 1 each PO DAILY 06/04/22 06/04/22 [ Tablet] Previous Rx's Medication Instructions Recorded Lidocaine 5% Patch [Lidoderm 5% 1 patch TOPICAL DAILY #10 patch 06/04/22 Patch] Allergies Allergy/AdvReac Type Severity Reaction Status Date / Time adhesive tape Allergy Rash/Hives Verified 06/04/22 06:52 amoxicillin Allergy Rash/Hives Verified 06/04/22 06:52 Penicillins Allergy Rash/Hives Verified 06/04/22 06:52 morphine AdvReac Rapid Verified 06/04/22 06:52 Heart Rate Review of Systems ROS Statement: Those systems with pertinent positive or pertinent negative responses have been documented in the HPI. ROS Other: All systems not noted in ROS Statement are negative. Past Medical History Past Medical History: Asthma Additional Past Medical History / Comment(s): IBS, orthostatic hypertension, borderline diabetic,endometreosis History of Any Multi-Drug Resistant Organisms: None Reported Past Surgical History: Adenoidectomy, Tonsillectomy Additional Past Surgical History / Comment(s): Endometriosis laproscopic surgery on 09/19/21. Past Anesthesia/Blood Transfusion Reactions: No Reported Reaction Past Psychological History: Anxiety, Depression, PTSD Smoking Status: Current every day smoker, Vaper Past Alcohol Use History: None Reported Past Drug Use History: Marijuana General Exam Limitations: no limitations General appearance: alert, in no apparent distress Head exam: Present: atraumatic, normocephalic, normal inspection Eye exam: Present: normal appearance, PERRL, EOMI. Absent: scleral icterus, conjunctival injection, periorbital swelling Neck exam: Present: normal inspection, full ROM. Absent: tenderness, meningismus, lymphadenopathy Respiratory exam: Present: normal lung sounds bilaterally. Absent: respiratory distress, wheezes, rales, rhonchi, stridor Cardiovascular Exam: Present: regular rate, normal rhythm, normal heart sounds. Absent: systolic murmur, diastolic murmur, rubs, gallop, clicks GI/Abdominal exam: Present: soft, normal bowel sounds. Absent: distended, tenderness, guarding, rebound, rigid Back exam: Present: full ROM, tenderness, CVA tenderness (R), paraspinal tenderness. Absent: muscle spasm Neurological exam: Present: alert Course Vital Signs 06/04/22 06/04/22 06:47 08:11 Temperature 98.3 F Pulse Rate 85 74 Respiratory 16 18 Rate Blood Pressure 126/73 111/60 O2 Sat by Pulse 97 98 Oximetry Medical Decision Making - Medical Decision Making Patient for including labs, ultrasound. Patient does have physiological hydronephrosis on the right patient has no hematuria, no evidence of urinary tract infection. Patient was given my exam rashes for greatly improved. Patient continued Tylenol will follow-up with urology and return parameters were discussed. - Lab Data Result diagrams: 06/04/22 07:35 06/04/22 07:35 Lab Results 06/04/22 06/04/22 06/04/22 Range/Units 07:35 07:35 08:52 WBC 12.2 H (3.8-10.6) k/uL RBC 3.68 L (3.80-5.40) m/uL Hgb 11.5 (11.4-16.0) gm/dL Hct 31.5 L (34.0-46.0) % MCV 85.5 (80.0-100.0) fL MCH 31.2 (25.0-35.0) pg MCHC 36.5 (31.0-37.0) g/dL RDW 12.7 (11.5-15.5) % Plt Count 240 (150-450) k/uL MPV 8.4 Neutrophils % 76 % Lymphocytes % 17 % Monocytes % 5 % Eosinophils % 1 % Basophils % 0 % Neutrophils # 9.3 H (1.3-7.7) k/uL Lymphocytes # 2.0 (1.0-4.8) k/uL Monocytes # 0.6 (0-1.0) k/uL Eosinophils # 0.1 (0-0.7) k/uL Basophils # 0.0 (0-0.2) k/uL Sodium 136 L (137-145) mmol/L Potassium 4.4 (3.5-5.1) mmol/L Chloride 104 (98-107) mmol/L Carbon Dioxide 23 (22-30) mmol/L Anion Gap 9 mmol/L BUN 13 (7-17) mg/dL Creatinine 0.44 L (0.52-1.04) mg/dL Est GFR (CKD-EPI)AfAm >90 (>60 ml/min/1.73 sqM) Est GFR (CKD-EPI)NonAf >90 (>60 ml/min/1.73 sqM) Glucose 86 (74-99) mg/dL Calcium 9.9 (8.4-10.2) mg/dL Total Bilirubin 0.4 (0.2-1.3) mg/dL AST 23 (14-36) U/L ALT 22 (4-34) U/L Alkaline Phosphatase 75 (38-126) U/L Total Protein 6.8 (6.3-8.2) g/dL Albumin 3.9 (3.5-5.0) g/dL Lipase 89 (23-300) U/L Urine Color Colorless Urine Appearance Clear (Clear) Urine pH 6.5 (5.0-8.0) Ur Specific [place] 1.008 (1.001-1.035) Urine Protein Negative (Negative) Urine Glucose (UA) Negative (Negative) Urine Ketones Negative (Negative) Urine Blood Negative (Negative) Urine Nitrite Negative (Negative) Urine Bilirubin Negative (Negative) Urine Urobilinogen <2.0 (<2.0) mg/dL Ur Leukocyte Esterase Negative (Negative) Disposition Clinical Impression: Back pain Disposition: HOME SELF-CARE Condition: Stable Instructions (If sedation given, give patient instructions): Back Pain (ED) Additional Instructions: Please return to the Emergency Department if symptoms worsen or any other concer ns. Prescriptions: Lidocaine 5% Patch [Lidoderm 5% Patch] 1 patch TOPICAL DAILY #10 patch Is patient prescribed a controlled substance at d/c from ED?: No Referrals: Reyes Watson DO [Primary Care Provider] - 1-2 days Time of Disposition: 10:04
[2022-06-04 10:54] VITALS: BP 110/61; PULSE 77; TEMP 98
== END 2022-06-04 10:51 | disposition home or self-care (01) ==
LOC: EC 06:45
DX: M54.50 Low back pain, unspecified (principal); Z88.0 Allergy status to penicillin; Z88.5 Allergy status to narcotic agent; Z91.048 Other nonmedicinal substance allergy status; J45.909 Unspecified asthma, uncomplicated; F17.290 Nicotine dependence, other tobacco product, uncomplicated
CPT/HCPCS: 36415; 80053; 83690; 85025; 81003; 76705; 99284; 96365; 96361; J0131

== ENCOUNTER 2022-06-19 08:02 | Outpatient (CLI) | payer OTHER ==
[2022-06-19] MEDS ORDERED: bisacodyL 10 MG SUPP RECTAL STA (08:23)
[2022-06-19] MEDS ORDERED: DOCUSATE 100 MG CAP PO STA (08:24)
[2022-06-19 09:33] VITALS: BP 128/65; PULSE 94; RESP 18; TEMP 98
--- NOTE | 2022-06-21 11:03 | P.MSEPDOC ---
Presenting Problems - Arrival Data Date of Arrival on Unit: 06/19/22 Time of Arrival on Unit: 08:02 Mode of Transport: Ambulatory - Complaint OB-Reason for Admission/Chief Complaint: Other Comment: Constipation and intermittent n/v. No BM in one week. Pt states + hx of constipation prior to . Medical History - Information : 1 Para: 0 Term: 0 : 0 Abortions: Spontaneous or Elective: 0 Number of Living Children: 0 - Gestational Age Gestational Age by RAMON (wks/days): 25 Weeks and 5 Days Review of Systems - Review of Systems Constitutional: No problems Breast: No problems ENT: No problems Cardiovascular: No problems Respiratory: No problems Gastrointestinal: No problems Genitourinary: No problems Musculoskeletal: No problems Neurological: No problems Skin: No problems Vital Signs - Temperature Temperature: 98.0 F Temperature Source: Temporal Artery Scan - Pulse Right Sitting Brachial Pulse Rate: 94 Pulse Assessment Method: Automatic Cuff - Respirations Respiratory Rate: 18 Oxygen Delivery Method: Room Air - Blood Pressure Right Arm Sitting Blood Pressure: 128/65 Blood Pressure Mean: 86 Blood Pressure Source: Automatic Cuff Medical Screen Scoring - Assessment - Baby A Baseline FHR: 125 NST: Reactive Physician Notification - Physician Notified Physician Notified Date: 06/19/22 Physician Notified Time: 09:25 Physician: Rose Marie Moore New Order Received: Yes - Notification Comment Comment: Dc home, + BM after PO colace and Dulcolax supp. Pt to follow up in the office tomorrow as scheduled. Maternal Triage Index - Maternal Triage Index Presenting for scheduled procedure w/no complaint: No - Stat/Priority 1 Stat Priority 1: No - Urgent/Priority 2 Urgent Priority 2: No - Prompt/Priority 3 Prompt Priority 3: No - Non-Urgent/Priority 4 Non-Urgent Priority 4: Yes Criteria Met for Priority 4: Constipation. Disposition - Disposition OB Disposition: Discharge to home Discharge Date: 06/19/22 Discharge Time: 09:29 I agree with the RN Medical Screening Exam: Yes Case reviewed; plan agreed upon as documented in EMR&OBIX.: Yes Diagnosis: CONSTIPATION, UNSPECIFIED
== END 2022-06-19 09:33 | disposition home or self-care (01) ==
LOC: FBPOP 08:02
PROVIDERS: ATTEND Obstetrics & Gynecology
DX: O26.892 Other specified pregnancy related conditions, second trimester (principal); Z3A.25 25 weeks gestation of pregnancy; K59.00 Constipation, unspecified; Z88.0 Allergy status to penicillin; Z88.5 Allergy status to narcotic agent; Z91.048 Other nonmedicinal substance allergy status; F17.200 Nicotine dependence, unspecified, uncomplicated
CPT/HCPCS: 99213

== ENCOUNTER 2022-08-09 16:29 | Outpatient (CLI) | payer OTHER ==
[2022-08-09 17:48] LABS: Appearance,Urine Clear (Clear); Bacteria,Urine Occasional /hpf; Bilirubin,Urine Negative (Negative); Blood,Urine Negative (Negative); Color,Urine Light Yellow; Glucose,Urine (UA) Negative (Negative); Ketones,Urine Negative (Negative); Leukocyte Esterase,Urine Moderate (Negative); Nitrite,Urine Negative (Negative); Protein,Urine Negative (Negative); Specific Gravity,Urine 1.005 (1.001-1.035); Squamous Epithelial Cell,Urine 2 /hpf (0-4); Urobilinogen,Urine <2.0 mg/dL (<2.0); WBC,Urine 21 /hpf (0-5)
[2022-08-09 21:24] VITALS: BP 121/69; PULSE 95; RESP 16; TEMP 97.5
--- NOTE | 2022-08-21 21:19 | P.MSEPDOC ---
Presenting Problems - Arrival Data Date of Arrival on Unit: 08/09/22 Time of Arrival on Unit: 16:30 Mode of Transport: Ambulatory - Complaint OB-Reason for Admission/Chief Complaint: Acute Nausea/Vomiting Comment: PT PRESENTS TO TRIAGE WITH COMPLAINTS OF N/V/CRAMPING IN BACK WITH TIGHT BELLY. ACHY, JITTERY. WORSE SINCE 1AM BUT HAS FELT BAD OFF AND ON LAST 4 DAYS. STATES HAS OCCASIONAL COUGH. DENIES FEVER Medical History - Information : 1 Para: 0 Term: 0 : 0 Abortions: Spontaneous or Elective: 0 Number of Living Children: 0 - Gestational Age Gestational Age by RAMON (wks/days): 33 Weeks and 0 Days - History Complications: Smoker Review of Systems - Review of Systems Constitutional: Fatigue Breast: No problems ENT: Cough Cardiovascular: No problems Respiratory: No problems Gastrointestinal: No problems Genitourinary: No problems Musculoskeletal: No problems Neurological: No problems Skin: No problems Vital Signs - Temperature Temperature: 97.5 F Temperature Source: Temporal Artery Scan - Pulse Right Pulse Rate: 95 Pulse Assessment Method: Automatic Cuff - Respirations Respiratory Rate: 16 Oxygen Delivery Method: Room Air O2 Sat by Pulse Oximetry: 98 - Blood Pressure Right Arm Blood Pressure: 121/69 Blood Pressure Mean: 86 Blood Pressure Source: Automatic Cuff Medical Screen Scoring - Assessment - Baby A Baseline FHR: 115 Heart Rate - NICHD Category: Category I (Normal) NST: Reactive Physician Notification - Physician Notified Physician Notified Date: 08/09/22 Physician Notified Time: 19:13 Physician: Dr Moore New Order Received: Yes - Notification Comment Comment: Dr Moore updated with test results and pt tolerating oral fluids. order for discharge received Maternal Triage Index - Maternal Triage Index Presenting for scheduled procedure w/no complaint: No - Stat/Priority 1 Stat Priority 1: No - Urgent/Priority 2 Urgent Priority 2: No - Prompt/Priority 3 Prompt Priority 3: Yes Criteria Met for Priority 3: Dr Moore in department. updated pt here for triage 33 / w c/o N/V last 4 days with worse since 1am vomited 8 times today. states unable to keep food down. urine spec obtained yellow. initial fhr 145. nst iin progress. orders received for cepheid 4 Plex swab and ua Disposition - Disposition OB Disposition: Discharge to home Discharge Date: 08/09/22 Discharge Time: 19:25 I agree with the RN Medical Screening Exam: Yes Case reviewed; plan agreed upon as documented in EMR&OBIX.: Yes Diagnosis: VOMITING OF , UNSPECIFIED
== END 2022-08-09 19:25 | disposition home or self-care (01) ==
LOC: FBPOP 16:29
PROVIDERS: ATTEND Obstetrics & Gynecology
DX: O21.9 Vomiting of pregnancy, unspecified (principal); Z3A.33 33 weeks gestation of pregnancy; Z91.048 Other nonmedicinal substance allergy status; Z88.0 Allergy status to penicillin; Z88.1 Allergy status to other antibiotic agents; Z88.5 Allergy status to narcotic agent; F17.200 Nicotine dependence, unspecified, uncomplicated
CPT/HCPCS: 59025; 81001; 87086; 87636; G0463; 99213

== ENCOUNTER 2022-08-18 00:53 | Emergency (ER) | payer OTHER ==
[2022-08-18 01:01] VITALS: RESP 18; TEMP 98.3
[2022-08-18] MEDS ORDERED: LIDOCAINE 1% INJ 10MG/ML (30 ML VIAL-PF) SQ ONE (01:12)
[2022-08-18] MEDS ORDERED: CLINDAMYCIN 150 MG CAP PO STA (01:13)
--- NOTE | 2022-08-18 01:17 | ED ---
Skin/Abscess/FB HPI - General Chief complaint: Skin/Abscess/Foreign Body Stated complaint: Abscess on left leg Time Seen by Provider: 08/18/22 00:59 Source: patient, RN notes reviewed Mode of arrival: ambulatory Limitations: no limitations - History of Present Illness Initial comments: This is a 22-year-old female who is 34 weeks . Patient states that she has an abscess in her left groin area. Patient states she saw her [facility] last week and it was a small area. No treatment was done. Patient went to urgent care yesterday after the area worsen. Patient was started on Keflex. Patient took 3 doses of this medication then had a mild reaction. She states she has redness on her arms and legs as well as her abdomen. There was no r espiratory distress or throat symptoms. Patient presents here stating that she is having pain in the area of the abscess which is exacerbated by palpation and when she is walking. No fever or chills. Patient denies any abdominal or pelvic pain. No vaginal leakage. No vaginal bleeding. No headache, no fever or chills, no changes in vision or hearing, no sore throat or difficulty with speech, no neck pain, no chest pain or shortness of breath, no abdominal pain, no nausea or vomiting, no changes in urination or bowel movements, no numbness or tingling, no extremity pain, Past medical, surgical, social, and family history reviewed. - Related Data Home Medications Medication Instructions Recorded Confirmed Vit No.179/Iron/Folic 1 each PO DAILY 06/04/22 08/09/22 [ Tablet] Previous Rx's Medication Instructions Recorded Clindamycin [Cleocin] 450 mg PO Q8H #90 capsule 08/18/22 Allergies Allergy/AdvReac Type Severity Reaction Status Date / Time adhesive tape Allergy Rash/Hives Verified 08/18/22 00:57 amoxicillin Allergy Rash/Hives Verified 08/18/22 00:57 cephalexin [From Keflex] Allergy Rash/Hives Verified 08/18/22 00:58 Penicillins Allergy Rash/Hives Verified 08/18/22 00:57 morphine AdvReac Rapid Verified 08/18/22 00:57 Heart Rate Review of Systems ROS Statement: Those systems with pertinent positive or pertinent negative responses have been documented in the HPI. ROS Other: All systems not noted in ROS Statement are negative. Past Medical History Past Medical History: Asthma Additional Past Medical History / Comment(s): IBS, orthostatic hypertension, borderline diabetic,endometreosis History of Any Multi-Drug Resistant Organisms: None Reported Past Surgical History: Adenoidectomy, Tonsillectomy Additional Past Surgical History / Comment(s): Endometriosis laproscopic surgery on 09/19/21. Past Anesthesia/Blood Transfusion Reactions: No Reported Reaction Past Psychological History: Anxiety, Depression, PTSD Smoking Status: Current every day smoker Past Alcohol Use History: None Reported Past Drug Use History: None Reported General Exam - General Exam Comments Initial Comments: Patient does not appear to be ill or toxic. Noted to be tachycardic and triage. Limitations: no limitations General appearance: alert, in no apparent distress Head exam: Present: atraumatic, normocephalic, normal inspection Eye exam: Present: normal appearance, PERRL, EOMI. Absent: scleral icterus, conjunctival injection, periorbital swelling ENT exam: Present: normal exam, normal oropharynx, mucous membranes moist, normal external ear exam. Absent: mucous membranes dry Neck exam: Present: normal inspection, full ROM. Absent: tenderness, meningismus, lymphadenopathy Respiratory exam: Present: normal lung sounds bilaterally. Absent: respiratory distress, wheezes, rales, rhonchi, stridor Cardiovascular Exam: Present: regular rate, normal rhythm, tachycardia (104/m by auscultation and radial pulse), normal heart sounds. Absent: systolic murmur, diastolic murmur, rubs, gallop, clicks GI/Abdominal exam: Present: soft, normal bowel sounds, other (Gravid uterus, nontender). Absent: distended, tenderness, guarding, rebound, rigid Extremities exam: Present: normal inspection, full ROM, normal capillary refill. Absent: tenderness, pedal edema, joint swelling, calf tenderness Back exam: Present: normal inspection Neurological exam: Present: alert, oriented X3, CN II-XII intact Psychiatric exam: Present: normal affect, normal mood Skin exam: Present: warm, dry, intact, normal color, erythema (Mild erythema to the inner aspect of the left thigh just inferior to the inguinal fold. This is not correspond to the labia. This is on the inner/anterior aspect of the thigh. Consistent with abscess, mildly tender, erythema only associated with the abscess site, 2 cm in diameter.). Absent: rash Course Vital Signs 08/18/22 08/18/22 00:58 01:16 Temperature 98.3 F Pulse Rate 122 H 102 H Respiratory 18 18 Rate Blood Pressure 136/89 134/85 O2 Sat by Pulse 98 97 Oximetry Procedures - Incision & Drainage Consent Obtained: verbal consent Indication: Left groin abscess Anesthetic Used: lidocaine 1% Amount (mLs): 4 I&D Cleaning Method: Betadine Sterile Field Used?: Yes Scalpel Used: #11 Needle Aspiration Performed?: No Irrigation Performed?: Yes I&D Drainage Obtained: Pus, Blood Packing: Iodoform Culture Obtained?: Yes Patient Tolerated Procedure: well Medical Decision Making - Medical Decision Making Was pt. sent in by a medical professional or institution? @ -No Did you speak to anyone other than the patient for history? @ -no Did you review nursing and triage notes? @ -yes Were old charts reviewed? @ -no Differential Diagnosis? @ -Cutaneous abscess, not consistent with systemic disease. I consistent with lymphadenopathy. What testing was considered but not performed? (CT, X-rays, U/S, labs)? Why? @Considers laboratory work however this did not appear to be systemic problem. This was deferred after shared decision-making. What meds were considered but not given? Why? @ -[none] Did you discuss the management of the patient with other professionals? @ -ED attending physician Did you reconcile home meds? @ -[none] Was smoking cessation discussed for >3mins.? @ -[none] Was critical care preformed (if so, how long)? @ -[none] Were there social determinants of health that impacted care today? How? (Homelessness, low income, unemployed, alcoholism, drug addiction, transportation, low edu. Level, literacy, decrease access to med. care, half-way, rehab)? @ -Patient currently . heart tones in the 150s Was patient admitted / discharged? @ -Counseled on follow-up. heart tones in the 150s.Patient was told to return to the ER for any signs or symptoms worsen. Told to return immediately if any other problems arise. All questions answered. Treatment plan discussed. Patient in agreement Every effort has been made to ensure accuracy of this dictation. However, due to the limitations of electronic medical records and dictation devices, errors in charting still occur. Undiagnosed new problem with uncertain prognosis? @ -[none] Drug Therapy requiring intensive monitoring for toxicity (Heparin, Nitro, Insulin, Cardizem)? @ -[none] Were any procedures done? @ -Incision and drainage Diagnosis/symptom? @ -Left groin abscess Acute, or Chronic, or Acute on Chronic? @ -Acute Uncomplicated (without systemic symptoms) or Complicated (systemic symptoms)? @ -Complicated Side effects of treatment? @ -[none] Exacerbation, Progression, or Severe Exacerbation] @ -[no] Poses a threat to life or bodily function? @ -[no] Supervising physician Dr. Reyna Disposition Clinical Impression: Abscess of groin, left Disposition: HOME SELF-CARE Condition: Stable Instructions (If sedation given, give patient instructions): Abscess Incision and Drainage (ED) Additional Instructions: Take antibiotics as directed. Leave the packing material in place for 3 days. Follow-up with your [facility] for recheck. Return to the ER if she cannot get in with the [facility] or your regular doctor. [id number] Tylenol as directed on the bottle for pain control. Follow-up with your regular physician as directed. Return to the ER immediately if any symptoms worsen, new symptoms arise, or any other problems develop. Prescriptions: Clindamycin [Cleocin] 450 mg PO Q8H #90 capsule Is patient prescribed a controlled substance at d/c from ED?: No Referrals: Rose Marie Moore DO [Doctor of Osteopathic Medicine] - 08/21/22 Reyes Watson DO [Primary Care Provider] - 08/21/22 Time of Disposition: 01:44
[2022-08-18 01:51] VITALS: BP 134/85; PULSE 102
== END 2022-08-18 01:55 | disposition home or self-care (01) ==
LOC: EC 00:53
DX: L02.214 Cutaneous abscess of groin (principal); J45.909 Unspecified asthma, uncomplicated; F41.9 Anxiety disorder, unspecified; F32.A Depression, unspecified; F17.200 Nicotine dependence, unspecified, uncomplicated; Z88.0 Allergy status to penicillin; Z88.1 Allergy status to other antibiotic agents
CPT/HCPCS: 87070; 87205; 87075; 99282; 10060; J2001

== ENCOUNTER 2022-09-03 23:54 | Outpatient (CLI) | payer OTHER ==
[2022-09-04 01:32] VITALS: BP 132/71; PULSE 103; RESP 17; TEMP 98.1
--- NOTE | 2022-09-04 19:30 | P.MSEPDOC ---
Presenting Problems - Arrival Data Date of Arrival on Unit: 09/03/22 Time of Arrival on Unit: 23:54 Mode of Transport: Ambulatory - Complaint OB-Reason for Admission/Chief Complaint: Decreased Movement, Pain Comment: Pt presents to triage with c/o of decreased movement and cramping. Pt. reports decreased movement over the last two days, and starting at 2143 tonight of. intermittant cramping some stronger than others Medical History - Information : 1 Para: 0 Term: 0 : 0 Abortions: Spontaneous or Elective: 0 Number of Living Children: 0 - Gestational Age Gestational Age by RAMON (wks/days): 36 Weeks and 5 Days - History Complications: Smoker Review of Systems - Review of Systems Constitutional: No problems Breast: No problems ENT: No problems Cardiovascular: No problems Respiratory: No problems Gastrointestinal: No problems Genitourinary: No problems Musculoskeletal: No problems Neurological: No problems Skin: No problems Vital Signs - Temperature Temperature: 98.1 F Temperature Source: Oral - Pulse Right Brachial Pulse Rate: 103 Pulse Assessment Method: Automatic Cuff - Respirations Respiratory Rate: 17 Oxygen Delivery Method: Room Air O2 Sat by Pulse Oximetry: 97 - Blood Pressure Right Arm Blood Pressure: 132/71 Blood Pressure Mean: 91 Blood Pressure Source: Automatic Cuff Medical Screen Scoring - Cervical Exam Dilation (cm): 0 Effacement (%): 50 Station: -2 Membranes: Intact - Assessment - Baby A Baseline FHR: 130 Heart Rate - NICHD Category: Category I (Normal) NST: Reactive Physician Notification - Physician Notified Physician Notified Date: 09/04/22 Physician Notified Time: 01:07 Physician: Asiya Pearson New Order Received: Yes - Notification Comment Comment: Dr. Pearson given report on pt. Pt c/o. VS WNL. Reactive NST. Cat 1 FHTs with no contractions noted. Vag exam of closed/50/-2, no blood noted on exam glove. Orders received to d/c pt to home and reassure pt/discuss comfort measures. Pt has apt with Dr. Moore on 09/06. Maternal Triage Index - Urgent/Priority 2 Urgent Priority 2: Yes Provider Notified: Asiya Pearson Provider Notified Time: 01:07 Criteria Met for Priority 2: Decreased movement and cramping. - Prompt/Priority 3 Prompt Priority 3: Yes - Non-Urgent/Priority 4 Non-Urgent Priority 4: Yes Disposition - Disposition OB Disposition: Discharge to home Discharge Date: 09/04/22 Discharge Time: 01:16 I agree with the RN Medical Screening Exam: Yes Case reviewed; plan agreed upon as documented in EMR&OBIX.: Yes Diagnosis: DECREASED MOVEMENTS, THIRD TRIMESTER, UNSP
== END 2022-09-04 01:16 | disposition home or self-care (01) ==
LOC: FBPOP 23:54
PROVIDERS: ATTEND Obstetrics & Gynecology
DX: O36.8131 Decreased fetal movements, third trimester, fetus 1 (principal); Z91.048 Other nonmedicinal substance allergy status; F17.200 Nicotine dependence, unspecified, uncomplicated; Z88.0 Allergy status to penicillin; O99.333 Smoking (tobacco) complicating pregnancy, third trimester; Z88.5 Allergy status to narcotic agent
CPT/HCPCS: 59025; G0463; 99213

== ENCOUNTER 2022-09-18 02:04 | Outpatient (CLI) | payer OTHER ==
[2022-09-18 03:10] VITALS: BP 135/75; PULSE 100; RESP 18; TEMP 97.1
--- NOTE | 2022-09-19 12:54 | P.MSEPDOC ---
Presenting Problems - Arrival Data Date of Arrival on Unit: 09/18/22 Time of Arrival on Unit: 02:04 Mode of Transport: Wheelchair - Complaint OB-Reason for Admission/Chief Complaint: Headache Comment: Patient presents to triage for complaints of headache and facial numbness Medical History - Information : 1 Para: 0 - Gestational Age Gestational Age by RAMON (wks/days): 38 Weeks and 4 Days Review of Systems - Review of Systems Constitutional: No problems Breast: No problems ENT: No problems Cardiovascular: No problems Respiratory: No problems Gastrointestinal: No problems Genitourinary: No problems Musculoskeletal: No problems Neurological: No problems Skin: No problems Vital Signs - Temperature Temperature: 97.1 F Temperature Source: Tympanic - Pulse Pulse Oximetery Pulse Rate: 100 Pulse Assessment Method: Pulse Oximetry - Respirations Respiratory Rate: 18 Oxygen Delivery Method: Room Air O2 Sat by Pulse Oximetry: 98 - Blood Pressure Right Arm Blood Pressure: 135/75 Blood Pressure Mean: 95 Blood Pressure Source: Automatic Cuff Medical Screen Scoring - Cervical Exam Dilation (cm): 1.5 Membranes: Intact - Uterine Contractions Frequency From (mins): 2 Frequency To (mins): 4 Intensity: Mild Resting: Soft to palpation - Assessment - Baby A Baseline FHR: 135 Heart Rate - NICHD Category: Category I (Normal) NST: Reactive Physician Notification - Physician Notified Physician Notified Date: 09/18/22 Physician Notified Time: 00:32 Physician: Dr. Moore New Order Received: Yes (Discharge and send to ER) - Notification Comment Comment: Dr. Moore discharged patient from OB standpoint told patient to go down to ER. Maternal Triage Index - Stat/Priority 1 Stat Priority 1: No - Urgent/Priority 2 Urgent Priority 2: No - Prompt/Priority 3 Prompt Priority 3: Yes Criteria Met for Priority 3: Patient presents to triage for complaints of headache and facial numbness. Dr. Moore notified 231 with patient vital signs. Disposition - Disposition OB Disposition: Discharge to home I agree with the RN Medical Screening Exam: Yes Case reviewed; plan agreed upon as documented in EMR&OBIX.: Yes Diagnosis: HEADACHE, UNSPECIFIED
== END 2022-09-18 03:10 ==
LOC: FBPOP 02:04
PROVIDERS: ATTEND Obstetrics & Gynecology
DX: O29.43 Spinal and epidural anesthesia induced headache during pregnancy, third trimester (principal); R51.9 Headache, unspecified; Z3A.38 38 weeks gestation of pregnancy; Z91.048 Other nonmedicinal substance allergy status; Z88.0 Allergy status to penicillin; Z88.1 Allergy status to other antibiotic agents; Z88.5 Allergy status to narcotic agent; F17.200 Nicotine dependence, unspecified, uncomplicated
CPT/HCPCS: 59025; G0463; 99215

== ENCOUNTER 2022-09-18 02:45 | Emergency (ER) | payer OTHER ==
[2022-09-18 02:51] VITALS: BP 115/72; PULSE 102; RESP 16; TEMP 97.5
[2022-09-18] MEDS ORDERED: ACETAMINOPHEN TAB 500 MG TAB PO STA (02:56)
[2022-09-18] MEDS ORDERED: diphenhydrAMINE 50 MG CAP PO STA (02:56)
--- NOTE | 2022-09-18 02:57 | ED ---
Headache HPI - General Chief Complaint: Headache Stated Complaint: Headache Time Seen by Provider: 09/18/22 02:56 Source: patient, RN notes reviewed Mode of arrival: ambulatory Limitations: no limitations - History of Present Illness Initial Comments: 22-year-old female presents emergency from chief complaint of a headache. Patient states his started 6 hours ago. Patient states that this was a typical type headache but states symptoms are improving and resolving. Patient states that she felt like she had some tingling in her face. Patient states that she is and was concerned about preeclampsia she was extensively evaluated in the liver and biliary 4% on here. She states that her headache is nearly resolved or is resolving. Denies any chest pain or visual disturbance focal weakness no paresthesias states is bilateral posterior headache. Denies neck pain or neck stiffness patient offers no other complaints. - Related Data Home Medications Medication Instructions Recorded Confirmed Vit No.179/Iron/Folic 1 each PO DAILY 06/04/22 09/18/22 [ Tablet] Allergies Allergy/AdvReac Type Severity Reaction Status Date / Time adhesive tape Allergy Rash/Hives Verified 09/18/22 02:12 amoxicillin Allergy Rash/Hives Verified 09/18/22 02:12 cephalexin [From Keflex] Allergy Rash/Hives Verified 09/18/22 02:12 Penicillins Allergy Rash/Hives Verified 09/18/22 02:12 morphine AdvReac Rapid Verified 09/18/22 02:12 Heart Rate Review of Systems ROS Statement: Those systems with pertinent positive or pertinent negative responses have been documented in the HPI. ROS Other: All systems not noted in ROS Statement are negative. Past Medical History Past Medical History: Asthma Additional Past Medical History / Comment(s): IBS, orthostatic hypertension, borderline diabetic,endometreosis History of Any Multi-Drug Resistant Organisms: None Reported Past Surgical History: Adenoidectomy, Tonsillectomy Additional Past Surgical History / Comment(s): Endometriosis laproscopic surgery on 09/19/21. Past Anesthesia/Blood Transfusion Reactions: No Reported Reaction Past Psychological History: Anxiety, Depression, PTSD Smoking Status: Current every day smoker Past Alcohol Use History: None Reported Past Drug Use History: None Reported General Exam Limitations: no limitations General appearance: alert, in no apparent distress Head exam: Present: atraumatic, normocephalic, normal inspection Eye exam: Present: normal appearance, PERRL, EOMI. Absent: scleral icterus, conjunctival injection, periorbital swelling ENT exam: Present: normal exam, normal oropharynx, mucous membranes moist Neck exam: Present: normal inspection, full ROM. Absent: tenderness, meningismus, lymphadenopathy Respiratory exam: Present: normal lung sounds bilaterally. Absent: respiratory distress, wheezes, rales, rhonchi, stridor Cardiovascular Exam: Present: regular rate, normal rhythm, normal heart sounds. Absent: systolic murmur, diastolic murmur, rubs, gallop, clicks GI/Abdominal exam: Present: soft, normal bowel sounds. Absent: distended, tenderness, guarding, rebound, rigid Extremities exam: Present: normal inspection, full ROM, normal capillary refill. Absent: tenderness, pedal edema, joint swelling, calf tenderness Neurological exam: Present: alert, oriented X3, CN II-XII intact, reflexes normal. Absent: motor sensory deficit Course Vital Signs 09/18/22 02:48 Temperature 97.5 F L Pulse Rate 102 H Respiratory 16 Rate Blood Pressure 115/72 O2 Sat by Pulse 97 Oximetry Medical Decision Making - Medical Decision Making Was pt. sent in by a medical professional or institution (, PA, [employer], urgent care, hospital, or care home...) When possible be specific @ -No Did you speak to anyone other than the patient for history (EMS, parent, family, police, friend...)? What history was obtained from this source @ -No Did you review nursing and triage notes (agree or disagree)? Why? @ -I reviewed and agree with nursing and triage notes Were old charts reviewed (outside hosp., previous admission, EMS record, old EKG, old radiological studies, urgent care reports/EKG's, care home records)? Report findings @ -No old charts were reviewed Differential Diagnosis (chest pain, altered mental status, abdominal pain women, abdominal pain men, vaginal bleeding, weakness, fever, dyspnea, syncope, headache, dizziness, GI bleed, back pain, seizure, CVA, palpatations, mental health)? @ -Tension headache, cluster headache, migraine, neck pain, this is not an all inclusive list EKG interpreted by me (3pts min.). @ -None X-rays interpreted by me (1pt min.). @ -None done CT interpreted by me (1pt min.). @ -None done U/S interpreted by me (1pt. min.). @ -None done What testing was considered but not performed or refused? (CT, X-rays, U/S, labs)? Why? @ -Consider labs and imaging though patient had full evaluation and the labor and delivery floor What meds were considered but not given or refused? Why? @ -None Did you discuss the management of the patient with other professionals (professionals i.e. Dr., PA, [employer], lab, RT, psych nurse, perinatal social worker, spinning machine operator, teacher, residential care officer, outpatient case manager)? Give summary @ -No Was smoking cessation discussed for >3mins.? @ -No Was critical care preformed (if so, how long)? @ -No Were there social determinants of health that impacted care today? How? (Homelessness, low income, unemployed, alcoholism, drug addiction, transportation, low edu. Level, literacy, decrease access to med. care, fdc, rehab)? @ -No Was there de-escalation of care discussed even if they declined (Discuss DNR or withdrawal of care, Hospice)? DNR status @ -No What co-morbidities impacted this encounter? (DM, HTN, Smoking, COPD, CAD, Cance r, CVA, ARF, Chemo, Hep., AIDS, mental health diagnosis, sleep apnea, morbid obesity)? @ -None Was patient admitted / discharged? Hospital course, mention meds given and route, prescriptions, significant lab abnormalities, going to OR and other pertinent info. @ -Discharge patient had evaluation by HEALTH POLICY MANAGER. Patient's and on her headache is resolving patient offered IV fluids, medications patient declined she is neurologically intact will be discharged in stable condition. Undiagnosed new problem with uncertain prognosis? @ -No Drug Therapy requiring intensive monitoring for toxicity (Heparin, Nitro, Insulin, Cardizem)? @ -No Were any procedures done? @ -No Diagnosis/symptom? @ -Migraine headache Acute, or Chronic, or Acute on Chronic? @ -Acute Uncomplicated (without systemic symptoms) or Complicated (systemic symptoms)? @ -Uncomplicated Side effects of treatment? @ -No Exacerbation, Progression, or Severe Exacerbation? @ -No Poses a threat to life or bodily function? How? (Chest pain, [place], PA, pneumonia, PE, COPD, DKA, ARF, appy, cholecystitis, CVA, Diverticulitis, Homicidal, Suicidal, threat to staff... and all critical care pts) @ -No Disposition Clinical Impression: Migraine headache Disposition: HOME SELF-CARE Condition: Stable Instructions (If sedation given, give patient instructions): Acute Headache (ED) Additional Instructions: Please return to the Emergency Department if symptoms worsen or any other concerns. Is patient prescribed a controlled substance at d/c from ED?: No Referrals: Reyes Watson DO [Primary Care Provider] - 1-2 days Time of Disposition: 02:56
== END 2022-09-18 03:04 | disposition home or self-care (01) ==
LOC: EC 02:45
DX: O99.891 Other specified diseases and conditions complicating pregnancy (principal); G43.909 Migraine, unspecified, not intractable, without status migrainosus; F17.200 Nicotine dependence, unspecified, uncomplicated; J45.909 Unspecified asthma, uncomplicated; Z90.89 Acquired absence of other organs; Z88.1 Allergy status to other antibiotic agents; Z88.0 Allergy status to penicillin; Z88.5 Allergy status to narcotic agent; Z3A.38 38 weeks gestation of pregnancy
CPT/HCPCS: 99283

== ENCOUNTER 2022-09-24 00:01 | Inpatient (IN) | payer OTHER ==
[2022-09-24 01:04] LABS: Basophils % (A) 0 %; Eosinophils # (A) 0.1 k/uL (0-0.7); Eosinophils % (A) 0 %; HCT 33.4 % (34.0-46.0); HGB 11.6 gm/dL (11.4-16.0); Lymphocytes # (A) 3.1 k/uL (1.0-4.8); Lymphocytes % (A) 17 %; MCH 29.4 pg (25.0-35.0); MCHC 34.6 g/dL (31.0-37.0); MCV 84.9 fL (80.0-100.0); Monocytes # (A) 0.7 k/uL (0-1.0); Monocytes % (A) 4 %; Neutrophils # (A) 13.7 k/uL (1.3-7.7); Neutrophils % (A) 77 %; Platelet Count 360 k/uL (150-450); RBC 3.94 m/uL (3.80-5.40); RDW 13.7 % (11.5-15.5); WBC 17.8 k/uL (3.8-10.6)
[2022-09-24 02:16] LABS: Amphetamine Screen,Urine Not Detected (NotDetected); Barbiturate Screen,Urine Not Detected (NotDetected); Benzodiazepines Screen,Urine Not Detected (NotDetected); Cocaine Screen,Urine Not Detected (NotDetected); Methadone Screen, Urine Not Detected (NotDetected); Opiate Screen,Urine Not Detected (NotDetected); Oxycodone Screen, Urine Not Detected (NotDetected); Phencyclidine Screen,Urine Not Detected (NotDetected); Tricyclic Antidepressant,Urine Not Detected (NotDetected); Urn Cannabinoid Scrn Detected (NotDetected)
[2022-09-24] MEDS: LACTATED RINGERS 1,000 ML IV SCH ×2 (06:10→08:36)
[2022-09-24] MEDS ORDERED: LIDOCAINE 0.5% (PF) 5 MG/ML (50 ML SDV) SQ PRN (06:31)
[2022-09-24] MEDS ORDERED: TERBUTALINE 1 MG/ML VIAL SQ PRN (06:31)
[2022-09-24] MEDS ORDERED: OXYTOCIN 30 UNITS/500 ML NS 30 UNIT in SALINE 1 500ML.BAG IV SCH ×2 (06:45→13:15)
[2022-09-24] MEDS ORDERED: BUTORPHANOL 1 MG/ML 1 ML VIAL IV PRN (07:13)
[2022-09-24] MEDS ORDERED: CALCIUM CARBONATE 500 MG CHEWABLE PO PRN (08:09)
[2022-09-24] MEDS ORDERED: ROPIVACAINE 5 MG/ML 20 ML AMPULE ONE (08:53)
[2022-09-24] MEDS ORDERED: fentaNYL (PF) 50 MCG/ML 5 ML AMP ONE (08:53)
[2022-09-24] MEDS ORDERED: SODIUM CHLORIDE 0.9% 100 ML BAG ONE (08:53)
--- NOTE | 2022-09-24 12:20 | P.HPOB ---
History of Present Illness H&P Date: 09/24/22 Chief Complaint: labor 22 year old presents at 39 weeks with contractions. She was scheduled for induction today but came in miesha anyway. Her cervix is 2/70/-2 and she was miesha every 3 minutes. heart tones 135 with moderate variability and reactive. Review of Systems All systems: negative Constitutional: Denies chills, Denies fever Eyes: denies blurred vision, denies pain Ears, nose, mouth and throat: Denies headache, Denies sore throat Cardiovascular: Denies chest pain, Denies shortness of breath Respiratory: Denies cough Gastrointestinal: Denies abdominal pain, Denies diarrhea, Denies nausea, Denies vomiting Genitourinary: Denies dysuria, Denies hematuria Musculoskeletal: Denies myalgias Integumentary: Denies pruritus, Denies rash Neurological: Denies numbness, Denies weakness Psychiatric: Denies anxiety, Denies depression Endocrine: Denies fatigue, Denies weight change Past Medical History Past Medical History: Asthma Additional Past Medical History / Comment(s): IBS, orthostatic hypertension, borderline diabetic, endometriosis History of Any Multi-Drug Resistant Organisms: None Reported Past Surgical History: Adenoidectomy, Tonsillectomy Additional Past Surgical History / Comment(s): Endometriosis laproscopic surgery on 09/19/21 Past Anesthesia/Blood Transfusion Reactions: No Reported Reaction Past Psychological History: Anxiety, Depression Smoking Status: Current every day smoker Past Alcohol Use History: None Reported Past Drug Use History: Marijuana Additional Drug Use History / Comment(s): Pt reports THC in early , but no current use Medications and Allergies Home Medications Medication Instructions Recorded Confirmed Type Vit No.179/Iron/Folic 1 each PO DAILY 06/04/22 09/24/22 History [ Tablet] Allergies Allergy/AdvReac Type Severity Reaction Status Date / Time adhesive tape Allergy Rash/Hives Verified 09/24/22 00:06 amoxicillin Allergy Rash/Hives Verified 09/24/22 00:06 cephalexin [From Keflex] Allergy Rash/Hives Verified 09/24/22 00:06 Penicillins Allergy Rash/Hives Verified 09/24/22 00:06 morphine AdvReac Rapid Verified 09/24/22 00:06 Heart Rate Exam Osteopathic Statement: *. No significant issues noted on an osteopathic structural exam other than those noted in the History and Physical/Consult. Vital Signs Temp Pulse Resp BP Pulse Ox 09/24/22 00:42 98.1 F 114 H 18 143/80 98 Intake and Output 09/23/22 09/24/22 09/24/22 22:59 06:59 14:59 Other: Weight 87.997 kg Heart: Regular rate and rhythm Lungs: Clear to auscultation bilaterally Abdomen: Soft, nontender Extremities: Negative Homans sign Results Result Diagrams: 09/24/22 00:51 Abnormal Lab Results - Last 24 Hours (Table) 09/24/22 09/24/22 Range/Units 00:10 00:51 WBC 17.8 H (3.8-10.6) k/uL Hct 33.4 L (34.0-46.0) % Neutrophils # 13.7 H (1.3-7.7) k/uL U Marijuana (THC) Screen Detected H (NotDetected) Assessment and Plan (1) Normal labor Current Visit: Yes Status: Acute Code(s): O80 - ENCOUNTER FOR FULL-TERM UNCOMPLICATED DELIVERY; Z37.9 - OUTCOME OF DELIVERY, UNSPECIFIED SNOMED Code(s): 40126331 Plan: 1. admit to [facility] 2. pitocin augmentation 3. anticipate normal vaginal delivery
[2022-09-24] MEDS ORDERED: SIMETHICONE 80 MG CHEWABLE PO PRN (13:01)
[2022-09-24] MEDS ORDERED: diphenhydrAMINE 50 MG CAP PO PRN (13:01)
[2022-09-24] MEDS ORDERED: diphenhydrAMINE 50 MG/ML 1 ML VIAL IVP PRN ×2 (13:01)
[2022-09-24] MEDS ORDERED: Rhogam IMMUNE GLOBULIN 1,500 UNIT/1 ML IM ONE (13:01)
[2022-09-24] MEDS ORDERED: LANOLIN CREAM 5 GM TUBE TOPICAL PRN (13:01)
[2022-09-24] MEDS ORDERED: HYDROCORTISONE 2.5% RECTAL CREAM 30 GM TUBE RECTAL PRN (13:01)
[2022-09-24] MEDS ORDERED: BENZOCAINE/MENTHOL SPRAY 1 GM/SPRAY AEROSOL TOPICAL PRN (13:01)
[2022-09-24] MEDS ORDERED: ZOLPIDEM 5 MG TAB PO PRN (13:01)
[2022-09-24] MEDS ORDERED: diphenhydrAMINE 25 MG CAP PO PRN (13:01)
[2022-09-24] MEDS: IBUPROFEN 600 MG TAB PO PRN (19:48)
[2022-09-24] MEDS: SENNOSIDES-DOCUSATE SODIUM 1 EACH TAB PO SCH (20:28)
[2022-09-25] MEDS: ACETAMINOPHEN TAB 325 MG TAB PO PRN ×2 (00:53→08:21)
--- NOTE | 2022-09-25 01:40 | P.PROBDLV ---
Vaginal Delivery Note - . Vaginal Delivery Note: 22 year old presents at 39 weeks with contractions. She was scheduled for induction today but came in miesha anyway. Her cervix is 2/70/-2 and she was miesha every 3 minutes. heart tones 135 with moderate variability and reactive. Pitocin was started and amniotomy performed at 7:07 AM, clear fluid noted. When she was very uncomfortable she did get an epidural. Her cervix was completely dilated at 12:44 PM. She pushed, delivered a viable male infant over intact perineum under epidural anesthesia at 12:50 PM. Head delivered OA, anterior shoulder delivered gentle downward guidance follow-up posterior shoulder and rest of body. Nose and mouth bulb suctioned, cord clamped and cut, infant placed mother's abdomen. Apgars 9, 9, weight 8 pounds 3.4 ounces. Vagina, cervix, perineum inspected. First-degree midline laceration was repaired with 3-0 Vicryl. Estimated blood loss 200 mL. Mother and baby in stable condition.
--- NOTE | 2022-09-25 01:51 | P.MSEPDOC ---
Presenting Problems - Arrival Data Date of Arrival on Unit: 09/24/22 Time of Arrival on Unit: 00:00 Mode of Transport: Ambulatory - Complaint OB-Reason for Admission/Chief Complaint: Possible Onset of Labor Comment: Pt reports UC's q3-4min since 2044. Medical History - Information : 1 Para: 0 Term: 0 : 0 Abortions: Spontaneous or Elective: 0 Number of Living Children: 0 - Gestational Age Gestational Age by RAMON (wks/days): 39 Weeks and 5 Days - History Complications: Smoker, Hx. Substance Abuse Comment: THC use in early , pt reports no current use Review of Systems - Review of Systems Constitutional: No problems Breast: No problems ENT: No problems Cardiovascular: No problems Respiratory: No problems Gastrointestinal: No problems Genitourinary: No problems Musculoskeletal: No problems Neurological: No problems Skin: No problems Vital Signs - Temperature Temperature: 97.7 F Temperature Source: Oral - Pulse Pulse Oximetery Pulse Rate: 71 Pulse Assessment Method: Pulse Oximetry - Respirations Respiratory Rate: 16 Oxygen Delivery Method: Room Air O2 Sat by Pulse Oximetry: 99 - Blood Pressure Right Arm Blood Pressure: 107/64 Blood Pressure Mean: 78 Blood Pressure Source: Automatic Cuff Medical Screen Scoring - Cervical Exam Dilation (cm): 1 Effacement (%): 70 Station: -3 Membranes: Intact - Uterine Contractions Frequency From (mins): 3 Frequency To (mins): 4 Duration From (seconds): 50 Duration To (seconds): 90 Intensity: Mild Resting: Soft to palpation - Assessment - Baby A Baseline FHR: 140 Heart Rate - NICHD Category: Category I (Normal) NST: Reactive Physician Notification - Physician Notified Physician Notified Date: 09/24/22 Physician Notified Time: 00:30 Physician: Cecilio Walker - Notification Comment Comment: Dr. Walker in unit for another pt at this time, aware of pt's arrival. RN. reported maternal and status including SVE and FHT's. Orders to recheck SVE in 1. hour, if no change pt can be taken off the monitor and proceed with IOL orders in the AM. per routine. RN to discuss POC with pt and SO. Maternal Triage Index - Maternal Triage Index Presenting for scheduled procedure w/no complaint: No - Stat/Priority 1 Stat Priority 1: No - Urgent/Priority 2 Urgent Priority 2: No - Prompt/Priority 3 Prompt Priority 3: No - Non-Urgent/Priority 4 Non-Urgent Priority 4: Yes Criteria Met for Priority 4: Pt is a with RAMON 09/26/22 here at 39.4 weeks of gestation with c/o UC's. since 2044 rated 7/10 on a 0-10 scale. Pt denies complications with the . Pt. reported that she is scheduled for elective IOL in the AM, brought to room for. elvaluation. Disposition - Disposition OB Disposition: Admit Transferred to:: [facility] I agree with the RN Medical Screening Exam: Yes Case reviewed; plan agreed upon as documented in EMR&OBIX.: Yes Diagnosis: ENCOUNTER FOR FULL-TERM UNCOMPLICATED DELIVERY
[2022-09-25] MEDS: IBUPROFEN 600 MG TAB PO PRN ×2 (04:05→12:29)
[2022-09-25 05:37] LABS: Basophils % (A) 0 %; Eosinophils # (A) 0.1 k/uL (0-0.7); Eosinophils % (A) 1 %; HGB 10.5 gm/dL (11.4-16.0); Lymphocytes # (A) 2.8 k/uL (1.0-4.8); Lymphocytes % (A) 17 %; MCH 29.1 pg (25.0-35.0); MCV 85.5 fL (80.0-100.0); Mean Platelet Volume 8.8; Monocytes # (A) 0.9 k/uL (0-1.0); Monocytes % (A) 5 %; Neutrophils # (A) 12.8 k/uL (1.3-7.7); Neutrophils % (A) 75 %; Platelet Count 288 k/uL (150-450); RBC 3.63 m/uL (3.80-5.40); RDW 13.7 % (11.5-15.5)
[2022-09-25 08:14] VITALS: RESP 18
[2022-09-25] MEDS: SENNOSIDES-DOCUSATE SODIUM 1 EACH TAB PO SCH (09:03)
[2022-09-25 15:22] VITALS: BP 111/64; PULSE 60; TEMP 98.5
== END 2022-09-25 15:25 | disposition home or self-care (01) | DRG 807 ==
LOC: 4FBP 00:01
PROVIDERS: ADMIT Obstetrics & Gynecology; ATTEND Obstetrics & Gynecology
PROC: 10E0XZZ Delivery of Products of Conception, External Approach (ICD-10-PCS; principal; 2022-09-24)
PROC: 0HQ9XZZ Repair Perineum Skin, External Approach (ICD-10-PCS; principal; 2022-09-24)
DX: O70.0 First degree perineal laceration during delivery (principal); Z37.0 Single live birth; Z3A.39 39 weeks gestation of pregnancy; F17.200 Nicotine dependence, unspecified, uncomplicated; O99.334 Smoking (tobacco) complicating childbirth; O99.62 Diseases of the digestive system complicating childbirth; K58.9 Irritable bowel syndrome, unspecified; J45.909 Unspecified asthma, uncomplicated; O99.52 Diseases of the respiratory system complicating childbirth; Z28.310 Unvaccinated for COVID-19; Z79.899 Other long term (current) drug therapy; Z88.1 Allergy status to other antibiotic agents; Z88.5 Allergy status to narcotic agent; Z88.0 Allergy status to penicillin; R73.03 Prediabetes
CPT/HCPCS: 59025; 80306; 85025; 85461; 86850; 86900; 86901; 99213

== ENCOUNTER → 2022-12-18 | Outpatient (CLI) | payer OTHER ==
--- NOTE | 2022-12-18 16:45 | XR ---
EXAMINATION TYPE: XR foot complete bilateral DATE OF EXAM: 12/18/2022 3:08 PM INDICATION: Patient age:Female; 22 years old; Reason for study: M79.671 M79.672; COMPARISON: 11/22/2010 TECHNIQUE: The bilateral feet was examined in the AP, oblique, and lateral projections. FINDINGS: Left: No evidence of any acute osseous pathology. No evidence of soft tissue swelling. Joints are pr eserved. Right:: No evidence of any acute osseous pathology. No evidence of soft tissue swelling. Joints are preserved. IMPRESSION: No evidence of acute fracture.
== END | disposition home or self-care (01) ==
LOC: RADXRMAIN 14:46
PROVIDERS: ATTEND Family Medicine
DX: M79.671 Pain in right foot (principal); M79.672 Pain in left foot

== ENCOUNTER 2024-05-28 08:23 | Inpatient (IN) | payer OTHER ==
[2024-05-28] MEDS: ACETAMINOPHEN IV (For NPO) 1,000 MG in EMPTY BAG 1 BAG IVPB STA (09:14)
[2024-05-28 09:24] LABS: Basophils % (A) 0 %; Eosinophils # (A) 0.2 k/uL (0-0.7); Eosinophils % (A) 1 %; HCT 34.8 % (34.0-46.0); HGB 12.3 gm/dL (11.4-16.0); Lymphocytes # (A) 0.7 k/uL (1.0-4.8); Lymphocytes % (A) 3 %; MCHC 35.3 g/dL (31.0-37.0); Mean Platelet Volume 9.2; Monocytes # (A) 0.7 k/uL (0-1.0); Monocytes % (A) 3 %; Neutrophils # (A) 23.5 k/uL (1.3-7.7); Neutrophils % (A) 93 %; Platelet Count 259 k/uL (150-450); RBC 4.09 m/uL (3.80-5.40); RDW 12.6 % (11.5-15.5); WBC 25.2 k/uL (3.8-10.6)
[2024-05-28 09:29] LABS: ALT 13 U/L (4-34); AST 17 U/L (14-36); African American GFR (CKD) >90 (>60 ml/min/1.73 sqM); Albumin 3.9 g/dL (3.5-5.0); Alkaline Phosphatase 84 U/L (38-126); Anion Gap 9 mmol/L; Blood Urea Nitrogen 12 mg/dL (7-17); Calcium 9.2 mg/dL (8.4-10.2); Carbon Dioxide 22 mmol/L (22-30); Chloride 108 mmol/L (98-107); Glucose 113 mg/dL (74-99); Non-African American GFR(CKD) >90 (>60 ml/min/1.73 sqM); Potassium 2.8 mmol/L (3.5-5.1); Sodium 139 mmol/L (137-145); Total Bilirubin 1.5 mg/dL (0.2-1.3); Total Protein 6.6 g/dL (6.3-8.2)
[2024-05-28] MEDS: droPERidol 5 MG/2 ML VIAL IVP ONE (09:39)
[2024-05-28] MEDS: KETOROLAC 15 MG/ML 1 ML VIAL IVP STA (09:40)
--- NOTE | 2024-05-28 10:05 | ED ---
General Adult HPI - General Chief complaint: Nausea/Vomiting/Diarrhea Stated complaint: NV Time Seen by Provider: 05/28/24 08:36 Source: patient, RN notes reviewed Mode of arrival: EMS Limitations: no limitations - History of Present Illness Initial comments: 24-year-old female presents emergency department with chief complaint of nausea vomiting abdominal pain, body aches. She states symptoms started over the last few days patient states that she has been taken Tylenol Motrin with no relief she noted had a fever. She complains of diffuse abdominal pain denies any urinary symptoms no change in bowel habits denies any sick contacts. She states she never had any like this in the past. Patient was brought via EMS. Patient did have some fluids given. Patient states that she has severe pain states that her body hurts all over she cannot localize the pain at this time. - Related Data Home Medications Medication Instructions Recorded Confirmed Vit No.179/Iron/Folic 1 each PO DAILY 06/04/22 09/24/22 [ Tablet] Previous Rx's Medication Instructions Recorded Nitrofurantoin Monohyd/M-Cryst 100 mg PO Q12HR #10 cap 10/12/22 [Macrobid] Allergies Allergy/AdvReac Type Severity Reaction Status Date / Time adhesive tape Allergy Rash/Hives Verified 05/28/24 08:48 amoxicillin Allergy Rash/Hives Verified 05/28/24 08:48 cephalexin [From Keflex] Allergy Rash/Hives Verified 05/28/24 08:48 Penicillins Allergy Rash/Hives Verified 05/28/24 08:48 morphine AdvReac Rapid Verified 05/28/24 08:48 Heart Rate Review of Systems ROS Statement: Those systems with pertinent positive or pertinent negative responses have been documented in the HPI. ROS Other: All systems not noted in ROS Statement are negative. Past Medical History Past Medical History: Asthma Additional Past Medical History / Comment(s): IBS, orthostatic hypertension, borderline diabetic, endometriosis History of Any Multi-Drug Resistant Organisms: None Reported Past Surgical History: Adenoidectomy, Tonsillectomy Additional Past Surgical History / Comment(s): Endometriosis laproscopic surgery on 09/19/21 Past Anesthesia/Blood Transfusion Reactions: No Reported Reaction Past Psychological History: Anxiety, Depression Smoking Status: Current every day smoker Past Alcohol Use History: None Reported Past Drug Use History: Marijuana General Exam Limitations: no limitations General appearance: alert, in no apparent distress Head exam: Present: atraumatic, normocephalic, normal inspection Eye exam: Present: normal appearance, PERRL, EOMI. Absent: scleral icterus, conjunctival injection, periorbital swelling ENT exam: Present: normal exam, mucous membranes moist Neck exam: Present: normal inspection, full ROM. Absent: tenderness, m eningismus, lymphadenopathy Respiratory exam: Present: normal lung sounds bilaterally. Absent: respiratory distress, wheezes, rales, rhonchi, stridor Cardiovascular Exam: Present: normal rhythm, tachycardia, normal heart sounds. Absent: systolic murmur, diastolic murmur, rubs, gallop, clicks GI/Abdominal exam: Present: soft, tenderness, normal bowel sounds. Absent: distended, guarding, rebound, rigid Course Vital Signs 05/28/24 05/28/24 05/28/24 08:46 09:40 11:31 Temperature 101.5 F H 101.6 F H 99.3 F Pulse Rate 108 H 106 H Respiratory 18 18 Rate Blood Pressure 97/57 O2 Sat by Pulse 98 99 Oximetry 05/28/24 12:21 Temperature 98.5 F Pulse Rate 107 H Respiratory 20 Rate Blood Pressure 99/67 O2 Sat by Pulse 99 Oximetry Medical Decision Making - Medical Decision Making Was pt. sent in by a medical professional or institution ([facility], SPORTS THERAPIST, urgent care, hospital, or prison...) When possible be specific @ -[No] Did you speak to anyone other than the patient for history (EMS, parent, family, police, friend...)? What history was obtained from this source @ -[No] Did you review nursing and triage notes (agree or disagree)? Why? @ -[I reviewed and agree with nursing and triage notes] Were old charts reviewed (outside hosp., previous admission, EMS record, old EKG, old radiological studies, urgent care reports/EKG's, prison records)? Report findings @ -[No old charts were reviewed] Differential Diagnosis (chest pain, altered mental status, abdominal pain women, abdominal pain men, vaginal bleeding, weakness, fever, dyspnea, syncope, headache, dizziness, GI bleed, back pain, seizure, CVA, palpatations, mental health, musculoskeletal)? @ -Differential Fever: Pneumonia, viral URI, endocarditis, myocarditis, pericarditis, otitis, sinusitis, peritonsillar Abscess, retropharyngeal Abscess, epiglottitis, peritonitis, appendicitis, Hafsa cystitis, diverticulitis, hepatitis, colitis, UTI, PID, TOA, pyelonephritis, prostatitis, epididymitis, meningitis, encephalitis, pulmonary embolism, CVA, thyroid storm, pancreatitis, adrenal crisis, cavernous sinus thrombosis, this is not meant to be an all-inclusive list. EKG interpreted by me (3pts min.). @ -None X-rays interpreted by me (1pt min.). @ -Chest x-ray shows no acute cardiopulmonary process CT interpreted by me (1pt min.). @ -CT pelvis showing left ureteral calculus 9.4 mm U/S interpreted by me (1pt. min.). @ -[None done] What testing was considered but not performed or refused? (CT, X-rays, U/S, labs)? Why? @ -[None] What meds were considered but not given or refused? Why? @ -[None] Did you discuss the management of the patient with other professionals (professionals i.e. , PA, SPORTS THERAPIST, lab, RT, psych nurse, social insurance analyst, back stayer, teacher, bank operations officer, rehabilitation caseworker)? Give summary @ -Discussed case with Dr. cox on-call urology recommends patient n.p.o. admitted to medicine IV antibiotics and stent placement discussed the case with Dr. Ponce for admission Was smoking cessation discussed for >3mins.? @ -[No] Was critical care preformed (if so, how long)? @ -[No] Were there social determinants of health that impacted care today? How? (Homelessness, low income, unemployed, alcoholism, drug addiction, transportation, low edu. Level, literacy, decrease access to med. care, correction, rehab)? @ -[No] Was there de-escalation of care discussed even if they declined (Discuss DNR or withdrawal of care, Hospice)? DNR status @ -[No] What co-morbidities impacted this encounter? (DM, HTN, Smoking, COPD, CAD, Cancer, CVA, ARF, Chemo, Hep., AIDS, mental health diagnosis, sleep apnea, morbid obesity)? @ -[None] Was patient admitted / discharged? Hospital course, mention meds given and route, prescriptions, significant lab abnormalities, going to OR and other pertinent info. @ -Admitted patient's found to have renal calculus with UTI, leukocytosis and fever concerning for septic stone. Patient has multiple drug allergies was given Levaquin, IV fluid bolus admitted for stent placement n.p.o. Undiagnosed new problem with uncertain prognosis? @ -[No] Drug Therapy requiring intensive monitoring for toxicity (Heparin, Nitro, Insulin, Cardizem)? @ -[No] Were any procedures done? @ -[No] Diagnosis/symptom? @ -Septic stone, no abdominal pain, nausea vomiting Acute, or Chronic, or Acute on Chronic? @ -Acute Uncomplicated (without systemic symptoms) or Complicated (systemic symptoms)? @ -Complicated Side effects of treatment? @ -[No] Exacerbation, Progression, or Severe Exacerbation? @ -[No] Poses a threat to life or bodily function? How? (Chest pain, USA, SC, pneumonia, PE, COPD, DKA, ARF, appy, cholecystitis, CVA, Diverticulitis, Homicidal, Suicidal, threat to staff... and all critical care pts) @ -Yes sepsis, endorgan failure - Lab Data Result diagrams: 05/28/24 09:06 05/28/24 09:06 Lab Results 05/28/24 05/28/24 05/28/24 Range/Units 09:06 09:06 09:06 WBC 25.2 H (3.8-10.6) k/uL RBC 4.09 (3.80-5.40) m/uL Hgb 12.3 (11.4-16.0) gm/dL Hct 34.8 (34.0-46.0) % MCV 85.0 (80.0-100.0) fL MCH 30.0 (25.0-35.0) pg MCHC 35.3 (31.0-37.0) g/dL RDW 12.6 (11.5-15.5) % Plt Count 259 (150-450) k/uL MPV 9.2 Neutrophils % 93 % Lymphocytes % 3 % Monocytes % 3 % Eosinophils % 1 % Basophils % 0 % Neutrophils # 23.5 H (1.3-7.7) k/uL Lymphocytes # 0.7 L (1.0-4.8) k/uL Monocytes # 0.7 (0-1.0) k/uL Eosinophils # 0.2 (0-0.7) k/uL Basophils # 0.0 (0-0.2) k/uL Sodium 139 (137-145) mmol/L Potassium 2.8 L (3.5-5.1) mmol/L Chloride 108 H (98-107) mmol/L Carbon Dioxide 22 (22-30) mmol/L Anion Gap 9 mmol/L BUN 12 (7-17) mg/dL Creatinine 0.66 (0.52-1.04) mg/dL Est GFR (CKD-EPI)AfAm >90 (>60 ml/min/1.73 sqM) Est GFR (CKD-EPI)NonAf >90 (>60 ml/min/1.73 sqM) Glucose 113 H (74-99) mg/dL Calcium 9.2 (8.4-10.2) mg/dL Total Bilirubin 1.5 H (0.2-1.3) mg/dL AST 17 (14-36) U/L ALT 13 (4-34) U/L Alkaline Phosphatase 84 (38-126) U/L Total Protein 6.6 (6.3-8.2) g/dL Albumin 3.9 (3.5-5.0) g/dL Urine Color Urine Appearance (Clear) Urine pH (5.0-8.0) Ur Specific [place] (1.001-1.035) Urine Protein (Negative) Urine Glucose (UA) (Negative) Urine Ketones (Negative) Urine Blood (Negative) Urine Nitrite (Negative) Urine Bilirubin (Negative) Urine Urobilinogen (<2.0) mg/dL Ur Leukocyte Esterase (Negative) Urine RBC (0-5) /hpf Urine WBC (0-5) /hpf Urine WBC Clumps (None) /hpf Ur Squamous Epith Cells (0-4) /hpf Urine Mucus (None) /hpf Urine HCG, Qual (Not Detectd) Influenza Type A (PCR) Not Detected (Not Detectd) Influenza Type B (PCR) Not Detected (Not Detectd) RSV (PCR) Not Detected (Not Detectd) SARS-CoV-2 (PCR) Not Detected (Not Detectd) 05/28/24 05/28/24 Range/Units 11:07 11:07 WBC (3.8-10.6) k/uL RBC (3.80-5.40) m/uL Hgb (11.4-16.0) gm/dL Hct (34.0-46.0) % MCV (80.0-100.0) fL MCH (25.0-35.0) pg MCHC (31.0-37.0) g/dL RDW (11.5-15.5) % Plt Count (150-450) k/uL MPV Neutrophils % % Lymphocytes % % Monocytes % % Eosinophils % % Basophils % % Neutrophils # (1.3-7.7) k/uL Lymphocytes # (1.0-4.8) k/uL Monocytes # (0-1.0) k/uL Eosinophils # (0-0.7) k/uL Basophils # (0-0.2) k/uL Sodium (137-145) mmol/L Potassium (3.5-5.1) mmol/L Chloride (98-107) mmol/L Carbon Dioxide (22-30) mmol/L Anion Gap mmol/L BUN (7-17) mg/dL Creatinine (0.52-1.04) mg/dL Est GFR (CKD-EPI)AfAm (>60 ml/min/1.73 sqM) Est GFR (CKD-EPI)NonAf (>60 ml/min/1.73 sqM) Glucose (74-99) mg/dL Calcium (8.4-10.2) mg/dL Total Bilirubin (0.2-1.3) mg/dL AST (14-36) U/L ALT (4-34) U/L Alkaline Phosphatase (38-126) U/L Total Protein (6.3-8.2) g/dL Albumin (3.5-5.0) g/dL Urine Color Yellow Urine Appearance Cloudy H (Clear) Urine pH 6.5 (5.0-8.0) Ur Specific [place] 1.019 (1.001-1.035) Urine Protein 1+ H (Negative) Urine Glucose (UA) Negative (Negative) Urine Ketones Negative (Negative) Urine Blood Small H (Negative) Urine Nitrite Positive H (Negative) Urine Bilirubin Negative (Negative) Urine Urobilinogen <2.0 (<2.0) mg/dL Ur Leukocyte Esterase Large H (Negative) Urine RBC 4 (0-5) /hpf Urine WBC >182 H (0-5) /hpf Urine WBC Clumps Many H (None) /hpf Ur Squamous Epith Cells 2 (0-4) /hpf Urine Mucus Rare H (None) /hpf Urine HCG, Qual Not Detected (Not Detectd) Influenza Type A (PCR) (Not Detectd) Influenza Type B (PCR) (Not Detectd) RSV (PCR) (Not Detectd) SARS-CoV-2 (PCR) (Not Detectd) Disposition Clinical Impression: Abdominal pain, Nausea & vomiting Narrative: Septic stone Disposition: ADMITTED IP TO THIS HOSP Condition: Serious Referrals: Reyes Watson DO [Primary Care Provider] - 1-2 days Time of Disposition: 12:38
--- NOTE | 2024-05-28 10:47 | XR ---
EXAMINATION TYPE: XR chest 2V DATE OF EXAM: 05/28/2024 COMPARISON: 12/29/2018 HISTORY: Fever TECHNIQUE: Frontal and lateral views of the chest are obtained. FINDINGS: There is no focal air space opacity, pleural effusion, or pneumothorax seen. The cardiac silhouette size is within normal limits. The osseous structures are intact. IMPRESSION: No acute cardiopulmonary process. [facility], , 05/28/2024 10:44 AM
[2024-05-28 11:25] LABS: Appearance,Urine Cloudy (Clear); Bilirubin,Urine Negative (Negative); Blood,Urine Small (Negative); Color,Urine Yellow; Glucose,Urine (UA) Negative (Negative); Ketones,Urine Negative (Negative); Leukocyte Esterase,Urine Large (Negative); Mucus,Urine Rare /hpf; Nitrite,Urine Positive (Negative); PH, Urine 6.5 (5.0-8.0); Protein,Urine 1+ (Negative); RBC,Urine 4 /hpf (0-5); Specific Gravity,Urine 1.019 (1.001-1.035); Squamous Epithelial Cell,Urine 2 /hpf (0-4); Urobilinogen,Urine <2.0 mg/dL (<2.0); WBC,Urine >182 /hpf (0-5)
--- NOTE | 2024-05-28 12:00 | CT ---
EXAMINATION TYPE: CT abdomen pelvis w con DATE OF EXAM: 05/28/2024 COMPARISON: 09/22/2021 HISTORY: Nausea, Vomiting and diarrhea CT DLP: 851.2 mGycm Automated exposure control for dose reduction was used. TECHNIQUE: Helical acquisition of images was performed from the lung bases through the pelvis. CONTRAST: Performed without Oral Contrast and with IV Contrast, patient injected with 100 ml mL of Isovue 370. FINDINGS: The lung bases are clear. The gallbladder is normal without distention, wall thickening, pericholecystic fluid or gallstones. T here is no biliary ductal dilatation. There is no focal mass or organomegaly involving the liver, pancreas, spleen or adrenal glands. There is moderate to marked left hydronephrosis and hydroureter down to the level of left UVJ where t here is an obstructing 9.4 mm calculus. The right kidney is unremarkable with no solid renal mass, ca lculus or hydronephrosis. The caliber of the abdominal aorta is normal as no retroperitoneal adenopathy or hemorrhage. The bowel loops are normal in caliber and there is no evidence of dilatation or obstruction. No infla mmatory changes are identified in the bowel wall or mesentery. There is no free intraperitoneal air or fluid. No pelvic mass, free fluid, abscess or adenopathy. The osseous structures and soft tissues are intact. IMPRESSION: Moderate to marked left hydronephrosis and hydroureter secondary to 9.4 mm obstructing calculus in th e left UVJ. [facility], , 05/28/2024 11:57 AM
[2024-05-28] MEDS: HYDROmorphone 0.5 MG/0.5 ML SYRINGE IVP STA (12:22)
[2024-05-28] MEDS ORDERED: NALOXONE 0.4 MG/ML 1 ML VIAL IV PRN (12:36)
[2024-05-28] MEDS: SODIUM CHLORIDE 0.9% 1,000 ML IV SCH ×2 (13:53→14:40)
[2024-05-28] MEDS: LEVOFLOXACIN 750MG-D5W PMX 750 MG in DEXTROSE/WATER 1 150ML.BAG IVPB STA (13:54)
[2024-05-28] MEDS: POTASSIUM CHLORIDE 20 MEQ in WATER FOR INJECTION 1 100ML.BAG IVPB STA (13:54)
[2024-05-28] MEDS: POTASSIUM CHLORIDE 10 MEQ in WATER FOR INJECTION 1 100ML.BAG IVPB STA ×4 (14:39→23:03)
[2024-05-28] MEDS: LEVOFLOXACIN 750MG-D5W PMX 750 MG in DEXTROSE/WATER 1 150ML.BAG IVPB SCH (14:41)
[2024-05-28] MEDS: fentaNYL (PF) 50 MCG/ML 2 ML AMP IVP STA (15:11)
[2024-05-28] MEDS: MIDAZOLAM 2 MG/2 ML VIAL IV ONE (15:14)
[2024-05-28] MEDS: ONDANSETRON 4 MG/2 ML VIAL IVP PRN (15:16)
[2024-05-28] MEDS: DEXAMETHASONE SOD PHOSPHATE 4 MG/ML 1 ML VIAL IVP STA (15:17)
[2024-05-28] MEDS: IV FLUID CONTINUATION 900 ML IV ONE (15:25)
--- NOTE | 2024-05-28 15:44 | P.GSCN ---
History of Present Illness Consult date: 05/28/24 Reason for Consult: Left ureteral stone History of present illness: This is a 25-year-old female presented to the hospital with fevers and abdominal pain, underwent a CT abdomen pelvis in the ER which showed evidence of 9 mm left-sided distal stone, patient was febrile at 101.9 and tachycardic on presentation. Her urinalysis was concerning for UTI. She on evaluation she is having intractable pain associated with nausea secondary to stone, also complaining of bladder pressure and dysuria. No previous known history of kidney stones or any previous urological surgeries. CT was significant for a 9 mm left-sided distal stone with hydronephrosis Review of Systems - Constitutional Reports chills, Reports fever, Reports weakness - Cardiovascular Denies chest pain, Denies shortness of breath - Gastrointestinal Reports abdominal pain, Denies nausea, Denies vomiting - Genitourinary Genitourinary: Reports dysuria, Reports flank pain - Neurological Denies headaches, Denies syncope Past Medical History Past Medical History: Asthma Additional Past Medical History / Comment(s): IBS, orthostatic hypertension, borderline diabetic, endometriosis History of Any Multi-Drug Resistant Organisms: None Reported Past Surgical History: Adenoidectomy, Tonsillectomy Additional Past Surgical History / Comment(s): Endometriosis laproscopic surgery on 09/19/21 Past Anesthesia/Blood Transfusion Reactions: No Reported Reaction Past Psychological History: Anxiety, Depression Smoking Status: Current every day smoker Past Alcohol Use History: None Reported Past Drug Use History: Marijuana Medications and Allergies Home Medications Medication Instructions Recorded Confirmed Type Ibuprofen [Motrin] 800 mg PO TID PRN 05/28/24 05/28/24 History Nystatin [Nystatin Oral Susp] 500,000 unit PO QID 05/28/24 05/28/24 History Allergies Allergy/AdvReac Type Severity Reaction Status Date / Time adhesive tape Allergy Rash/Hives Verified 05/28/24 15:19 amoxicillin Allergy Rash/Hives Verified 05/28/24 15:19 cephalexin [From Keflex] Allergy Rash/Hives Verified 05/28/24 15:19 Penicillins Allergy Rash/Hives Verified 05/28/24 15:19 morphine AdvReac Rapid Verified 05/28/24 15:19 Heart Rate Surgical - Exam Vital Signs Temp Pulse Resp BP Pulse Ox 101.5 F H 108 H 18 97/57 98 05/28/24 08:46 10/03/24 08:46 05/28/24 08:46 05/28/24 08:46 05/28/24 08:46 - General moderate distress, moderate pain - Eyes normal ocular movement, no pale - ENT normal nares, normal mucosa - Respiratory normal expansion, normal respiratory effort - Abdomen Abdomen: soft, non tender - Psychiatric oriented to time, oriented to person, oriented to place Results - Labs 05/28/24 09:06 05/28/24 09:06 Abnormal Lab Results - Last 24 Hours (Table) 05/28/24 05/28/24 05/28/24 Range/Units 09:06 09:06 11:07 WBC 25.2 H (3.8-10.6) k/uL Neutrophils # 23.5 H (1.3-7.7) k/uL Lymphocytes # 0.7 L (1.0-4.8) k/uL Potassium 2.8 L (3.5-5.1) mmol/L Chloride 108 H (98-107) mmol/L Glucose 113 H (74-99) mg/dL Total Bilirubin 1.5 H (0.2-1.3) mg/dL Urine Appearance Cloudy H (Clear) Urine Protein 1+ H (Negative) Urine Blood Small H (Negative) Urine Nitrite Positive H (Negative) Ur Leukocyte Esterase Large H (Negative) Urine WBC >182 H (0-5) /hpf Urine WBC Clumps Many H (None) /hpf Urine Mucus Rare H (None) /hpf Diabetes panel 05/28/24 Range/Units 09:06 Sodium 139 (137-145) mmol/L Potassium 2.8 L (3.5-5.1) mmol/L Chloride 108 H (98-107) mmol/L Carbon Dioxide 22 (22-30) mmol/L BUN 12 (7-17) mg/dL Creatinine 0.66 (0.52-1.04) mg/dL Glucose 113 H (74-99) mg/dL Calcium 9.2 (8.4-10.2) mg/dL AST 17 (14-36) U/L ALT 13 (4-34) U/L Alkaline Phosphatase 84 (38-126) U/L Total Protein 6.6 (6.3-8.2) g/dL Albumin 3.9 (3.5-5.0) g/dL Calcium panel 05/28/24 Range/Units 09:06 Calcium 9.2 (8.4-10.2) mg/dL Albumin 3.9 (3.5-5.0) g/dL Pituitary panel 05/28/24 Range/Units 09:06 Sodium 139 (137-145) mmol/L Potassium 2.8 L (3.5-5.1) mmol/L Chloride 108 H (98-107) mmol/L Carbon Dioxide 22 (22-30) mmol/L BUN 12 (7-17) mg/dL Creatinine 0.66 (0.52-1.04) mg/dL Glucose 113 H (74-99) mg/dL Calcium 9.2 (8.4-10.2) mg/dL Adrenal panel 05/28/24 Range/Units 09:06 Sodium 139 (137-145) mmol/L Potassium 2.8 L (3.5-5.1) mmol/L Chloride 108 H (98-107) mmol/L Carbon Dioxide 22 (22-30) mmol/L BUN 12 (7-17) mg/dL Creatinine 0.66 (0.52-1.04) mg/dL Glucose 113 H (74-99) mg/dL Calcium 9.2 (8.4-10.2) mg/dL Total Bilirubin 1.5 H (0.2-1.3) mg/dL AST 17 (14-36) U/L ALT 13 (4-34) U/L Alkaline Phosphatase 84 (38-126) U/L Total Protein 6.6 (6.3-8.2) g/dL Albumin 3.9 (3.5-5.0) g/dL Assessment and Plan Assessment: 24-year-old female with history of 9 mm left-sided distal stone, patient is septic on presentation. Discussed with her given the sepsis and the obstructing stone we will emergently proceed with a stent insertion. Risk benefit and rationale was discussed with her in detail. Discussed she will eventually require left-sided ureteroscopy with holmium laser and stent removal as an outpatient once sepsis resolves -OR for cystoscopy and a left stent insertion
[2024-05-28] MEDS ORDERED: HYDROmorphone (PF) 1 MG/ML ONE (16:08)
[2024-05-28] MEDS ORDERED: MIDAZOLAM 2 MG/2 ML VIAL ONE (16:08)
[2024-05-28] MEDS ORDERED: KETAMINE HCL IN 0.9 % NACL 50 MG/5 ML SYRINGE ONE (16:08)
[2024-05-28] MEDS ORDERED: PROPOFOL 10 MG/ML 20 ML VIAL IV ONE (16:08)
[2024-05-28] MEDS ORDERED: fentaNYL (PF) 50 MCG/ML 2 ML AMP ONE (16:08)
[2024-05-28] MEDS: SODIUM CHLORIDE 0.9% 1,000 ML IV ONE ×2 (16:33→17:52)
--- NOTE | 2024-05-28 16:42 | P.OP ---
Date of Procedure: 05/28/24 Preoperative Diagnosis: Left ureteral stone, sepsis Postoperative Diagnosis: Same Procedure(s) Performed: Cystoscopy and a left ureteroscopy, stent insertion Implants: 6 [place] by 24 cm stent in the left ureter Anesthesia: MAC Surgeon: Kenan Ocasio Estimated Blood Loss (ml): 1 Pathology: none sent Condition: stable Disposition: PACU Indications for Procedure: This is a 24-year-old female with a history of a 9 mm left-sided distal stone, patient is septic secondary to her stone. Discussed with her given this finding I do recommend proceeding with a stent insertion. Risk benefit and rationale of surgery was discussed in detail Description of Procedure: Patient brought the operating room, sedation was induced. She was prepped and draped in sterile fashion and placed in a dorsolithotomy position. Cystoscopy with a 22 [place] sheath was inserted per urethra, brief cystoscopy was performed showed no abnormality within the bladder. Attention was then carried to the left ureteral orifice, I attempted to navigate a sensor and a Glidewire past the stone, but the stone was completely impacted, I was unable to advance the wire past the stone. At this time a semirigid ureteroscope was inserted per urethra and advanced up the left ureteral orifice, a stone was encountered and was completely occluding the ureter, I was able to navigate a sensor wire across the stone and into the kidney. At this time the sensor wire was backloaded over the cystoscope.next a ureteral stent was passed over the wire, the proximal curl was realized on fluoroscopy and the distal curl was visualized using cystoscope. Cloudy urine drained from the left collecting system. the bladder was emptied at the end of the case. Patient tolerated procedure well was taken recovery in stable condition
[2024-05-28] MEDS: ALBUMIN HUMAN 5% 250 ML in EMPTY BAG 1 BAG IVPB STA (17:10)
[2024-05-28] MEDS: HYDROmorphone 0.5 MG/0.5 ML SYRINGE IVP PRN (18:34)
[2024-05-28] MEDS: ONDANSETRON 4 MG/2 ML VIAL IVP STA (18:37)
--- NOTE | 2024-05-28 22:29 | P.HPIM ---
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 Patient states that she has been having similar for the past 2 to 3 days and worsened last night. Pain is mainly in the left flank region sitter Tylenol Motrin with no relief and also had subjective fevers at home. Otherwise denies any dysuria or hematuria. Denies any sick contacts. Patient was brought to the hospital by EMS. On admission heart rate 101 respiration 18 pulse ox 98% on room air blood pressure 97/57 9 Tmax 101.6 Chest x-ray showed no acute cardiopulmonary process. CT of the abdomen pelvis showed a moderate to marked left hydronephrosis and hydroureter secondary to 9.4 mm obstructing calculus in the left UVJ. Laboratory data showed WBC 25.2 hemoglobin 12.3 and platelets 259 sodium 139 potassium 2.8 chloride 108 BUN 12 and creatinine 0.6 and lactic acid 2.2 total bili 1.5 liver enzymes not elevated urinalysis showed cloudy with small blood nitrite positive large leukocyte esterase with elevated WBCs. Review of Systems Constitutional: Patient does have fever and chills at home. No generalized weakness or weight loss. Abdomen: Patient complains of nausea. Denied vomiting. No diarrhea. Patient does have left sided abdominal pain. Cardiovascular: Patient denies any chest pain or short of breath no palpitation s. Respiratory: patient denied any cough or sputum production. No shortness of breath Neurologic: Patient denied any numbness or tingling. no headache. Musculoskeletal: Patient denies any complaints of joint swelling or deformity. Skin: Negative Psychiatric: Negative Endocrine: No heat or cold intolerance. No recent weight gain. Genitourinary: No dysuria or hematuria. Left flank pain All other 14 point ROS negative except the above Past Medical History Past Medical History: Asthma Additional Past Medical History / Comment(s): IBS, orthostatic hypertension, borderline diabetic, endometriosis History of Any Multi-Drug Resistant Organisms: None Reported Past Surgical History: Adenoidectomy, Tonsillectomy Additional Past Surgical History / Comment(s): Endometriosis laproscopic surgery on 09/19/21 Past Anesthesia/Blood Transfusion Reactions: No Reported Reaction Past Psychological History: Anxiety, Depression Smoking Status: Current every day smoker Past Alcohol Use History: None Reported Past Drug Use History: Marijuana Medications and Allergies Home Medications Medication Instructions Recorded Confirmed Type Ibuprofen [Motrin] 800 mg PO TID PRN 05/28/24 05/28/24 History Nystatin [Nystatin Oral Susp] 500,000 unit PO QID 05/28/24 05/28/24 History Allergies Allergy/AdvReac Type Severity Reaction Status Date / Time adhesive tape Allergy Rash/Hives Verified 05/28/24 15:19 amoxicillin Allergy Rash/Hives Verified 05/28/24 15:19 cephalexin [From Keflex] Allergy Rash/Hives Verified 05/28/24 15:19 Penicillins Allergy Rash/Hives Verified 05/28/24 15:19 morphine AdvReac Rapid Verified 05/28/24 15:19 Heart Rate Physical Exam Vitals: Vital Signs Temp Pulse Pulse Resp BP BP Pulse Ox 05/28/24 17:47 101 H 16 107/55 96 05/28/24 17:31 99 16 106/57 99 05/28/24 17:15 100 16 108/53 99 05/28/24 17:03 96 16 100/46 98 05/28/24 16:48 85 16 80/35 100 05/28/24 15:37 101 H 16 99 05/28/24 15:24 100 16 117/58 99 05/28/24 15:19 99.6 F 103 H 16 123/57 98 05/28/24 14:41 99.4 F 99 19 118/82 05/28/24 12:21 98.5 F 107 H 20 99/67 99 05/28/24 11:31 99.3 F 05/28/24 09:40 101.6 F H 106 H 18 99 05/28/24 08:46 101.5 F H 108 H 18 97/57 98 Intake and Output 05/28/24 05/28/24 05/28/24 06:59 14:59 22:59 Intake Total 1900 Output Total 151 Balance 1749 Intake: IV 1900 Output: Urine 150 Estimated Blood Loss 1 Other: # Voids 1 Weight 81.647 kg 81.647 kg PHYSICAL EXAMINATION: Patient is lying in the bed comfortably, mild distress due to pain, awake alert and oriented.. HEENT: Normocephalic. Neck is supple. Pupils reactive. Nostrils clear. Oral cavity is moist. Neck reveals no JVD, carotid bruits, or thyromegaly. CHEST EXAMINATION: Trachea is central. Symmetrical expansion. Lung dodson clear to auscultation and percussion. CARDIAC: Normal S1, S2 with no gallops. No murmurs ABDOMEN: Soft. Bowel sounds normal. Left flank tenderness. No organomegaly. No abdominal bruits. Extremities: reveal no edema. No clubbing or cyanosis Neurologically awake, alert, oriented x3 with well-coordinated movements. No focal deficits noted Skin: No rash or skin lesions. Psychiatric: Coperative. Nonsuicidal Musculoskeletal: No joint swelling or deformity. Normal range of motion. Results CBC & Chem 7: 05/28/24 09:06 05/28/24 09:06 Labs: Abnormal Lab Results - Last 24 Hours (Table) 05/28/24 05/28/24 05/28/24 Range/Units 09:06 09:06 11:07 WBC 25.2 H (3.8-10.6) k/uL Neutrophils # 23.5 H (1.3-7.7) k/uL Lymphocytes # 0.7 L (1.0-4.8) k/uL Potassium 2.8 L (3.5-5.1) mmol/L Chloride 108 H (98-107) mmol/L Glucose 113 H (74-99) mg/dL Plasma Lactic Acid Jose A (0.7-2.0) mmol/L Total Bilirubin 1.5 H (0.2-1.3) mg/dL Urine Appearance Cloudy H (Clear) Urine Protein 1+ H (Negative) Urine Blood Small H (Negative) Urine Nitrite Positive H (Negative) Ur Leukocyte Esterase Large H (Negative) Urine WBC >182 H (0-5) /hpf Urine WBC Clumps Many H (None) /hpf Urine Mucus Rare H (None) /hpf 05/28/24 Range/Units 14:59 WBC (3.8-10.6) k/uL Neutrophils # (1.3-7.7) k/uL Lymphocytes # (1.0-4.8) k/uL Potassium (3.5-5.1) mmol/L Chloride (98-107) mmol/L Glucose (74-99) mg/dL Plasma Lactic Acid Jose A 2.2 H* (0.7-2.0) mmol/L Total Bilirubin (0.2-1.3) mg/dL Urine Appearance (Clear) Urine Protein (Negative) Urine Blood (Negative) Urine Nitrite (Negative) Ur Leukocyte Esterase (Negative) Urine WBC (0-5) /hpf Urine WBC Clumps (None) /hpf Urine Mucus (None) /hpf Thrombosis Risk Factor Assmnt - DVT/VTE Prophylaxis DVT/VTE Prophylaxis: Pharmacologic Prophylaxis ordered - Choose All That Apply Other Risk Factors: Yes Each Risk Factor Represents 2 Points: Major surgery Thrombosis Risk Factor Assessment Total Risk Factor Score: 2 Thrombosis Risk Factor Assessment Level: Low Risk Assessment and Plan Assessment: Left renal colic due to 9.4 mm obstructing calculus in the left UVJ along with marked left hydronephrosis and hydroureter. Acute pyelonephritis Sepsis secondary to above Suspected POTS syndrome currently workup in process IBS Borderline diabetes History of endometriosis Anxiety/depression and marijuana use DVT prophylaxis with heparin subcu Plan: Patient will be continued on IV hydration with normal saline. Continue with pain management with Dilaudid IV. Pain with antibiotics, Levaquin. Patient is allergic to amoxicillin and cephalexin. Follow-up urine culture and blood cultures. Urology was consulted and is planning for cystoscopy. Continue to follow closely. Time with Patient: Greater than 30
--- NOTE | 2024-05-28 23:54 | FL ---
EXAMINATION TYPE: FL guidance operating room DATE OF EXAM: 05/28/2024 5:01 PM COMPARISON: Pre Operative Images if available both CT/MRI or plain film CLINICAL INDICATION: Female, 24 years old with history of CYSTO WITH LEFT STENT PLACEMENT; TECHNIQUE: FL guidance operating room, multiple fluoroscopic images provided for procedure. Total fluoroscopy time: 5.5 seconds Total submitted images to PACS: 1 DAP: 0.2735 mGym2 Gycm2 uGym2 cGycm2 or equivalent. FINDINGS: Multiple intraoperative fluoroscopic images were taken resulting in ureteral stent placement with sup erior pigtail in appropriate position projecting over the renal pelvis. No immediate intraoperative c omplication. Multilevel degeneration changes throughout the spine. IMPRESSION: 1. No evidence for intraoperative complication. 2. Please see the operative/procedural note for further details. [facility], , 05/28/2024 11:52 PM
[2024-05-29] MEDS: HEPARIN SODIUM,PORCINE 5,000 UNIT/ML 1 ML VIAL SQ SCH (00:12)
[2024-05-29 04:29] LABS: Basophils % (A) 0 %; Eosinophils % (A) 0 %; HCT 29.2 % (34.0-46.0); Lymphocytes % (A) 5 %; MCH 29.9 pg (25.0-35.0); MCHC 33.7 g/dL (31.0-37.0); MCV 88.8 fL (80.0-100.0); Mean Platelet Volume 9.8; Monocytes # (A) 0.5 k/uL (0-1.0); Monocytes % (A) 3 %; Neutrophils # (A) 16.9 k/uL (1.3-7.7); Neutrophils % (A) 91 %; Platelet Count 188 k/uL (150-450); RBC 3.29 m/uL (3.80-5.40); RDW 12.4 % (11.5-15.5); WBC 18.5 k/uL (3.8-10.6)
[2024-05-29] MEDS: KETOROLAC 15 MG/ML 1 ML VIAL IVP PRN (04:30)
[2024-05-29 04:42] LABS: HGB 9.8 gm/dL (11.4-16.0)
[2024-05-29 04:51] LABS: African American GFR (CKD) >90 (>60 ml/min/1.73 sqM); Anion Gap 3 mmol/L; Blood Urea Nitrogen 14 mg/dL (7-17); Calcium 8.1 mg/dL (8.4-10.2); Carbon Dioxide 22 mmol/L (22-30); Chloride 113 mmol/L (98-107); Glucose 110 mg/dL (74-99); Non-African American GFR(CKD) >90 (>60 ml/min/1.73 sqM); Potassium 3.4 mmol/L (3.5-5.1); Sodium 138 mmol/L (137-145)
--- NOTE | 2024-05-29 08:08 | P.PN ---
Subjective Progress Note Date: 05/29/24 24 yo female who underwent a cysto with stent placement by Dr isha antonio for an obstructing 9 mm distal left ureteral stone. SHe had a uti with sepsis, pyonephrosis.. Her temp is down and her vss are better. She is feeling better. However she is very anxious. Objective - Vital Signs Vital signs: Vital Signs Temp 97.9 F 05/28/24 21:05 Pulse 87 05/29/24 03:27 Resp 20 05/29/24 03:27 BP 109/64 05/29/24 03:27 Pulse Ox 99 05/29/24 03:27 FiO2 Intake & Output 05/28/24 05/28/24 05/29/24 06:59 18:59 06:59 Intake Total 1900 480 Output Total 151 Balance 1749 480 Weight 81.647 kg 81.3 kg Intake: IV 1900 Oral 480 Output: Urine 150 Estimated Blood Loss 1 Other: Voiding Method Toilet # Voids 1 - Labs CBC & Chem 7: 05/29/24 04:14 05/29/24 04:14 Labs: Abnormal Lab Results - Last 24 Hours (Table) 05/28/24 05/28/24 05/28/24 Range/Units 09:06 09:06 11:07 WBC 25.2 H (3.8-10.6) k/uL RBC (3.80-5.40) m/uL Hgb (11.4-16.0) gm/dL Hct (34.0-46.0) % Neutrophils # 23.5 H (1.3-7.7) k/uL Lymphocytes # 0.7 L (1.0-4.8) k/uL Potassium 2.8 L (3.5-5.1) mmol/L Chloride 108 H (98-107) mmol/L Glucose 113 H (74-99) mg/dL Plasma Lactic Acid Jose A (0.7-2.0) mmol/L Calcium (8.4-10.2) mg/dL Total Bilirubin 1.5 H (0.2-1.3) mg/dL Urine Appearance Cloudy H (Clear) Urine Protein 1+ H (Negative) Urine Blood Small H (Negative) Urine Nitrite Positive H (Negative) Ur Leukocyte Esterase Large H (Negative) Urine WBC >182 H (0-5) /hpf Urine WBC Clumps Many H (None) /hpf Urine Mucus Rare H (None) /hpf 05/28/24 05/29/24 05/29/24 Range/Units 14:59 04:14 04:14 WBC 18.5 H (3.8-10.6) k/uL RBC 3.29 L (3.80-5.40) m/uL Hgb 9.8 L D (11.4-16.0) gm/dL Hct 29.2 L (34.0-46.0) % Neutrophils # 16.9 H (1.3-7.7) k/uL Lymphocytes # (1.0-4.8) k/uL Potassium 3.4 L (3.5-5.1) mmol/L Chloride 113 H (98-107) mmol/L Glucose 110 H (74-99) mg/dL Plasma Lactic Acid Jose A 2.2 H* (0.7-2.0) mmol/L Calcium 8.1 L (8.4-10.2) mg/dL Total Bilirubin (0.2-1.3) mg/dL Urine Appearance (Clear) Urine Protein (Negative) Urine Blood (Negative) Urine Nitrite (Negative) Ur Leukocyte Esterase (Negative) Urine WBC (0-5) /hpf Urine WBC Clumps (None) /hpf Urine Mucus (None) /hpf Assessment and Plan Assessment: Impression: uti with sepsis, pyonephrosis, left s/p stent placement Plan: c/w antibiotics pending cultures. will need eventual stone and stent removal. This has been explained to the patient. She seems to understand better and is a little less anxious as result of our discussion. From a urologic standpoint she can be discharged home and placed on antibiotics appropriately. She should follow-up in our office.
[2024-05-29] MEDS: oxyBUTYnin chloride 5 MG TAB PO PRN (08:24)
[2024-05-29] MEDS: NICOTINE 21MG/24HR PATCH TRANSDERM SCH (08:24)
[2024-05-29] MEDS: MORPHINE SULFATE 2 MG/ML SYRINGE IVP PRN (11:16)
[2024-05-29] MEDS: POTASSIUM CHLORIDE ER 20 MEQ TAB.ER PO STA (12:35)
[2024-05-29] MEDS: ACETAMINOPHEN TAB 325 MG TAB PO PRN (12:41)
[2024-05-29] MEDS: ALPRAZolam 0.25 MG TAB PO PRN (14:32)
[2024-05-29] MEDS: NYSTATIN 100,000 UNIT/ML SUSP 500,000 UNIT/5 ML CUP PO SCH (17:14)
[2024-05-29] MEDS: AZTREONAM 2 GM in SODIUM CHLORIDE 0.9% 100 ML IVPB SCH ×2 (19:51→20:56)
[2024-05-29 20:17] LABS: Appearance,Urine Clear (Clear); Bilirubin,Urine Negative (Negative); Blood,Urine Large (Negative); Color,Urine Colorless; Glucose,Urine (UA) Negative (Negative); Ketones,Urine Negative (Negative); Leukocyte Esterase,Urine Trace (Negative); Nitrite,Urine Negative (Negative); Protein,Urine Negative (Negative); Specific Gravity,Urine 1.001 (1.001-1.035); Urobilinogen,Urine <2.0 mg/dL (<2.0); WBC,Urine 1 /hpf (0-5)
--- NOTE | 2024-05-29 22:52 | P.CONS ---
History of Present Illness - Reason for Consult Consult date: 05/29/24 Septic/pyelonephritis Requesting physician: Luna Jacobsen - Chief Complaint Left flank pain and vomiting x few days - History of Present Illness Patient is a 24-year-old female with a past medical history significant for asthma IBS endometriosis presenting to the hospital concerning for left flank area pain that apparently has been going on for about 3 to 4 days before presentation to the hospital patient was describing the pain to be sharp almost 10 out of 10 in severity without any radiation however the patient did have significant vomiting associated with it along with burning and frequency of urine with the same with the patient has been brought into the hospital on arrival to the ER the patient did have a fever of 101.5 degrees for night patient was tachycardic but not hypotensive or hypoxic patient did have a white count of 25.2 repeat is 18.5 with a left shift creatinine has been normal urine has been positive cultures currently pending blood cultures are pending patient did have a abdominal pelvis CT moderate to marked left hydronephrosis and hydroureter has been evaluated by urology the patient is status post cystoscopy and left ureteral stent placement patient has been treated with Levaquin because of her penicillin and Keflex allergy infectious disease was consulted today because of her persistent fever and further management of antibiotic therapy Review of Systems Positive point and negatives has been mentioned in the HPI, complete review of systems was performed and all other systems are negative Past Medical History Past Medical History: Asthma Additional Past Medical History / Comment(s): IBS, orthostatic hypertension, borderline diabetic, endometriosis History of Any Multi-Drug Resistant Organisms: None Reported Past Surgical History: Adenoidectomy, Tonsillectomy Additional Past Surgical History / Comment(s): Endometriosis laproscopic surgery on 09/19/21 Past Anesthesia/Blood Transfusion Reactions: No Reported Reaction Past Psychological History: Anxiety, Depression Smoking Status: Current every day smoker Past Alcohol Use History: None Reported Past Drug Use History: Marijuana Medications and Allergies Home Medications Medication Instructions Recorded Confirmed Type Ibuprofen [Motrin] 800 mg PO TID PRN 05/28/24 05/28/24 History Nystatin [Nystatin Oral Susp] 500,000 unit PO QID 05/28/24 05/28/24 History Allergies Allergy/AdvReac Type Severity Reaction Status Date / Time adhesive tape Allergy Rash/Hives Verified 05/28/24 15:19 amoxicillin Allergy Rash/Hives Verified 05/28/24 15:19 cephalexin [From Keflex] Allergy Rash/Hives Verified 05/28/24 15:19 Penicillins Allergy Rash/Hives Verified 05/28/24 15:19 morphine AdvReac Rapid Verified 05/28/24 15:19 Heart Rate Physical Exam Vitals: Vital Signs Temp Pulse Resp BP Pulse Ox 05/29/24 13:20 99.2 F 87 16 108/76 100 05/29/24 11:00 100.6 F H 99 16 103/72 100 05/29/24 10:31 102.3 F H 05/29/24 07:39 98.7 F 76 16 105/68 99 05/29/24 03:27 87 20 109/64 99 05/28/24 23:08 92 18 101/63 99 05/28/24 21:05 97.9 F 80 18 95/60 98 05/28/24 20:06 97.9 F 81 18 95/62 98 05/28/24 17:47 101 H 16 107/55 96 05/28/24 17:31 99 16 106/57 99 05/28/24 17:15 100 16 108/53 99 05/28/24 17:03 96 16 100/46 98 05/28/24 16:48 85 16 80/35 100 05/28/24 15:37 101 H 16 99 05/28/24 15:24 100 16 117/58 99 05/28/24 15:19 99.6 F 103 H 16 123/57 98 Intake and Output 05/28/24 05/29/24 05/29/24 22:59 06:59 14:59 Intake Total 2380 1200 Output Total 151 Balance 2229 1200 Intake: IV 1900 Oral 480 1200 Output: Urine 150 Estimated Blood Loss 1 Other: Voiding Method Toilet Toilet # Voids 1 Weight 81.647 kg 81.3 kg GENERAL DESCRIPTION: Middle-aged male lying in bed, no distress. No tachypnea or accessory muscle of respiration use. HEENT: Shows Pallor , no scleral icterus. Oral mucous membrane is dry. No phary ngeal erythema coating on the tongue NECK: Trachea central, no thyromegaly. LUNGS: Unlabored breathing. Clear to auscultation anteriorly. No wheeze or crackle. HEART: S1, S2, regular rate and rhythm. No loud murmur ABDOMEN: Soft, no tenderness , guarding or rigidity, no organomegaly EXTREMITIES: No edema of feet. SKIN: No rash, no masses palpable. NEUROLOGICAL: The patient is awake, alert, oriented x3, mood and affect normal. Results CBC & Chem 7: 05/29/24 04:14 05/29/24 04:14 Labs: Abnormal Lab Results - Last 24 Hours (Table) 05/28/24 05/29/24 05/29/24 Range/Units 14:59 04:14 04:14 WBC 18.5 H (3.8-10.6) k/uL RBC 3.29 L (3.80-5.40) m/uL Hgb 9.8 L D (11.4-16.0) gm/dL Hct 29.2 L (34.0-46.0) % Neutrophils # 16.9 H (1.3-7.7) k/uL Potassium 3.4 L (3.5-5.1) mmol/L Chloride 113 H (98-107) mmol/L Glucose 110 H (74-99) mg/dL Plasma Lactic Acid Jose A 2.2 H* (0.7-2.0) mmol/L Calcium 8.1 L (8.4-10.2) mg/dL Assessment and Plan (1) Sepsis Current Visit: Yes Status: Acute Code(s): A41.9 - SEPSIS, UNSPECIFIED ORGANISM SNOMED Code(s): 63742762 (2) Pyelonephritis Current Visit: Yes Status: Acute Code(s): N12 - TUBULO-INTERSTITIAL NEPHRITIS, NOT SPCF ACUTE OR CHRONIC SNOMED Code(s): 26986668 (3) Allergy to multiple antibiotics Current Visit: Yes Status: Acute Code(s): Z88.1 - ALLERGY STATUS TO OTHER ANTIBIOTIC AGENTS SNOMED Code(s): 174715865 Plan: 1patient presented to hospital with sepsis in this patient who did have fever tachycardia elevated white count source is complicated UTI in this patient who did have left-sided hydronephrosis/hydroureter requiring cystoscopy and left ureteral stent placement. 2patient with multiple antibiotic ALLERGIES that would limit the number of antibiotic safe to use. 3with persistent fever despite being on Levaquin concern for possible Levaquin resistant pathogen 4-we will discontinue Levaquin 5-start the patient on Azactam 2 g every 8 hours while waiting for the culture to finalize We will follow on clinical condition and cultures to further adjust medication if needed Thank you for this consultation we will follow the patient along with you Dictation was produced using [employer] dictation software. please excuse any grammatical, word or spelling errors. Time with Patient: Greater than 30
--- NOTE | 2024-05-30 00:38 | P.PN ---
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 Patient states that she has been having similar for the past 2 to 3 days and worsened last night. Pain is mainly in the left flank region sitter Tylenol Motrin with no relief and also had subjective fevers at home. Otherwise denies any dysuria or hematuria. Denies any sick contacts. Patient was brought to the hospital by EMS. On admission heart rate 101 respiration 18 pulse ox 98% on room air blood pressure 97/57 9 Tmax 101.6 Chest x-ray showed no acute cardiopulmonary process. CT of the abdomen pelvis showed a moderate to marked left hydronephrosis and hydroureter secondary to 9.4 mm obstructing calculus in the left UVJ. Laboratory data showed WBC 25.2 hemoglobin 12.3 and platelets 259 sodium 139 potassium 2.8 chloride 108 BUN 12 and creatinine 0.6 and lactic acid 2.2 total bili 1.5 liver enzymes not elevated urinalysis showed cloudy with small blood nitrite positive large leukocyte esterase with elevated WBCs. 05/29/2024 Patient is status post cystoscopy and left ureteroscopy stent insertion on 05/28/2024. Patient is lying in the bed. Awake alert and oriented x 3. Otherwise patient is anxious and states that she still having abdominal pain and also generalized body pains. Patient was febrile this morning with Tmax 102.3. Blood cultures negative so far. Patient is on Levaquin. Allergic to multiple antibiotics. ID was consulted for further evaluation. Laboratory data showed WBC down to 18.4 hemoglobin 9.8 and platelets 188 sodium 138 potassium 3.4 chloride 103 bicarb is 22 BUN 14 and creatinine 0.53 and blood sugar 110 and calcium 8.1. Current medications reviewed. Objective - Vital Signs Vital signs: Vital Signs Temp 100.6 F H 05/29/24 11:00 Pulse 99 05/29/24 11:00 Resp 16 05/29/24 11:00 BP 103/72 05/29/24 11:00 Pulse Ox 100 05/29/24 11:00 FiO2 Intake & Output 05/28/24 05/29/24 05/29/24 18:59 06:59 18:59 Intake Total 1900 480 0 Output Total 151 Balance 1749 480 0 Weight 81.647 kg 81.3 kg Intake: IV 1900 Oral 480 0 Output: Urine 150 Estimated Blood Loss 1 Other: Voiding Method Toilet Toilet # Voids 1 - Exam PHYSICAL EXAMINATION: Patient is lying in the bed comfortably, no acute distress, awake alert and oriented. Anxious.. HEENT: Normocephalic. Neck is supple. Pupils reactive. Nostrils clear. Oral cavity is moist. Neck reveals no JVD, carotid bruits, or thyromegaly. CHEST EXAMINATION: Trachea is central. Symmetrical expansion. Lung dodson clear to auscultation and percussion. CARDIAC: Normal S1, S2 with no gallops. No murmurs ABDOMEN: Soft. Bowel sounds normal. No organomegaly. No abdominal bruits. Extremities: reveal no edema. No clubbing or cyanosis Neurologically awake, alert, oriented x3 with well-coordinated movements. No focal deficits noted Skin: No rash or skin lesions. Psychiatric: Coperative. Nonsuicidal Musculoskeletal: No joint swelling or deformity. Normal range of motion. - Labs CBC & Chem 7: 05/29/24 04:14 05/29/24 04:14 Labs: Abnormal Lab Results - Last 24 Hours (Table) 05/28/24 05/29/24 05/29/24 Range/Units 14:59 04:14 04:14 WBC 18.5 H (3.8-10.6) k/uL RBC 3.29 L (3.80-5.40) m/uL Hgb 9.8 L D (11.4-16.0) gm/dL Hct 29.2 L (34.0-46.0) % Neutrophils # 16.9 H (1.3-7.7) k/uL Potassium 3.4 L (3.5-5.1) mmol/L Chloride 113 H (98-107) mmol/L Glucose 110 H (74-99) mg/dL Plasma Lactic Acid Jose A 2.2 H* (0.7-2.0) mmol/L Calcium 8.1 L (8.4-10.2) mg/dL Assessment and Plan Assessment: Left renal colic due to 9.4 mm obstructing calculus in the left UVJ along with marked left hydronephrosis and hydroureter. Status post cystoscopy and ureteral stent placement on 05/28/2024. Acute pyelonephritis Sepsis secondary to above Suspected POTS syndrome currently workup in process IBS Marijuana use disorder Borderline diabetes History of endometriosis Anxiety/depression DVT prophylaxis with heparin subcu Plan: Patient will be continued on IV hydration with normal saline. Continue with pain management with Dilaudid IV. Pain with antibiotics, Levaquin. Patient still febrile this morning. patient is allergic to amoxicillin and cephalexin. ID is consulted for further evaluation. Blood cultures negative so far.. Apparently urine culture was not sent prior to antibiotic regimen. Patient is status post cystoscopy and ureteral stent placement. Continue to follow closely. Time with Patient: Greater than 30
[2024-05-30] MEDS: SODIUM CHLORIDE 0.9% 1,000 ML IV SCH (03:54)
[2024-05-30 10:03] LABS: BUN/Creat Ratio 15.43 Ratio (12.00-20.00); Blood Urea Nitrogen 10.8 mg/dL (9.0-27.0); Calcium 7.8 mg/dL (8.7-10.3); Carbon Dioxide 22.3 mmol/L (21.6-31.8); Chloride 109 mmol/L (96-109); Glucose 106 mg/dL (70-110); Potassium 3.4 mmol/L (3.5-5.5); Sodium 140 mmol/L (135-145)
[2024-05-30 10:08] LABS: Basophils # (A) 0.01 X 10*3/uL (0.00-0.10); Basophils % (A) 0.2 %; Eosinophils # (A) 0.01 X 10*3/uL (0.04-0.35); Eosinophils % (A) 0.2 %; HGB 9.4 g/dL (12.0-15.0); Lymphocytes # (A) 0.65 X 10*3/uL (0.90-5.00); MCH 29.9 pg (27.0-32.0); MCHC 33.6 g/dL (32.0-37.0); MCV 89.2 FL (80.0-97.0); Mean Platelet Volume 12.6 FL (9.5-12.2); Monocytes # (A) 0.36 X 10*3/uL (0.20-1.00); Monocytes % (A) 5.6 %; NRBC Per 100 WBC 0 X 10*3/uL (0.00-0.01); Neutrophils # (A) 5.41 X 10*3/uL (1.80-7.70); Neutrophils % (A) 83.4 %; Platelet Count 144 X 10*3/uL (140-440); RBC 3.14 X 10*6/uL (4.10-5.20); WBC 6.48 X 10*3/uL (4.50-10.00)
--- NOTE | 2024-05-30 12:10 | P.CRDCN ---
History of Present Illness Consult date: 05/30/24 Reason for Consult (text): Abnormal EKG History of present illness: This is a 24-year-old female patient of Dr. Reyna with past medical history of palpitations, family history of HCM. Patient presented to the hospital on 05/28 and has been treated for sepsis and UTI status post cystoscopy with stent placement by urology on 05/28. We have been asked to evaluate the patient for abnormal EKG. Patient was last seen in the office on 05/08/2024 at that time patient was scheduled for monitor, tilt table test and echocardiogram. Echocardiogram is to evaluate for HCM and perform Valsalva LVOT gradient. Patient was being worked up for evaluation of post cardiomyopathy. Patient denies having any chest pain, no palpitations, no lightheadedness or dizziness. Blood pressure 99/66, heart rate 65, pulse ox 99% on room air EKG: Sinus rhythm with no acute ST-T wave changes Chest x-ray: No acute process Laboratory studies: WBC initially 25.2 now 6.4, hemoglobin 9.4, platelet count 144. Sodium 140, potassium 3.4, creatinine 0.7. Influenza A, influenza B, RSV, COVID-19 not detected. Home cardiac medications: None Review Of Systems: At the time of my exam: CONSTITUTIONAL: Denies fever or chills. HEENT: Denies blurred vision, vision changes, or eye pain. Denies hemoptysis CARDIOVASCULAR: Denies chest pain. Denies orthopnea. Denies PND. Denies palpitations RESPIRATORY: Denies shortness of breath. GASTROINTESTINAL: Denies abdominal pain. Denies nausea or vomiting. HEMATOLOGIC: Denies bleeding disorders. GENITOURINARY: Denies any blood in urine. SKIN: Denies puritis. Denies rash. Physical examination: Gen: This is a 24-year-old female in no acute distress VS: reviewed HEENT: Head is atraumatic, normocephalic. Pupils equal, round. Sclerae is anicteric. NECK: Supple. No JVD. LUNGS: Clear to auscultation. No wheezes or rhonchi. No intercostal retractions. HEART: Regular rate and rhythm. No murmur. ABDOMEN: Soft No tenderness. EXTREMITIES: No pedal edema. No calf tenderness. NEUROLOGICAL: Patient is awake, alert and oriented x3. Assessment: Sepsis, UTI, pyelonephritis status post left stent placement by urology Abnormal EKG ruled out Plan: Telemetry reviewed revealing differing morphology of the P wave for possible wandering pacemaker, no high degree of blockage, no indication for pacemaker. No need for echocardiogram as this is ordered in the office Patient is cleared for discharge from cardiology and may follow-up with Dr. Reyna and follow-up with outpatient testing as scheduled Cardiology will sign off this case and follow on an as-needed basis. Please reconsult for any new concerns. Thank you kindly for this consultation. Nurse practitioner note has been reviewed, I agree with documented findings and plan of care. Patient was seen and examined. Past Medical History Past Medical History: Asthma Additional Past Medical History / Comment(s): IBS, orthostatic hypertension, borderline diabetic, endometriosis History of Any Multi-Drug Resistant Organisms: None Reported Past Surgical History: Adenoidectomy, Tonsillectomy Additional Past Surgical History / Comment(s): Endometriosis laproscopic surgery on 09/19/21 Past Anesthesia/Blood Transfusion Reactions: No Reported Reaction Past Psychological History: Anxiety, Depression Smoking Status: Current every day smoker Past Alcohol Use History: None Reported Past Drug Use History: Marijuana Medications and Allergies Home Medications Medication Instructions Recorded Confirmed Type Ibuprofen [Motrin] 800 mg PO TID PRN 05/28/24 05/28/24 History Nystatin [Nystatin Oral Susp] 500,000 unit PO QID 05/28/24 05/28/24 History Allergies Allergy/AdvReac Type Severity Reaction Status Date / Time adhesive tape Allergy Rash/Hives Verified 05/28/24 15:19 amoxicillin Allergy Rash/Hives Verified 05/28/24 15:19 cephalexin [From Keflex] Allergy Rash/Hives Verified 05/28/24 15:19 Penicillins Allergy Rash/Hives Verified 05/28/24 15:19 morphine AdvReac Rapid Verified 05/28/24 15:19 Heart Rate Physical Exam Vitals: Vital Signs Temp Pulse Resp BP Pulse Ox 05/30/24 07:05 98.7 F 65 17 99/66 99 05/30/24 01:23 102.7 F H 101 H 17 105/59 98 05/29/24 19:23 99.7 F H 94 18 100/59 98 05/29/24 17:46 100.6 F H 110 H 20 111/71 99 05/29/24 13:20 99.2 F 87 16 108/76 100 05/29/24 11:00 100.6 F H 99 16 103/72 100 05/29/24 10:31 102.3 F H Intake and Output 05/29/24 05/30/24 05/30/24 22:59 06:59 14:59 Other: Voiding Method Toilet # Voids 0 2 Results 05/30/24 05:12 05/30/24 05:12 Current Medications Generic Name Dose Route Start Last Admin Trade Name Freq PRN Reason Stop Dose Admin Acetaminophen 650 mg 05/29/24 10:44 05/30/24 01:37 Acetaminophen Tab 325 Mg Tab PO 650 mg Q6HR PRN Administration Fever and/ or Pain Alprazolam 0.25 mg 05/29/24 13:49 05/29/24 14:32 Alprazolam 0.25 Mg Tab PO 0.25 mg BID PRN Administration Anxiety Heparin Sodium (Porcine) 5,000 unit 05/29/24 00:00 05/30/24 09:13 Heparin Sodium,Porcine 5,000 Unit/Ml 1 Ml Vial SQ 5,000 unit Q8HR MAYKEL Administration Aztreonam 2 gm/ Sodium 100 mls @ 33.3 mls/hr 05/29/24 20:00 05/30/24 03:52 Chloride IVPB 33.3 mls/hr Q8H MAYKEL Administration Protocol Sodium Chloride 1,000 mls @ 75 mls/hr 05/30/24 00:45 05/30/24 03:54 Saline 0.9% IV 75 mls/hr .[id number] MAYKEL Administration Ketorolac Tromethamine 15 mg 05/28/24 12:36 05/30/24 03:52 Ketorolac 15 Mg/Ml 1 Ml Vial IVP 05/31/24 12:37 15 mg Q6HR PRN Administration Moderate Pain (Scale 4 to 6) Morphine Sulfate 2 mg 05/29/24 10:45 05/30/24 09:13 Morphine Sulfate 2 Mg/Ml Syringe IVP 2 mg Q4HR PRN Administration Pain/Discomfort Naloxone HCl 0.2 mg 05/28/24 12:36 Naloxone 0.4 Mg/Ml 1 Ml Vial IV Q2M PRN Opioid Reversal Nicotine 1 patch 05/29/24 09:00 05/30/24 09:13 Nicotine 21mg/24hr Patch TRANSDERM 1 patch DAILY MAYKEL Administration Nystatin 500,000 unit 05/29/24 15:17 05/29/24 23:42 Nystatin 100,000 Unit/Ml Susp 500,000 Unit/5 Ml Cup PO 500,000 unit QID MAYKEL Administration Protocol Ondansetron HCl 4 mg 05/28/24 12:36 05/29/24 03:32 Ondansetron 4 Mg/2 Ml Vial IVP 4 mg Q8HR PRN Administration Nausea And Vomiting Oxybutynin Chloride 5 mg 05/29/24 08:08 05/29/24 19:50 Oxybutynin Chloride 5 Mg Tab PO 5 mg TID PRN Administration Pelvic Pain Intake and Output 05/29/24 05/30/24 05/30/24 22:59 06:59 14:59 Other: Voiding Method Toilet # Voids 0 2 05/29/24 04:14 05/29/24 04:14
[2024-05-30] MEDS: HYDROcodone/APAP 5-325MG 1 EACH TAB PO PRN (13:08)
--- NOTE | 2024-05-30 13:09 | P.PN ---
Subjective Progress Note Date: 05/30/24 24 yo female in the hospital with a uti with sepsis aggravated by an obstructing left ureteral stone. Dr Ocasio placed a left ureteral stent 05/28. She is feeling a little better but still anxious She still had temperature yesterday as exoected. Her wbc went from 25 k to 18k Objective - Vital Signs Vital signs: Vital Signs Temp 102.7 F H 05/30/24 01:23 Pulse 101 H 05/30/24 01:23 Resp 17 05/30/24 01:23 BP 105/59 05/30/24 01:23 Pulse Ox 98 05/30/24 01:23 FiO2 Intake & Output 05/29/24 05/30/24 05/30/24 18:59 06:59 18:59 Intake Total 1200 Balance 1200 Intake: Oral 1200 Other: Voiding Method Toilet Toilet # Voids 0 2 - Labs CBC & Chem 7: 05/30/24 05:12 05/30/24 05:12 Labs: Abnormal Lab Results - Last 24 Hours (Table) 05/29/24 Range/Units 19:55 Urine Blood Large H (Negative) Ur Leukocyte Esterase Trace H (Negative) Microbiology - Last 24 Hours (Table) 05/28/24 14:05 Blood Culture - Preliminary Blood Assessment and Plan Assessment: Impression. sp stent placement for a left ureteral stone with pyonephrosis Plan from a urologic standpoint there is nothing more to do this admission In a few weeks as an op she will need stone and stent removal
--- NOTE | 2024-05-30 13:16 | P.PN ---
Subjective Progress Note Date: 05/30/24 Principal diagnosis: Reason for follow-up is sepsis with complicated UTI Patient is a 24-year-old female with a past medical history significant for asthma IBS endometriosis presenting to the hospital concerning for left flank area patient did have left-sided hydronephrosis requiring left ureteral stent placement and sepsis associated with a complicated UTI did have multiple antibiotic allergies prompting this consultation. On today's evaluation that is 05/30/2024, Patient did spike a fever of 102.7 degree form hide after midnight however the patient is afebrile since then, patient denies having any chest pain shortness of breath or cough, the patient is breathing comfortably on room air, patient denies any worsening left-sided abdominal pain no diarrhea still complaining of some nausea but no vomiting. Patient white count normalized to 6.48, creatinine is 0.7 repeat UA is negative unfortunately urine culture were not done on admission Objective - Vital Signs Vital signs: Vital Signs Temp 98.7 F 05/30/24 07:05 Pulse 65 05/30/24 07:05 Resp 18 05/30/24 10:33 BP 99/66 05/30/24 07:05 Pulse Ox 99 05/30/24 07:05 FiO2 Intake & Output 05/29/24 05/30/24 05/30/24 18:59 06:59 18:59 Intake Total 1200 Balance 1200 Intake: Oral 1200 Other: Voiding Method Toilet Toilet Toilet # Voids 0 2 - Exam GENERAL DESCRIPTION: Young male lying in bed in no distress RESPIRATORY SYSTEM: Unlabored breathing , decreased breath sounds at bases HEART: S1 S2 regular rate and rhythm , ABDOMEN: Soft , no tenderness EXTREMITIES: No edema feet - Labs CBC & Chem 7: 05/30/24 05:12 05/30/24 05:12 Labs: Abnormal Lab Results - Last 24 Hours (Table) 05/29/24 05/30/24 05/30/24 Range/Units 19:55 05:12 05:12 RBC 3.14 L (4.10-5.20) X 10*6/uL Hgb 9.4 L (12.0-15.0) g/dL Hct 28.0 L (37.2-46.3) % MPV 12.6 H (9.5-12.2) FL Lymphocytes # 0.65 L (0.90-5.00) X 10*3/uL Eosinophils # 0.01 L (0.04-0.35) X 10*3/uL Potassium 3.4 L (3.5-5.5) mmol/L Calcium 7.8 L (8.7-10.3) mg/dL Urine Blood Large H (Negative) Ur Leukocyte Esterase Trace H (Negative) Microbiology - Last 24 Hours (Table) 05/28/24 14:05 Blood Culture - Preliminary Blood Assessment and Plan (1) Sepsis Current Visit: Yes Status: Acute Code(s): A41.9 - SEPSIS, UNSPECIFIED ORGANISM SNOMED Code(s): 56950645 (2) Pyelonephritis Current Visit: Yes Status: Acute Code(s): N12 - TUBULO-INTERSTITIAL NEPHRITIS, NOT SPCF ACUTE OR CHRONIC SNOMED Code(s): 45837418 (3) Allergy to multiple antibiotics Current Visit: Yes Status: Acute Code(s): Z88.1 - ALLERGY STATUS TO OTHER ANTIBIOTIC AGENTS SNOMED Code(s): 527330865 Plan: 1patient presented to hospital with sepsis in this patient who did have fever tachycardia elevated white count source is complicated UTI in this patient who did have left-sided hydronephrosis/hydroureter requiring cystoscopy and left ureteral stent placement. 2patient with multiple antibiotic ALLERGIES that would limit the number of antibiotic safe to use. 3patient antibiotic has been adjusted to Azactam 2 g every 8 hours unfo rtunately urine culture were not done on admission and the repeat UA is clear we will make discharge antibiotic choice difficult with no culture data and multiple antibiotic allergies Dictation was produced using [employer] dictation software. please excuse any grammatical, word or spelling errors. Time with Patient: Less than 30
--- NOTE | 2024-05-30 14:32 | P.PN ---
Subjective Progress Note Date: 05/30/24 Patient is a 24-year-old female with a known history of suspected postural orthostatic tachycardia syndrome, on finisher accordion and also scheduled for tilt table test, IBS, borderline diabetic, history of endometriosis, anxiety/depression currently everyday smoker and marijuana use presents to ER with complaints of nausea vomiting and abdominal pain and bodyaches. Patient states that she has been having similar for the past 2 to 3 days and worsened last night. Pain is mainly in the left flank region sitter Tylenol Motrin with no relief and also had subjective fevers at home. Otherwise denies any dysuria or hematuria. Denies any sick contacts. Patient was brought to the hospital by EMS. On admission heart rate 101 respiration 18 pulse ox 98% on room air blood pressure 97/57 9 Tmax 101.6 Chest x-ray showed no acute cardiopulmonary process. CT of the abdomen pelvis showed a moderate to marked left hydronephrosis and hydroureter secondary to 9.4 mm obstructing calculus in the left UVJ. Laboratory data showed WBC 25.2 hemoglobin 12.3 and platelets 259 sodium 139 potassium 2.8 chloride 108 BUN 12 and creatinine 0.6 and lactic acid 2.2 total bili 1.5 liver enzymes not elevated urinalysis showed cloudy with small blood nitrite positive large leukocyte esterase with elevated WBCs. 05/29/2024 Patient is status post cystoscopy and left ureteroscopy stent insertion on 05/28/2024. Patient is lying in the bed. Awake alert and oriented x 3. Otherwise patient is anxious and states that she still having abdominal pain and also generalized body pains. Patient was febrile this morning with Tmax 102.3. Blood cultures negative so far. Patient is on Levaquin. Allergic to multiple antibiotics. ID was consulted for further evaluation. Laboratory data showed WBC down to 18.4 hemoglobin 9.8 and platelets 188 sodium 138 potassium 3.4 chloride 103 bicarb is 22 BUN 14 and creatinine 0.53 and blood sugar 110 and calcium 8.1. Current medications reviewed. 05/30. Patient seen and examined. Patient had fevers overnight of 102.7. Still complaining of left-sided flank pain. Stated it is improved from before. Denies any hematuria. REVIEW OF SYSTEMS: CONSTITUTIONAL: As mentioned above CARDIOVASCULAR: No chest pain, no palpitations, no syncope. PULMONARY: No shortness of breath, no cough, GASTROINTESTINAL: No diarrhea, no nausea, no vomiting, no abdominal pain. NEUROLOGICAL: No headaches, no weakness, PHYSICAL EXAMINATION: GENERAL: The patient is alert and oriented x3, not in any acute distress. Well developed, well nourished. HEENT: Pupils are round and equally reacting to light. EOMI. No scleral icterus. No conjunctival pallor. Normocephalic, atraumatic. No pharyngeal erythema. No thyromegaly. CARDIOVASCULAR: S1 and S2 present. No murmurs, rubs, or gallops. PULMONARY: Chest is clear to auscultation, no wheezing or crackles. ABDOMEN: Soft, nontender, nondistended, normoactive bowel sounds. No palpable organomegaly. MUSCULOSKELETAL: No joint swelling or deformity. EXTREMITIES: No cyanosis, clubbing, or pedal edema. NEUROLOGICAL: Gross neurological examination did not reveal any focal deficits. SKIN: No rashes. Assessment and plan Left renal colic due to 9.4 mm obstructing calculus in the left UVJ along with marked left hydronephrosis and hydroureter. Status post cystoscopy and ureteral stent placement on 05/28/2024. Acute pyelonephritis Sepsis secondary to above Suspected POTS syndrome currently workup in process IBS Marijuana use disorder Borderline diabetes History of endometriosis Anxiety/depression Monitor vital signs Monitor CBC Monitor CMP status post cystoscopy and ureteral stent placement. Follow-up on blood culture follow-up urine culture Continue IV fluids Continue pain management Continue IV aztreonam ID following Urology following Labs and medication were reviewed.. Continue same treatment. Continue with symptomatic treatment. Resume home medication. Monitor labs and vitals. DVT and GI prophylaxis. Further recommendations as per clinical course of the patient Dictation was produced using [employer] dictation software. please excuse any grammatical, word or spelling errors. Objective - Vital Signs Vital signs: Vital Signs Temp 98.7 F 05/30/24 07:05 Pulse 65 05/30/24 07:05 Resp 17 05/30/24 07:05 BP 99/66 05/30/24 07:05 Pulse Ox 99 05/30/24 07:05 FiO2 Intake & Output 05/29/24 05/30/24 05/30/24 18:59 06:59 18:59 Intake Total 1200 Balance 1200 Intake: Oral 1200 Other: Voiding Method Toilet Toilet # Voids 0 2 - Labs CBC & Chem 7: 05/30/24 05:12 05/30/24 05:12 Labs: Abnormal Lab Results - Last 24 Hours (Table) 05/29/24 Range/Units 19:55 Urine Blood Large H (Negative) Ur Leukocyte Esterase Trace H (Negative) Microbiology - Last 24 Hours (Table) 05/28/24 14:05 Blood Culture - Preliminary Blood
[2024-05-31 09:13] LABS: HCT 28.9 % (37.2-46.3); HGB 9.8 g/dL (12.0-15.0); MCH 29.8 pg (27.0-32.0); MCHC 33.9 g/dL (32.0-37.0); MCV 87.8 FL (80.0-97.0); Mean Platelet Volume 12.3 FL (9.5-12.2); NRBC Per 100 WBC 0 X 10*3/uL (0.00-0.01); Platelet Count 157 X 10*3/uL (140-440); RBC 3.29 X 10*6/uL (4.10-5.20); RDW 12.7 % (11.5-14.5); WBC 3.92 X 10*3/uL (4.50-10.00)
[2024-05-31 09:51] LABS: Basophils # (A) 0.01 X 10*3/uL (0.00-0.10); Basophils % (A) 0.3 %; Eosinophils # (A) 0.07 X 10*3/uL (0.04-0.35); Eosinophils % (A) 1.8 %; Lymphocytes # (A) 1.16 X 10*3/uL (0.90-5.00); Lymphocytes % (A) 29.6 %; Monocytes # (A) 0.39 X 10*3/uL (0.20-1.00); Monocytes % (A) 9.9 %; Neutrophils # (A) 2.27 X 10*3/uL (1.80-7.70); Neutrophils % (A) 57.9 %; RBC Morphology Normal (Normal)
[2024-05-31 10:17] LABS: ALT 112 U/L (8-44); AST 170 U/L (13-35); Albumin 3.2 g/dL (3.8-4.9); Albumin/Globulin Ratio 1.52 Ratio (1.60-3.17); Alkaline Phosphatase 269 U/L (41-126); BUN/Creat Ratio 12.17 Ratio (12.00-20.00); Blood Urea Nitrogen 7.3 mg/dL (9.0-27.0); Calcium 7.9 mg/dL (8.7-10.3); Carbon Dioxide 23.7 mmol/L (21.6-31.8); Chloride 108 mmol/L (96-109); Globulin 2.1 g/dL (1.6-3.3); Glucose 91 mg/dL (70-110); Potassium 3.2 mmol/L (3.5-5.5); Sodium 141 mmol/L (135-145); Total Bilirubin 0.9 mg/dL (0.3-1.2); Total Protein 5.3 g/dL (6.2-8.2)
[2024-05-31] MEDS: POTASSIUM CHLORIDE ER 20 MEQ TAB.ER PO STA (12:54)
--- NOTE | 2024-05-31 13:59 | P.DS ---
Providers Date of admission: 05/28/24 12:44 Expected date of discharge: 05/31/24 Attending physician: Curtis Ponce Consults: 05/28/24 12:36 Consult Physician Urgent Consulting Provider: Geo Salinas Consult Reason/Comments: Ureterolithiasis Do you want consulting provider notified?: Already Contacted 05/29/24 14:46 Consult Physician Urgent Consulting Provider: Shandra Herrera Consult Reason/Comments: pyel? stone, fevers Do you want consulting provider notified?: Yes 05/30/24 07:17 Consult Physician Urgent Consulting Provider: Paul Low Consult Reason/Comments: abnormal ekg? sepsis Do you want consulting provider notified?: Yes Primary care physician: Reyes Watson [facility] Course: Discharge diagnoses; Left renal colic due to 9.4 mm obstructing calculus in the left UVJ along with marked left hydronephrosis and hydroureter. Status post cystoscopy and ureteral stent placement on 05/28/2024. Acute pyelonephritis Sepsis secondary to above Suspected POTS syndrome currently workup in process IBS Marijuana use disorder Borderline diabetes History of endometriosis Anxiety/depression Hospital course; Patient is a 24-year-old female with a known history of suspected postural orthostatic tachycardia syndrome, on psychiatric arnp and also scheduled for tilt table test, IBS, borderline diabetic, history of endometriosis, anxiety/depression currently everyday smoker and marijuana use presents to ER with complaints of nausea vomiting and abdominal pain and bodyaches. Patient states that she has been having similar for the past 2 to 3 days and worsened last night. Pain is mainly in the left flank region sitter Tylenol Motrin with no relief and also had subjective fevers at home. Otherwise denies any dysuria or hematuria. Denies any sick contacts. Patient was brought to the hospital by EMS. On admission heart rate 101 respiration 18 pulse ox 98% on room air blood pressure 97/57 9 Tmax 101.6 Chest x-ray showed no acute cardiopulmonary process. CT of the abdomen pelvis showed a moderate to marked left hydronephrosis and hydroureter secondary to 9.4 mm obstructing calculus in the left UVJ. Laboratory data showed WBC 25.2 hemoglobin 12.3 and platelets 259 sodium 139 potassium 2.8 chloride 108 BUN 12 and creatinine 0.6 and lactic acid 2.2 total bili 1.5 liver enzymes not elevated urinalysis showed cloudy with small blood nitrite positive large leukocyte esterase with elevated WBCs. 05/29/2024 Patient is status post cystoscopy and left ureteroscopy stent insertion on 05/28/2024. Patient is lying in the bed. Awake alert and oriented x 3. Otherwise patient is anxious and states that she still having abdominal pain and also generalized body pains. Patient was febrile this morning with Tmax 102.3. Blood cultures negative so far. Patient is on Levaquin. Allergic to multiple antibiotics. ID was consulted for further evaluation. Laboratory data showed WBC down to 18.4 hemoglobin 9.8 and platelets 188 sodium 138 potassium 3.4 chloride 103 bicarb is 22 BUN 14 and creatinine 0.53 and blood sugar 110 and calcium 8.1. Current medications reviewed. 05/30. Patient seen and examined. Patient had fevers overnight of 102.7. Still complaining of left-sided flank pain. Stated it is improved from before. Denies any hematuria. 05/31. Patient seen and examined. Patient has been afebrile overnight. Being discharged on oral Cipro for 10 days per ID recommendations PHYSICAL EXAMINATION: GENERAL: The patient is alert and oriented x3, not in any acute distress. Well developed, well nourished. HEENT: Pupils are round and equally reacting to light. EOMI. No scleral icterus. No conjunctival pallor. Normocephalic, atraumatic. No pharyngeal erythema. No thyromegaly. CARDIOVASCULAR: S1 and S2 present. No murmurs, rubs, or gallops. PULMONARY: Chest is clear to auscultation, no wheezing or crackles. ABDOMEN: Soft, nontender, nondistended, normoactive bowel sounds. No palpable organomegaly. MUSCULOSKELETAL: No joint swelling or deformity. EXTREMITIES: No cyanosis, clubbing, or pedal edema. NEUROLOGICAL: Gross neurological examination did not reveal any focal deficits. SKIN: No rashes. Dictation was produced using [employer] dictation software. please excuse any grammatical, word or spelling errors. Patient Condition at Discharge: Fair Plan - Discharge Summary Discharge Rx Participant: No New Discharge Prescriptions: New Ciprofloxacin HCl [Cipro] 500 mg PO Q12HR 10 Days #20 tab oxyBUTYnin chloride [Ditropan] 5 mg PO TID PRN 7 Days #21 tab PRN Reason: Pelvic Pain Continue Ibuprofen [Motrin] 800 mg PO TID PRN PRN Reason: Pain Nystatin [Nystatin Oral Susp] 500,000 unit PO QID Discharge Medication List Ibuprofen [Motrin] 800 mg PO TID PRN 05/28/24 [History] Nystatin [Nystatin Oral Susp] 500,000 unit PO QID 05/28/24 [History] Ciprofloxacin HCl [Cipro] 500 mg PO Q12HR 10 Days #20 tab 05/31/24 [Rx] oxyBUTYnin chloride [Ditropan] 5 mg PO TID PRN 7 Days #21 tab 05/31/24 [Rx] Follow up Appointment(s)/Referral(s): Kenan Ocasio MD [STAFF PHYSICIAN] - 1 Week Reyes Watson DO [Primary Care Provider] - 1-2 days Discharge Disposition: HOME SELF-CARE
[2024-05-31 15:09] VITALS: BP 108/64; PULSE 75; RESP 17; TEMP 98.3
--- NOTE | 2024-06-01 08:47 | P.PN ---
Subjective Progress Note Date: 05/31/24 Principal diagnosis: Reason for follow-up is sepsis with complicated UTI Patient is a 24-year-old female with a past medical history significant for asthma IBS endometriosis presenting to the hospital concerning for left flank area patient did have left-sided hydronephrosis requiring left ureteral stent placement and sepsis associated with a complicated UTI did have multiple antibiotic allergies prompting this consultation. On today's evaluation that is 05/31/2024,the patient denies any fever or any chills, patient is breathing comfortably on room air, the patient denies chest pain shortness of breath and no significant cough, patient denies abdominal pain, no nausea vomiting or diarrhea. Patient is feeling better wants to go home. Patient white count is 3.92, creatinine 0.6 repeat cultures are negative blood culture negative Objective - Vital Signs Vital signs: Vital Signs Temp 98.3 F 05/31/24 13:10 Pulse 75 05/31/24 13:10 Resp 17 05/31/24 13:10 BP 108/64 05/31/24 13:10 Pulse Ox 100 05/31/24 13:10 FiO2 Intake & Output 05/30/24 05/31/24 05/31/24 18:59 06:59 18:59 Intake Total 600 250 Balance 600 250 Intake: Oral 600 250 Other: Voiding Method Toilet Toilet Toilet # Voids 3 1 2 - Exam GENERAL DESCRIPTION: Young male lying in bed in no distress RESPIRATORY SYSTEM: Unlabored breathing , decreased breath sounds at bases HEART: S1 S2 regular rate and rhythm , ABDOMEN: Soft , no tenderness EXTREMITIES: No edema feet - Labs CBC & Chem 7: 05/31/24 03:03 05/31/24 03:03 Labs: Abnormal Lab Results - Last 24 Hours (Table) 05/31/24 05/31/24 Range/Units 03:03 03:03 WBC 3.92 L (4.50-10.00) X 10*3/uL RBC 3.29 L (4.10-5.20) X 10*6/uL Hgb 9.8 L (12.0-15.0) g/dL Hct 28.9 L (37.2-46.3) % MPV 12.3 H (9.5-12.2) FL Potassium 3.2 L (3.5-5.5) mmol/L BUN 7.3 L (9.0-27.0) mg/dL Calcium 7.9 L (8.7-10.3) mg/dL AST 170 H (13-35) U/L ALT 112 H (8-44) U/L Alkaline Phosphatase 269 H (41-126) U/L Total Protein 5.3 L (6.2-8.2) g/dL Albumin 3.2 L (3.8-4.9) g/dL Albumin/Globulin Ratio 1.52 L (1.60-3.17) Ratio Microbiology - Last 24 Hours (Table) 05/30/24 00:00 Urine Culture - Final Urine,Clean Catch 05/28/24 14:05 Blood Culture - Preliminary Blood Assessment and Plan (1) Sepsis Status: Acute Code(s): A41.9 - SEPSIS, UNSPECIFIED ORGANISM SNOMED Code(s): 92632151 (2) Pyelonephritis Status: Acute Code(s): N12 - TUBULO-INTERSTITIAL NEPHRITIS, NOT SPCF ACUTE OR CHRONIC SNOMED Code(s): 85995186 (3) Allergy to multiple antibiotics Status: Acute Code(s): Z88.1 - ALLERGY STATUS TO OTHER ANTIBIOTIC AGENTS SNOMED Code(s): 085851474 Plan: 1patient presented to hospital with sepsis in this patient who did have fever tachycardia elevated white count source is complicated UTI in this patient who did have left-sided hydronephrosis/hydroureter requiring cystoscopy and left ureteral stent placement. 2patient with multiple antibiotic ALLERGIES that would limit the number of antibiotic safe to use. 3patient did have resolution of her fever and clinical improvement has been insisting on going home we will consider a 10-day course of oral Cipro on disc harge and close outpatient follow-up discussed with admitting physician Dictation was produced using [employer] dictation software. please excuse any grammatical, word or spelling errors. Time with Patient: Less than 30
== END 2024-05-31 16:05 | disposition home or self-care (01) | DRG 720 ==
LOC: EC 08:23 → 5NMEDONC 12:44 → 4SSUR 13:46 → 3SCARD 17:03 → 4SSUR 05-29 17:38
PROVIDERS: ADMIT Internal Medicine; ATTEND Internal Medicine
PROC: 0T778DZ Dilation of Left Ureter with Intraluminal Device, Via Natural or Artificial Opening Endoscopic (ICD-10-PCS; principal; 2024-05-28 12:45)
DX: A41.9 Sepsis, unspecified organism (principal); F12.10 Cannabis abuse, uncomplicated; F32.A Depression, unspecified; F17.200 Nicotine dependence, unspecified, uncomplicated; F41.9 Anxiety disorder, unspecified; I10 Essential (primary) hypertension; J45.909 Unspecified asthma, uncomplicated; K58.9 Irritable bowel syndrome, unspecified; N13.6 Pyonephrosis; R73.03 Prediabetes; N80.9 Endometriosis, unspecified; G90.A Postural orthostatic tachycardia syndrome [POTS]; Z79.1 Long term (current) use of non-steroidal anti-inflammatories (NSAID); Z88.1 Allergy status to other antibiotic agents; Z88.0 Allergy status to penicillin; Z79.899 Other long term (current) drug therapy; Z88.5 Allergy status to narcotic agent
CPT/HCPCS: 36415; 71046; 74177; 80048; 80053; 81001; 81025; 83605; 85025; 87040; 87086; 87636; 96374; 96375; 99285

== ENCOUNTER 2024-06-08 06:24 | Day surgery (SDC) | payer OTHER ==
[~2024-06-08 06:24] MED LIST changes: -DEXAMETHASONE SOD PHOSPHATE 4 MG/ML 1 ML VIAL IV ONE; -LACTATED RINGERS 1,000 ML IV SCH; -ONDANSETRON 4 MG/2 ML VIAL IVP ONE; -Pre Op ABX Message 1 EACH MISC MISCELLANE ONE; +SODIUM CHLORIDE 0.9% 1,000 ML IV SCH
[2024-06-08] MEDS: SODIUM CHLORIDE 0.9% 500 ML 500 ML IV ONE (07:01)
[2024-06-08 07:03] VITALS: BP 94/50; PULSE 81; RESP 16; TEMP 98.7
--- NOTE | 2024-06-08 14:25 | P.EPPROC ---
- EP Procedure Note Electrophysiology Procedure Note: Diagnosis Recurrent presyncope 12 EKG shows sinus rhythm normal NE narrow QRS normal ST segments Tilt table test per protocol Baseline blood pressure 120/63 mmHg, baseline heart rate 70 beats a minute Patient was tilted upright from angle of 70 degrees per protocol There was an immediate increase in heart rate to 103 beats a minute and then subsequently 124 beats a minute. Patient felt lightheaded and dizzy as well as weak Blood pressure remained unchanged She felt very uncomfortable and wanted to lay back down When she was laid supine her heart rate normalized to 63 beats a minute normal blood pressure Impression orthostatic intolerance/POTS Normal twelve-lead EKG
== END 2024-06-08 08:34 | disposition home or self-care (01) ==
LOC: CATHEP 06:24
PROVIDERS: ATTEND Internal Medicine Clinical Cardiac Electrophysiology
CPT/HCPCS: 81025; 93660

== ENCOUNTER → 2024-06-09 | Outpatient (CLI) | payer OTHER ==
[2024-06-09 18:37] LABS: Basophils # (A) 0.05 X 10*3/uL (0.00-0.10); Basophils % (A) 0.4 %; Eosinophils # (A) 0.23 X 10*3/uL (0.04-0.35); Eosinophils % (A) 1.7 %; HCT 41.3 % (37.2-46.3); HGB 13.2 g/dL (12.0-15.0); Lymphocytes # (A) 4.13 X 10*3/uL (0.90-5.00); Lymphocytes % (A) 30.3 %; MCH 28.8 pg (27.0-32.0); Mean Platelet Volume 10.3 FL (9.5-12.2); Monocytes # (A) 0.83 X 10*3/uL (0.20-1.00); Monocytes % (A) 6.1 %; NRBC Per 100 WBC 0 X 10*3/uL (0.00-0.01); Neutrophils # (A) 8.28 X 10*3/uL (1.80-7.70); Neutrophils % (A) 60.8 %; Platelet Count 491 X 10*3/uL (140-440); RBC 4.59 X 10*6/uL (4.10-5.20); RDW 13.7 % (11.5-14.5); WBC 13.62 X 10*3/uL (4.50-10.00)
[2024-06-09 19:01] LABS: Blood Urea Nitrogen 10.4 mg/dL (9.0-27.0); Calcium 9.8 mg/dL (8.7-10.3); Carbon Dioxide 27.1 mmol/L (21.6-31.8); Chloride 103 mmol/L (96-109); Glucose 89 mg/dL (70-110); Potassium 4.5 mmol/L (3.5-5.5); Sodium 142 mmol/L (135-145)
[2024-06-09 19:43] LABS: Appearance,Urine Clear (Clear); Bilirubin,Urine Negative (Negative); Blood,Urine Moderate (Negative); Color,Urine Yellow (Yellow); Ketones,Urine Negative (Negative); Nitrite,Urine Negative (Negative); Urobilinogen,Urine 0.2 E.U./DL
[2024-06-09 20:42] LABS: Bacteria,Urine None Seen (None Seen)
== END | disposition home or self-care (01) ==
LOC: LABPAT 12:59
PROVIDERS: ATTEND Urology
DX: N20.1 Calculus of ureter (principal)
CPT/HCPCS: 36415; 80048; 81001; 85025; 87086

== ENCOUNTER 2024-06-16 05:50 | Day surgery (SDC) | payer OTHER ==
--- NOTE | 2024-06-09 14:10 | P.HPIHPCON ---
History of Present Illness H&P Date: 06/09/24 Chief Complaint: Left ureteral stone This is a 24-year-old female with history of a 9 mm left-sided distal ureteral stone, she is status post stent insertion May 28 for a septic stone. Presents today for left-sided ureteroscopy with holmium laser laser and stent removal. Aware of the risk which includes but not limited to bleeding, infection, injury to the ureter Consent for Procedure: I have explained the operation/procedure to the patient, including the risks, benefits, side effects, alternative therapies (including not receiving the proposed treatment or service), the likelihood of the patient achieving his/her goals, and potential recuperation problems for the procedure/sedation/analgesia, as well as any blood products, if indicated. I also explained to the patient the risks, benefits and side effects of the alternatives, as well as the risks related to not receiving the proposed procedure, care, treatment, or services. Past Medical History Past Medical History: Asthma Additional Past Medical History / Comment(s): IBS, orthostatic hypertension, borderline diabetic, endometriosis History of Any Multi-Drug Resistant Organisms: None Reported Past Surgical History: Adenoidectomy, Tonsillectomy Additional Past Surgical History / Comment(s): Endometriosis laproscopic surgery on 09/19/21 Past Anesthesia/Blood Transfusion Reactions: No Reported Reaction Additional Drug Use History / Comment(s): Pt reports occasional THC use Medications and Allergies Home Medications Medication Instructions Recorded Confirmed Type Nystatin [Nystatin Oral Susp] 500,000 unit PO QID 05/28/24 06/02/24 History Ciprofloxacin HCl [Cipro] 500 mg PO Q12HR 10 Days #20 tab 05/31/24 06/02/24 Rx oxyBUTYnin chloride [Ditropan] 5 mg PO TID PRN 7 Days #21 tab 05/31/24 06/02/24 Rx Acetaminophen-Codeine 300-30mg 1 tab PO Q8H PRN 06/02/24 06/02/24 History [Tylenol w/codeine #3] Famotidine [Pepcid] 40 mg PO BID 06/02/24 06/02/24 History Ibuprofen [Motrin] 800 mg PO Q8H PRN 06/02/24 06/02/24 History Allergies Allergy/AdvReac Type Severity Reaction Status Date / Time adhesive tape Allergy Rash/Hives Verified 06/08/24 07:00 amoxicillin Allergy Rash/Hives Verified 06/08/24 07:00 cephalexin [From Keflex] Allergy Rash/Hives Verified 06/08/24 07:00 Penicillins Allergy Rash/Hives Verified 06/08/24 07:00 Surgical - Exam - General no distress, moderate pain - Eyes normal ocular movement, no pale - ENT normal nares, normal mucosa - Respiratory normal expansion, normal respiratory effort - Abdomen Abdomen: soft, non tender, no distended - Psychiatric oriented to time, oriented to person, oriented to place Assessment and Plan Assessment: OR for left-sided ureteroscopy, holmium laser lithotripsy, stone basketing and stent removal
[2024-06-10 14:22] VITALS: BMI 31.6
--- NOTE | 2024-06-16 06:20 | XR ---
EXAMINATION TYPE: XR KUB DATE OF EXAM: 06/16/2024 6:14 AM CLINICAL HISTORY: Calculus TECHNIQUE: Single supine KUB images of the abdomen is obtained. COMPARISON: Prior abdominal x-ray 4 days earlier. FINDINGS: Stable left-sided double-J ureter stent. There is a stable 6 mm calculus in the left pelvis along the distal stent. No definite right-sided nephrolithiasis. Overall nonobstructive bowel gas pattern. Visualized osseous structures are intact. IMPRESSION: As above. [facility], , 06/16/2024 6:18 AM
[2024-06-16] MEDS ORDERED: LIDOCAINE 1% (10MG/ML) FOR IV START INTRADERMA PRN (06:29)
[2024-06-16 06:50] LABS: Glucose,Whole Blood 101 mg/dL (70-110)
[2024-06-16] MEDS: DEXAMETHASONE SOD PHOSPHATE 4 MG/ML 1 ML VIAL IV ONE (06:54)
[2024-06-16] MEDS: ONDANSETRON 4 MG/2 ML VIAL IVP ONE (06:54)
[2024-06-16] MEDS: LACTATED RINGERS 1,000 ML IV SCH (06:55)
[2024-06-16] MEDS ORDERED: HYDROmorphone 0.5 MG/0.5 ML SYRINGE IVP PRN (07:00)
[2024-06-16] MEDS ORDERED: fentaNYL (PF) 50 MCG/ML 2 ML AMP IV PRN (07:00)
[2024-06-16] MEDS: IV FLUID CONTINUATION 1,000 ML IV ONE (07:11)
[2024-06-16] MEDS: IOPAMIDOL-370 50ML BTL MISCELLANE ONE (07:26)
[2024-06-16] MEDS ORDERED: SUCCINYLCHOLINE CHLORIDE 200 MG/10 ML VIAL IV ONE (07:30)
[2024-06-16] MEDS ORDERED: MIDAZOLAM 2 MG/2 ML VIAL ONE (07:30)
[2024-06-16] MEDS ORDERED: LIDOCAINE 1% INJ 10MG/ML (20 ML MDV) ONE (07:30)
[2024-06-16] MEDS ORDERED: ROCURONIUM 10 MG/ML (5 ML VIAL) IV ONE (07:30)
[2024-06-16] MEDS ORDERED: PHENYLEPHRINE 10 MG/ML VIAL ONE (07:30)
[2024-06-16] MEDS ORDERED: fentaNYL (PF) 50 MCG/ML 2 ML AMP ONE (07:30)
[2024-06-16] MEDS ORDERED: PROPOFOL 10 MG/ML 20 ML VIAL IV ONE (07:30)
--- NOTE | 2024-06-16 08:10 | P.OP ---
Date of Procedure: 06/16/24 Preoperative Diagnosis: Left ureteral stone Postoperative Diagnosis: Same Procedure(s) Performed: Cystoscopy, left ureteroscopy, lithotripsy, stone basketing, stent removal Implants: None Anesthesia: MATTHEWA Surgeon: Kenan Ocasio Estimated Blood Loss (ml): 5 Pathology: other (Left ureteral stones) Condition: stable Disposition: PACU Indications for Procedure: This is a 24-year-old female with history of a 9 mm left-sided distal ureteral stone, she is status post stent insertion May 28 for a septic stone. Presents today for left-sided ureteroscopy with holmium laser laser and stent removal. Aware of the risk which includes but not limited to bleeding, infection, injury to the ureter Operative Findings: Left distal ureteral stones Description of Procedure: Patient brought to the operating room, general anesthesia was induced. She was prepped and draped in sterile fashion placed in a dorsolithotomy position. Cystoscopy fitted with a 21 Chinese sheath was inserted per urethra, cystoscopy was performed which showed no abnormality within the bladder. This time the stent was grasped and removed intact. Next a semirigid ureteroscope was inserted per urethra advanced up the left ureter ureter, at this point a distal ureteral stone was encountered, using a holmium laser the stone was fragmented, stone fragments were removed using the stone basket. At this time the scope was advanced all the way up to the UPJ which showed no additional stones, pullback ureteroscopy was performed showed no injury to the ureter or any sizable stone fragments, as ureteroscope was withdrawn a sensor wire was advanced through. Stone fragments were sent for chemical analysis. The bladder was emptied at the end of the case. Patient tolerated procedure was taken to recovery in stable condition
[2024-06-16 08:23] VITALS: TEMP 98
--- NOTE | 2024-06-16 08:38 | FL ---
EXAMINATION TYPE: FL guidance operating room DATE OF EXAM: 06/16/2024 FLUOROSCOPY Cysto for left kidney stone 1sec fluoro time .[address] Ocasio One image submitted. [facility], , 06/16/2024 8:36 AM
[2024-06-16] MEDS: KETOROLAC 15 MG/ML 1 ML VIAL IVP STA (09:25)
[2024-06-16 09:53] VITALS: BP 100/57; PULSE 55; RESP 18
== END 2024-06-16 10:00 | disposition home or self-care (01) ==
LOC: OR 05:50
PROVIDERS: ATTEND Urology
CPT/HCPCS: 74018; 81025; 82365

== ENCOUNTER 2024-08-29 22:30 | Emergency (ER) | payer OTHER ==
[2024-08-29 22:36] VITALS: RESP 18; TEMP 97.8
--- NOTE | 2024-08-29 23:47 | ED ---
General Adult HPI - General Chief complaint: Recheck/Abnormal Lab/Rx Stated complaint: weakness Time Seen by Provider: 08/29/24 23:25 Source: patient Mode of arrival: wheelchair Limitations: no limitations - History of Present Illness Initial comments: Dictation was produced using [employer] dictation software. please excuse any grammatical, word or spelling errors. Chief Complaint: 24-year-old female multiple comorbidities presents to the ER for tremors History of Present Illness: Patient 24-year-old female presents to the emergency department for total body tremors. States that she think she might be having a seizure. States that she is conscious when these happened. She does present via a video states that she has these uncontrollable spasms in all her arms and legs and body. States after the spasms last for several minutes and stopped she complains of some pain. She smokes marijuana occasionally. Denies any comorbidities states she is being worked up for some sort of adrenal issue. 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 Patient states she feels shaky at this time The ROS documented in this emergency department record has been reviewed and confirmed by me. Those systems with pertinent positive or negative responses have been documented in the HPI. All other systems are other negative and/or noncontributory. - Related Data Home Medications Medication Instructions Recorded Confirmed Nystatin [Nystatin Oral Susp] 500,000 unit PO QID 05/28/24 06/10/24 Acetaminophen-Codeine 300-30mg 1 tab PO Q8H PRN 06/02/24 06/10/24 [Tylenol w/codeine #3] Famotidine [Pepcid] 40 mg PO BID 06/02/24 06/10/24 Ibuprofen [Motrin] 800 mg PO Q8H PRN 06/02/24 06/16/24 nadoloL 10 mg PO ONCE 06/16/24 06/16/24 Previous Rx's Medication Instructions Recorded oxyBUTYnin chloride [Ditropan] 5 mg PO TID PRN 7 Days #21 tab 05/31/24 Ciprofloxacin HCl [Cipro] 250 mg PO Q12HR #10 tablet 06/16/24 Ketorolac [Toradol] 10 mg PO Q6HR PRN #10 tab 06/16/24 Allergies Allergy/AdvReac Type Severity Reaction Status Date / Time adhesive tape Allergy Rash/Hives Verified 08/29/24 22:36 amoxicillin Allergy Rash/Hives Verified 08/29/24 22:36 cephalexin [From Keflex] Allergy Rash/Hives Verified 08/29/24 22:36 Penicillins Allergy Rash/Hives Verified 08/29/24 22:36 Review of Systems ROS Statement: Those systems with pertinent positive or pertinent negative responses have been documented in the HPI. ROS Other: All systems not noted in ROS Statement are negative. Past Medical History Past Medical History: Asthma Additional Past Medical History / Comment(s): IBS, orthostatic hypertension, borderline diabetic, endometriosis, PATEL dx 06-11-2024 History of Any Multi-Drug Resistant Organisms: None Reported Past Surgical History: Adenoidectomy, Tonsillectomy Additional Past Surgical History / Comment(s): Endometriosis laproscopic surgery on 09/19/21 Past Anesthesia/Blood Transfusion Reactions: No Reported Reaction Past Psychological History: Anxiety, Depression Smoking Status: Current every day smoker Past Alcohol Use History: None Reported Past Drug Use History: Marijuana General Exam - General Exam Comments Initial Comments: PHYSICAL EXAM: General Impression: Alert and oriented x3, not in acute distress HEENT: Normocephalic atraumatic, extra-ocular movements intact, pupils equal and reactive to light bilaterally, mucous membranes moist. Cardiovascular: Heart regular rate and rhythm Chest: Able to complete full sentences, no retractions, no tachypnea Abdomen: abdomen soft, non-tender, non-distended, no organomegaly Musculoskeletal: Pulses present and equal in all extremities, no peripheral edema Motor: no focal deficits noted Neurological: CN II-XII grossly intact, no focal motor or sensory deficits noted Skin: Intact with no visualized rashes Psych: Normal affect and mood Limitations: no limitations Course Vital Signs 08/29/24 08/30/24 22:34 02:00 Temperature 97.8 F Pulse Rate 69 76 Respiratory 18 18 Rate Blood Pressure 116/74 114/70 O2 Sat by Pulse 98 98 Oximetry EKG Findings - EKG Comments: EKG Findings:: My EKG interpretation: Ventricular rate 68, sinus rhythm,. 140, QRS 90, QTc 406. No [place] prolongation, no QTC prolongation, no ST or T-wave changes noted. Overall, this EKG is unremarkable Medical Decision Making - Medical Decision Making Was pt. sent in by a medical professional or institution (, PA, GEOPHYSICS PROFESSOR, urgent care, hospital, or care home...) When possible be specific @ -No Did you speak to anyone other than the patient for history (EMS, parent, family, police, friend...)? What history was obtained from this source @ -No Did you review nursing and triage notes (agree or disagree)? Why? @ -I reviewed and agree with nursing and triage notes Were old charts reviewed (outside hosp., previous admission, EMS record, old EKG , old radiological studies, urgent care reports/EKG's, care home records)? Report findings @ -No old charts were reviewed Differential Diagnosis (chest pain, altered mental status, abdominal pain women, abdominal pain men, vaginal bleeding, musculoskeletal, weakness, fever, dyspnea, syncope, headache, dizziness, GI bleed, back pain, seizure, CVA, palpatations, mental health)? @ -Differential Weakness: Hypoglycemia, shock, sepsis, hyponatremia, anemia, infection, MN, ETOH, adverse medicine reaction, overdose, stroke, this is not meant to be an all-inclusive list. EKG interpreted by me (3pts min.). @ -As above X-rays interpreted by me (1pt min.). @ -None done CT interpreted by me (1pt min.). @ -None done U/S interpreted by me (1pt. min.). @ -None done What testing was considered but not performed or refused? (CT, X-rays, U/S, labs)? Why? @ -None What meds were considered but not given or refused? Why? @ -None Was smoking cessation discussed for >3mins.? @ -No Were there social determinants of health that impacted care today? How? (Homelessness, low income, unemployed, alcoholism, drug addiction, transportation, low edu. Level, literacy, decrease access to med. care, long term, rehab)? @ -No Was there de-escalation of care discussed even if they declined (Discuss DNR or withdrawal of care, Hospice)? DNR status @ -No What co-morbidities impacted this encounter? (DM, HTN, Smoking, COPD, CAD, Cancer, CVA, ARF, Chemo, Hep., AIDS, mental health diagnosis, sleep apnea, mor bid obesity)? @ -None Was patient admitted / discharged? Hospital course, mention meds given and ro tree, prescriptions, significant lab abnormalities, going to OR and other pertinent info. @ -24-year-old female presents emergency department with what she describes as muscle spasms and uncontrollable tremors. Vital signs stable. Patient well- appearing at the bedside physical examination is unremarkable. States that she has been under a lot of stress recently. Laboratory evaluation obtained labs are unremarkable. The electrolytes are normal. Patient positive for marijuana. Patient observed emergency department for approximately 4 hours and 22 minutes. Reevaluated bedside at 2:53 AM found to be stable to condition. Patient advised follow-up with primary care doctor. At this point is unclear what is causing patient's symptoms. Nonetheless it appears to be not life-threatening Did you discuss the management of the patient with other professionals (professionals i.e. , PA, GEOPHYSICS PROFESSOR, lab, RT, psych nurse, director of social services, ring spinner, teacher, customs patrol officer, porter sample case)? Give summary @ -No Was critical care preformed (if so, how long)? @ -No Undiagnosed new problem with uncertain prognosis? @ -No Drug Therapy requiring intensive monitoring for toxicity (Heparin, Nitro, Insulin, Cardizem)? @ -No Were any procedures done? @ -No Diagnosis/symptom? Acute, or Chronic, or Acute on Chronic? Uncomplicated (without systemic symptoms) or Complicated (systemic symptoms)? @ -Tremors Side effects of treatment? @ -No Exacerbation, Progression, or Severe Exacerbation? @ -No Poses a threat to life or bodily function? How? (Chest pain, USA, [place], pneumonia, PE, COPD, DKA, ARF, appy, cholecystitis, CVA, Diverticulitis, Homicidal, Suicidal, threat to staff... and all critical care pts) @ -No - Lab Data Result diagrams: 08/29/24 23:35 08/29/24 23:35 Lab Results 08/29/24 08/29/24 08/29/24 Range/Units 23:35 23:35 23:35 WBC 11.4 H (3.8-10.6) k/uL RBC 4.51 (3.80-5.40) m/uL Hgb 13.8 (11.4-16.0) gm/dL Hct 40.3 (34.0-46.0) % MCV 89.3 (80.0-100.0) fL MCH 30.7 (25.0-35.0) pg MCHC 34.4 (31.0-37.0) g/dL RDW 13.0 (11.5-15.5) % Plt Count 272 (150-450) k/uL MPV 8.2 Neutrophils % 55 % Lymphocytes % 38 % Monocytes % 5 % Eosinophils % 1 % Basophils % 0 % Neutrophils # 6.2 (1.3-7.7) k/uL Lymphocytes # 4.3 (1.0-4.8) k/uL Monocytes # 0.5 (0-1.0) k/uL Eosinophils # 0.1 (0-0.7) k/uL Basophils # 0.1 (0-0.2) k/uL Sodium 140 (137-145) mmol/L Potassium 3.7 (3.5-5.1) mmol/L Chloride 104 (98-107) mmol/L Carbon Dioxide 25 (22-30) mmol/L Anion Gap 11 mmol/L BUN 8 (7-17) mg/dL Creatinine 0.66 (0.52-1.04) mg/dL Est GFR (CKD-EPI)AfAm >90 (>60 ml/min/1.73 sqM) Est GFR (CKD-EPI)NonAf >90 (>60 ml/min/1.73 sqM) Glucose 109 H (74-99) mg/dL Plasma Lactic Acid Jose A 1.8 (0.7-2.0) mmol/L Calcium 9.5 (8.4-10.2) mg/dL Magnesium 2.2 (1.6-2.3) mg/dL Total Bilirubin 0.2 (0.2-1.3) mg/dL AST 15 (14-36) U/L ALT 12 (4-34) U/L Alkaline Phosphatase 76 (38-126) U/L Creatine Kinase 40 (30-135) U/L Total Protein 7.0 (6.3-8.2) g/dL Albumin 4.3 (3.5-5.0) g/dL Urine HCG, Qual (Not Detectd) Urine Opiates Screen (NotDetected) Ur Oxycodone Screen (NotDetected) Urine Methadone Screen (NotDetected) Ur Barbiturates Screen (NotDetected) U Tricyclic Antidepress (NotDetected) Ur Phencyclidine Scrn (NotDetected) Ur Amphetamines Screen (NotDetected) U Methamphetamines Scrn (NotDetected) U Benzodiazepines Scrn (NotDetected) Urine Cocaine Screen (NotDetected) U Marijuana (THC) Screen (NotDetected) 08/30/24 08/30/24 Range/Units 00:05 00:05 WBC (3.8-10.6) k/uL RBC (3.80-5.40) m/uL Hgb (11.4-16.0) gm/dL Hct (34.0-46.0) % MCV (80.0-100.0) fL MCH (25.0-35.0) pg MCHC (31.0-37.0) g/dL RDW (11.5-15.5) % Plt Count (150-450) k/uL MPV Neutrophils % % Lymphocytes % % Monocytes % % Eosinophils % % Basophils % % Neutrophils # (1.3-7.7) k/uL Lymphocytes # (1.0-4.8) k/uL Monocytes # (0-1.0) k/uL Eosinophils # (0-0.7) k/uL Basophils # (0-0.2) k/uL Sodium (137-145) mmol/L Potassium (3.5-5.1) mmol/L Chloride (98-107) mmol/L Carbon Dioxide (22-30) mmol/L Anion Gap mmol/L BUN (7-17) mg/dL Creatinine (0.52-1.04) mg/dL Est GFR (CKD-EPI)AfAm (>60 ml/min/1.73 sqM) Est GFR (CKD-EPI)NonAf (>60 ml/min/1.73 sqM) Glucose (74-99) mg/dL Plasma Lactic Acid Jose A (0.7-2.0) mmol/L Calcium (8.4-10.2) mg/dL Magnesium (1.6-2.3) mg/dL Total Bilirubin (0.2-1.3) mg/dL AST (14-36) U/L ALT (4-34) U/L Alkaline Phosphatase (38-126) U/L Creatine Kinase (30-135) U/L Total Protein (6.3-8.2) g/dL Albumin (3.5-5.0) g/dL Urine HCG, Qual Not Detected (Not Detectd) Urine Opiates Screen Not Detected (NotDetected) Ur Oxycodone Screen Not Detected (NotDetected) Urine Methadone Screen Not Detected (NotDetected) Ur Barbiturates Screen Not Detected (NotDetected) U Tricyclic Antidepress Not Detected (NotDetected) Ur Phencyclidine Scrn Not Detected (NotDetected) Ur Amphetamines Screen Not Detected (NotDetected) U Methamphetamines Scrn Not Detected (NotDetected) U Benzodiazepines Scrn Not Detected (NotDetected) Urine Cocaine Screen Not Detected (NotDetected) U Marijuana (THC) Screen Detected H (NotDetected) Disposition Clinical Impression: Occasional tremors Disposition: HOME SELF-CARE Condition: Fair Instructions (If sedation given, give patient instructions): Tremors (ED) Is patient prescribed a controlled substance at d/c from ED?: No Referrals: None,Stated [Primary Care Provider] - 1-2 days Yazmin Valdez III, MD [STAFF PHYSICIAN] - 1-2 days Time of Disposition: 02:54
[2024-08-30 00:04] LABS: Basophils # (A) 0.1 k/uL (0-0.2); Basophils % (A) 0 %; Eosinophils # (A) 0.1 k/uL (0-0.7); Eosinophils % (A) 1 %; HCT 40.3 % (34.0-46.0); HGB 13.8 gm/dL (11.4-16.0); Lymphocytes # (A) 4.3 k/uL (1.0-4.8); Lymphocytes % (A) 38 %; MCH 30.7 pg (25.0-35.0); MCHC 34.4 g/dL (31.0-37.0); MCV 89.3 fL (80.0-100.0); Mean Platelet Volume 8.2; Monocytes # (A) 0.5 k/uL (0-1.0); Monocytes % (A) 5 %; Neutrophils # (A) 6.2 k/uL (1.3-7.7); Neutrophils % (A) 55 %; Platelet Count 272 k/uL (150-450); RBC 4.51 m/uL (3.80-5.40); WBC 11.4 k/uL (3.8-10.6)
[2024-08-30 00:15] LABS: ALT 12 U/L (4-34); AST 15 U/L (14-36); African American GFR (CKD) >90 (>60 ml/min/1.73 sqM); Albumin 4.3 g/dL (3.5-5.0); Alkaline Phosphatase 76 U/L (38-126); Anion Gap 11 mmol/L; Blood Urea Nitrogen 8 mg/dL (7-17); Calcium 9.5 mg/dL (8.4-10.2); Carbon Dioxide 25 mmol/L (22-30); Chloride 104 mmol/L (98-107); Creatine Kinase 40 U/L (30-135); Glucose 109 mg/dL (74-99); Magnesium 2.2 mg/dL (1.6-2.3); Non-African American GFR(CKD) >90 (>60 ml/min/1.73 sqM); Potassium 3.7 mmol/L (3.5-5.1); Sodium 140 mmol/L (137-145); Total Bilirubin 0.2 mg/dL (0.2-1.3)
[2024-08-30 01:10] LABS: Amphetamine Screen,Urine Not Detected (NotDetected); Barbiturate Screen,Urine Not Detected (NotDetected); Benzodiazepines Screen,Urine Not Detected (NotDetected); Cocaine Screen,Urine Not Detected (NotDetected); Methadone Screen, Urine Not Detected (NotDetected); Opiate Screen,Urine Not Detected (NotDetected); Oxycodone Screen, Urine Not Detected (NotDetected); Phencyclidine Screen,Urine Not Detected (NotDetected); Tricyclic Antidepressant,Urine Not Detected (NotDetected); Urn Cannabinoid Scrn Detected (NotDetected)
[2024-08-30 02:27] VITALS: BP 114/70; PULSE 76
== END 2024-08-30 02:56 | disposition home or self-care (01) ==
LOC: EC 22:30
DX: R25.1 Tremor, unspecified (principal); F17.200 Nicotine dependence, unspecified, uncomplicated; Z88.0 Allergy status to penicillin; Z88.1 Allergy status to other antibiotic agents; Z88.8 Allergy status to other drugs, medicaments and biological substances
CPT/HCPCS: 36415; 80053; 80306; 81025; 82550; 83605; 83735; 85025; 93005; 99285

== ENCOUNTER 2024-12-26 19:45 | Emergency (ER) | payer OTHER ==
[2024-12-26 19:50] VITALS: RESP 18
[2024-12-26] MEDS: SODIUM CHLORIDE 0.9% 1,000 ML IV STA (20:21)
[2024-12-26] MEDS: ONDANSETRON ODT 4 MG TAB PO STA (20:22)
[2024-12-26] MEDS: diphenhydrAMINE 50 MG/ML 1 ML VIAL IVP STA (20:22)
[2024-12-26] MEDS: HYDROmorphone 0.5 MG/0.5 ML SYRINGE IVP STA (20:23)
[2024-12-26] MEDS: ACETAMINOPHEN IV (For NPO) 1,000 MG in EMPTY BAG 1 BAG IVPB ONE (21:15)
--- NOTE | 2024-12-26 21:24 | ED ---
Headache HPI - General Chief Complaint: Headache Stated Complaint: Migraine/ BL Leg numbness Time Seen by Provider: 12/26/24 19:51 Mode of arrival: ambulatory Limitations: no limitations - History of Present Illness Initial Comments: 24-year-old female presenting with chief complaint of headache. Patient has had this headache for about 3 days now. States that she has a new history of of daily headaches and this 1 is worse than usual. She admits to nausea, light and sound sensitivity, dizziness. Denies any injury or trauma. No blood thinners. No vomiting. States that she is in the process of getting an appointment with neurology. No fever. No recent illness. No chest pain or difficulty breathing. - Related Data Home Medications Medication Instructions Recorded Confirmed Nystatin [Nystatin Oral Susp] 500,000 unit PO QID 05/28/24 06/10/24 Acetaminophen-Codeine 300-30mg 1 tab PO Q8H PRN 06/02/24 06/10/24 [Tylenol w/codeine #3] Famotidine [Pepcid] 40 mg PO BID 06/02/24 06/10/24 Ibuprofen [Motrin] 800 mg PO Q8H PRN 06/02/24 06/16/24 nadoloL 10 mg PO ONCE 06/16/24 06/16/24 Previous Rx's Medication Instructions Recorded oxyBUTYnin chloride [Ditropan] 5 mg PO TID PRN 7 Days #21 tab 05/31/24 Ciprofloxacin HCl [Cipro] 250 mg PO Q12HR #10 tablet 06/16/24 Ketorolac [Toradol] 10 mg PO Q6HR PRN #10 tab 06/16/24 Ketorolac [Toradol] 10 mg PO Q6HR PRN #10 tab 12/26/24 Allergies Allergy/AdvReac Type Severity Reaction Status Date / Time adhesive tape Allergy Rash/Hives Verified 12/26/24 19:50 amoxicillin Allergy Rash/Hives Verified 12/26/24 19:50 cephalexin [From Keflex] Allergy Rash/Hives Verified 12/26/24 19:50 Penicillins Allergy Rash/Hives Verified 12/26/24 19:50 Review of Systems ROS Statement: Those systems with pertinent positive or pertinent negative responses have been documented in the HPI. ROS Other: All systems not noted in ROS Statement are negative. Past Medical History Past Medical History: Asthma Additional Past Medical History / Comment(s): IBS, orthostatic hypertension, borderline diabetic, endometriosis, PATEL dx 06-11-2024 History of Any Multi-Drug Resistant Organisms: None Reported Past Surgical History: Adenoidectomy, Tonsillectomy Additional Past Surgical History / Comment(s): Endometriosis laproscopic surgery on 09/19/21 Past Anesthesia/Blood Transfusion Reactions: No Reported Reaction Past Psychological History: Anxiety, Depression Smoking Status: Current every day smoker Past Alcohol Use History: None Reported Past Drug Use History: Marijuana General Exam Limitations: no limitations General appearance: alert, in distress (in pain with a mask over her face) Head exam: Present: atraumatic, normocephalic, normal inspection Eye exam: Present: normal appearance, PERRL, EOMI. Absent: periorbital swelling Neck exam: Present: normal inspection. Absent: meningismus Respiratory exam: Present: normal lung sounds bilaterally. Absent: respiratory distress, wheezes, rales, rhonchi, stridor Cardiovascular Exam: Present: regular rate, normal rhythm, normal heart sounds. Absent: systolic murmur, diastolic murmur, rubs, gallop, clicks Neurological exam: Present: alert, oriented X3 Expanded Eye Response: (4) open spontaneously Motor Response: (6) obeys commands Verbal Response: (5) oriented [place] Total: 15 Psychiatric exam: Present: normal affect, normal mood Skin exam: Present: warm, dry, normal color Course Vital Signs 12/26/24 12/26/24 19:46 23:40 Temperature 99.2 F 98.9 F Pulse Rate 83 78 Respiratory 18 18 Rate Blood Pressure 114/77 123/73 O2 Sat by Pulse 98 99 Oximetry Medical Decision Making - Medical Decision Making Was pt. sent in by a medical professional or institution (, PA, RESEARCH GREENHOUSE SUPERVISOR, urgent care, hospital, or assisted...) When possible be specific @ -No Did you speak to anyone other than the patient for history (EMS, parent, family, police, friend...)? What history was obtained from this source @ -No Did you review nursing and triage notes (agree or disagree)? Why? @ -I reviewed and agree with nursing and triage notes Were old charts reviewed (outside hosp., previous admission, EMS record, old EKG, old radiological studies, urgent care reports/EKG's, assisted records)? Report findings @ -No old charts were reviewed Differential Diagnosis (chest pain, altered mental status, abdominal pain women, abdominal pain men, vaginal bleeding, weakness, fever, dyspnea, syncope, headache, dizziness, GI bleed, back pain, seizure, CVA, palpatations, mental health, musculoskeletal)? @ -[facility] Differential Headache: Migraine, tension, cluster, carbon monoxide, central venous thrombosis, pension karma temporal arteritis, acute closure glaucoma, intercranial hemorrhage, mastoiditis, sinusitis, head injury… this is not meant to be an all-inclusive list. EKG interpreted by me (3pts min.). @ -As above X-rays interpreted by me (1pt min.). @ -None done CT interpreted by me (1pt min.). @ -CT shows no acute intracranial process U/S interpreted by me (1pt. min.). @ -None done What testing was considered but not performed or refused? (CT, X-rays, U/S, labs)? Why? @ -None What meds were considered but not given or refused? Why? @ -None Did you discuss the management of the patient with other professionals (professionals i.e. , PA, RESEARCH GREENHOUSE SUPERVISOR, lab, RT, psych nurse, socially responsible investment adviser, watch repairer, teacher, armor officer, case management coordinator)? Give summary @ -No Was smoking cessation discussed for >3mins.? @ -No Was critical care preformed (if so, how long)? @ -No Were there social determinants of health that impacted care today? How? (Homelessness, low income, unemployed, alcoholism, drug addiction, transportation, low edu. Level, literacy, decrease access to med. care, alf, rehab)? @ -No Was there de-escalation of care discussed even if they declined (Discuss DNR or withdrawal of care, Hospice)? DNR status @ -No What co-morbidities impacted this encounter? (DM, HTN, Smoking, COPD, CAD, Cancer, CVA, ARF, Chemo, Hep., AIDS, mental health diagnosis, sleep apnea, morbid obesity)? @ -None Was patient admitted / discharged? Hospital course, mention meds given and route, prescriptions, significant lab abnormalities, going to OR and other pertinent info. @ -24-year-old female presenting with chief complaint of headache. History and physical examination are conducted. Patient is given a migraine cocktail and has continued pain. Labs and CT are obtained. CT shows no acute intracranial process. Negative urine hCG. Labs require no immediate action. Patient also requests STI testing, negative trichomonas testing. Patient is given more pain medication on reassessment she reports improvement in her pain. She feels well and feels comfortable discharge home. She will be following up with neurology and her PCP. Follow-up with PCP. Report back to ER with any new or worsening symptoms. Discussed return parameters and answered all questions. Patient conveyed verbal understanding and agreed to the plan. I discussed this case in detail with my attending Dr. Reyna Undiagnosed new problem with uncertain prognosis? @ -No Drug Therapy requiring intensive monitoring for toxicity (Heparin, Nitro, Insulin, Cardizem)? @ -No Were any procedures done? @ -No Diagnosis/symptom? @ -migraine Acute, or Chronic, or Acute on Chronic? @ -Acute Uncomplicated (without systemic symptoms) or Complicated (systemic symptoms)? @ -Uncomplicated Side effects of treatment? @ -No Exacerbation, Progression, or Severe Exacerbation? @ -No Poses a threat to life or bodily function? How? (Chest pain, USA, [place], pneumonia, PE, COPD, DKA, ARF, appy, cholecystitis, CVA, Diverticulitis, Homicidal, Suicidal, threat to staff... and all critical care pts) @ -Unlikely - Lab Data Result diagrams: 12/26/24 21:47 12/26/24 21:47 Lab Results 12/26/24 12/26/24 12/26/24 Range/Units 20:31 21:47 21:47 WBC 14.46 H (4.50-10.00) 10*3/uL RBC 4.36 (4.10-5.20) 10*6/uL Hgb 13.7 (12.0-15.0) g/dL Hct 38.6 (37.2-46.3) % MCV 88.5 (80.0-97.0) fL MCH 31.4 (27.0-32.0) pg MCHC 35.5 (32.0-37.0) g/dL Plt Count 201 (140-440) 10*3/uL MPV 11.6 (9.5-12.2) fL Immature Gran % (Auto) 0.3 % Neutrophils % 61.5 % Lymphocytes % 31.1 % Monocytes % 6.9 % Eosinophils % 0.1 % Basophils % 0.1 % Immature Gran # 0.04 (0.00-0.04) 10*3/uL Neutrophils # 8.88 H (1.80-7.70) 10*3/uL Lymphocytes # 4.50 (0.90-5.00) 10*3/uL Monocytes # 1.00 (0.20-1.00) 10*3/uL Eosinophils # 0.02 L (0.04-0.35) 10*3/uL Basophils # 0.02 (0.00-0.10) 10*3/uL Sodium 140 (137-145) mmol/L Potassium 3.6 (3.5-5.1) mmol/L Chloride 107 (98-107) mmol/L Carbon Dioxide 22 (22-30) mmol/L Anion Gap 11 mmol/L BUN 11 (7-17) mg/dL Creatinine 0.65 (0.52-1.04) mg/dL Est GFR (CKD-EPI)AfAm >90 (>60 ml/min/1.73 sqM) Est GFR (CKD-EPI)NonAf >90 (>60 ml/min/1.73 sqM) Glucose 90 (74-99) mg/dL Calcium 9.5 (8.4-10.2) mg/dL Total Bilirubin 0.4 (0.2-1.3) mg/dL AST 19 (14-36) U/L ALT 11 (4-34) U/L Alkaline Phosphatase 57 (38-126) U/L Total Protein 6.9 (6.3-8.2) g/dL Albumin 4.2 (3.5-5.0) g/dL Urine HCG, Qual Not Detected (Not Detectd) Trichomonas Ag (Rapid) (Negative) 12/26/24 Range/Units 21:58 WBC (4.50-10.00) 10*3/uL RBC (4.10-5.20) 10*6/uL Hgb (12.0-15.0) g/dL Hct (37.2-46.3) % MCV (80.0-97.0) fL MCH (27.0-32.0) pg MCHC (32.0-37.0) g/dL Plt Count (140-440) 10*3/uL MPV (9.5-12.2) fL Immature Gran % (Auto) % Neutrophils % % Lymphocytes % % Monocytes % % Eosinophils % % Basophils % % Immature Gran # (0.00-0.04) 10*3/uL Neutrophils # (1.80-7.70) 10*3/uL Lymphocytes # (0.90-5.00) 10*3/uL Monocytes # (0.20-1.00) 10*3/uL Eosinophils # (0.04-0.35) 10*3/uL Basophils # (0.00-0.10) 10*3/uL Sodium (137-145) mmol/L Potassium (3.5-5.1) mmol/L Chloride (98-107) mmol/L Carbon Dioxide (22-30) mmol/L Anion Gap mmol/L BUN (7-17) mg/dL Creatinine (0.52-1.04) mg/dL Est GFR (CKD-EPI)AfAm (>60 ml/min/1.73 sqM) Est GFR (CKD-EPI)NonAf (>60 ml/min/1.73 sqM) Glucose (74-99) mg/dL Calcium (8.4-10.2) mg/dL Total Bilirubin (0.2-1.3) mg/dL AST (14-36) U/L ALT (4-34) U/L Alkaline Phosphatase (38-126) U/L Total Protein (6.3-8.2) g/dL Albumin (3.5-5.0) g/dL Urine HCG, Qual (Not Detectd) Trichomonas Ag (Rapid) Negative (Negative) Disposition Clinical Impression: Migraine Disposition: HOME SELF-CARE Condition: Good Instructions (If sedation given, give patient instructions): Acute Headache (ED) Additional Instructions: Follow-up with PCP and neurology. Report back to ER with any new or worsening symptoms. Do not combine ketorolac with other NSAIDs such as ibuprofen (Motrin/Advil) or naproxen (Aleve). Prescriptions: Ketorolac [Toradol] 10 mg PO Q6HR PRN #10 tab PRN Reason: Pain Is patient prescribed a controlled substance at d/c from ED?: No Referrals: [facility], DO [Primary Care Provider] - 1-2 days Time of Disposition: 23:09
--- NOTE | 2024-12-26 22:02 | CT ---
EXAMINATION TYPE: CT brain wo con DATE OF EXAM: 12/26/2024 9:42 PM COMPARISON: None CLINICAL INDICATION: Female, 24 years old with history of Headache, headache x 3 days TECHNIQUE: Brain: Axial CT images of the brain were obtained with coronal and sagittal reformats created and rev iewed. Contrast used: None. Oral contrast used: None. CT DLP: 1111.9 mGycm, Automated exposure control for dose reduction was used. FINDINGS: Brain: Extra-axial spaces: No abnormal extra-axial fluid collections. Ventricular system: Within normal limits Cerebral parenchyma: No acute intraparenchymal hemorrhage or mass effect. The flores-white junction is well differentiated. Cerebellum: Unremarkable. Mass effect: No evidence of midline shift. Intracranial vasculature: unremarkable Soft tissues: Normal. Calvarium/osseous structures: No depressed skull fracture. Paranasal sinuses and mastoid air cells: Mild scattered paranasal sinus disease. Visualized orbits: Orbital contents are intact. IMPRESSION: No acute intracranial process. [facility], , 12/26/2024 9:59 PM
[2024-12-26] MEDS: HYDROmorphone 1 MG/ML 1 ML SYRINGE IVP STA (22:04)
[2024-12-26 22:11] LABS: Basophils # (A) 0.02 10*3/uL (0.00-0.10); Basophils % (A) 0.1 %; Eosinophils # (A) 0.02 10*3/uL (0.04-0.35); Eosinophils % (A) 0.1 %; HCT 38.6 % (37.2-46.3); HGB 13.7 g/dL (12.0-15.0); Lymphocytes % (A) 31.1 %; MCH 31.4 pg (27.0-32.0); MCHC 35.5 g/dL (32.0-37.0); MCV 88.5 fL (80.0-97.0); Mean Platelet Volume 11.6 fL (9.5-12.2); Monocytes % (A) 6.9 %; Neutrophils # (A) 8.88 10*3/uL (1.80-7.70); Neutrophils % (A) 61.5 %; Platelet Count 201 10*3/uL (140-440); RBC 4.36 10*6/uL (4.10-5.20); RDW 12.8 % (11.5-14.5); WBC 14.46 10*3/uL (4.50-10.00)
[2024-12-26] MEDS: DEXAMETHASONE SOD PHOSPHATE 10 MG/ML 1 ML VIAL IV STA (22:22)
[2024-12-26] MEDS: KETOROLAC 15 MG/ML 1 ML VIAL IVP STA (22:22)
[2024-12-26 22:26] LABS: ALT 11 U/L (4-34); AST 19 U/L (14-36); African American GFR (CKD) >90 (>60 ml/min/1.73 sqM); Albumin 4.2 g/dL (3.5-5.0); Alkaline Phosphatase 57 U/L (38-126); Anion Gap 11 mmol/L; Blood Urea Nitrogen 11 mg/dL (7-17); Calcium 9.5 mg/dL (8.4-10.2); Carbon Dioxide 22 mmol/L (22-30); Chloride 107 mmol/L (98-107); Glucose 90 mg/dL (74-99); Non-African American GFR(CKD) >90 (>60 ml/min/1.73 sqM); Potassium 3.6 mmol/L (3.5-5.1); Sodium 140 mmol/L (137-145); Total Bilirubin 0.4 mg/dL (0.2-1.3); Total Protein 6.9 g/dL (6.3-8.2)
[2024-12-26 23:41] VITALS: BP 123/73; PULSE 78; TEMP 98.9
== END 2024-12-26 23:42 | disposition home or self-care (01) ==
LOC: EC 19:45
DX: G43.909 Migraine, unspecified, not intractable, without status migrainosus (principal); F17.200 Nicotine dependence, unspecified, uncomplicated; Z88.0 Allergy status to penicillin; Z91.048 Other nonmedicinal substance allergy status; Z88.1 Allergy status to other antibiotic agents
CPT/HCPCS: 36415; 80053; 85025; 81025; 87808; 87491; 87591; 70450; 99284; 96365; 96375 ×4; 96376; 96361; J1200; J1100; J1171 ×2; J0131; J1885

== ENCOUNTER → 2024-12-29 | Outpatient (CLI) | payer OTHER ==
[2024-12-29 15:02] LABS: HCT 38.8 % (37.2-46.3); HGB 13.1 g/dL (12.0-15.0); MCH 29.8 pg (27.0-32.0); MCHC 33.8 g/dL (32.0-37.0); MCV 88.4 FL (80.0-97.0); Mean Platelet Volume 11.8 FL (9.5-12.2); NRBC Per 100 WBC 0 X 10*3/uL (0.00-0.01); Platelet Count 227 X 10*3/uL (140-440); RBC 4.39 X 10*6/uL (4.10-5.20); RDW 13.1 % (11.5-14.5); WBC 11.07 X 10*3/uL (4.50-10.00)
[2024-12-29 15:03] LABS: Basophils # (A) 0.04 X 10*3/uL (0.00-0.10); Basophils % (A) 0.4 %; Eosinophils # (A) 0.18 X 10*3/uL (0.04-0.35); Eosinophils % (A) 1.6 %; Monocytes # (A) 0.71 X 10*3/uL (0.20-1.00); Monocytes % (A) 6.4 %; Neutrophils # (A) 6.01 X 10*3/uL (1.80-7.70); Neutrophils % (A) 54.3 %
[2024-12-29 15:22] LABS: ALT 11 U/L (8-44); AST 12 U/L (13-35); Albumin 4.1 g/dL (3.8-4.9); Albumin/Globulin Ratio 1.64 Ratio (1.60-3.17); Alkaline Phosphatase 69 U/L (41-126); Amylase 67 U/L (23-121); BUN/Creat Ratio 14.83 Ratio (12.00-20.00); Blood Urea Nitrogen 8.9 mg/dL (9.0-27.0); Chloride 108 mmol/L (96-109); Chol/HDL Ratio 5.07 Ratio; Globulin 2.5 g/dL (1.6-3.3); Glucose 86 mg/dL (70-110); HCG,Quantitative Serum <3.0 mIU/mL (0.0-6.0); LDL Cholesterol,Calculated 49.4 mg/dL (0.0-131.0); Lipase 32 U/L (14-63); Potassium 3.9 mmol/L (3.5-5.5); Sodium 142 mmol/L (135-145); Total Bilirubin <0.2 mg/dL (0.3-1.2); Total Protein 6.6 g/dL (6.2-8.2)
[2024-12-29 15:51] LABS: Erythrocyte Sedimentation Rate 6 mm/Hr (0-20)
[2024-12-29 16:25] LABS: HSV I IgG Interp Negative (Negative); HSV II IgG Interp Negative (Negative)
== END | disposition home or self-care (01) ==
LOC: LABWHC1 11:18
PROVIDERS: ATTEND Internal Medicine
DX: Z32.00 Encounter for pregnancy test, result unknown (principal); N89.8 Other specified noninflammatory disorders of vagina; R53.82 Chronic fatigue, unspecified; R19.7 Diarrhea, unspecified; R10.84 Generalized abdominal pain; R59.9 Enlarged lymph nodes, unspecified
CPT/HCPCS: 36415; 80053; 80061; 82150; 83690; 84443; 84702; 85025; 85652; 86308; 86695; 86696

== ENCOUNTER → 2025-01-13 | Outpatient (CLI) | payer OTHER ==
--- NOTE | 2025-01-13 15:27 | US ---
EXAMINATION TYPE: US thyroid st tissue head/neck DATE OF EXAM: 01/13/2025 COMPARISON: NONE CLINICAL INDICATION: Female, 24 years old with history of R35.0 FREQUENCY, R39.11 HESITANCY,R51.9 ADAMS; TECHNIQUE: Grayscale and color Doppler imaging of the thyroid gland. FINDINGS: GLAND SIZE: Right Lobe: 5.1 x 1.2 x 1.6 cm Overall Parenchyma: homogeneous Left Lobe: 4.3 x 1.1 x 1.3 cm Overall Parenchyma: homogeneous Isthmus Thickness: 0.2 cm NODULES RIGHT: # of nodules measured on right: 0 LEFT: # of nodules measured on left: 0 ISTHMUS: # of nodules measured in the isthmus: 0 Bilateral neck scanned, no evidence of lymphadenopathy. Homogeneous normal-sized thyroid without suspicious nodules. IMPRESSION: As above. Highest TI-RADS level nodule reported: 2017 ACR TI-RADS LEVEL: TI-RADS 1 - BENIGN: No FNA TI-RADS assessment score and recommendation for follow-up based on appropriate scoring and treatment protocols. TR1 Benign No FNA TR2 Not suspicious No FNA TR3: If nodule size is ? 2.5 cm, FNA is recommended. If nodule size is ? 1.5 cm, follow-up imaging at 1, 3, and 5 years is recommended. TR4: If nodule size is ? 1.5 cm, FNA is recommended. If nodule size is ? 1.0 cm, follow-up imaging at 1, 2, 3, and 5 years is recommended. TR5: If nodule size is ? 1.0 cm, FNA is recommended. If nodule size is ? 0.5 cm, annual follow-up for up to 5 years is recommended. TR 1 thyroid nodules have a 0.3 % risk of malignancy. TR 2 thyroid nodules have a 1.5 % risk of malignancy. TR 3 thyroid nodules have a 4.8 % risk of malignancy. TR 4 thyroid nodules have a 9.1 % risk of malignancy. TR 5 thyroid nodules have a 35 % risk of malignancy. [email or web address] [facility], , 01/13/2025 3:24 PM
--- NOTE | 2025-01-13 15:28 | US ---
EXAMINATION TYPE: US kidneys/renal and bladder DATE OF EXAM: 01/13/2025 COMPARISON: CT May 28 2024 CLINICAL INDICATION: Female, 24 years old with history of R35.0 FREQUENCY, R39.11 HESITANCY,R51.9 ADAMS; TECHNIQUE: Grayscale imaging of the bilateral kidneys and urinary bladder: FINDINGS: EXAM MEASUREMENTS: Right Kidney: 10.2 x 5.0 x 5.5 cm Left Kidney: 10.7 x 5.3 x 5.0 cm Right Kidney: fullness of renal pelvis Left Kidney: fullness of renal pelvis Bladder: wnl Bilateral Jets seen: yes IMPRESSION: Mild to minimal symmetric appearing bilateral hydronephrosis is likely product of distend ed bladder. [facility], , 01/13/2025 3:26 PM
== END | disposition home or self-care (01) ==
LOC: RADUSWWP 14:41
PROVIDERS: ATTEND Internal Medicine
DX: R35.0 Frequency of micturition (principal); R59.9 Enlarged lymph nodes, unspecified; R39.11 Hesitancy of micturition; R51.9 Headache, unspecified
CPT/HCPCS: 76536; 76770

== ENCOUNTER 2025-03-13 18:41 | Emergency (ER) | payer OTHER ==
[2025-03-13 18:52] VITALS: BP 107/73; PULSE 76; RESP 16; TEMP 98.2
--- NOTE | 2025-03-13 19:10 | ED ---
Headache HPI - General Chief Complaint: Headache Stated Complaint: Headache Time Seen by Provider: 03/13/25 18:55 Source: patient, RN notes reviewed Mode of arrival: ambulatory Limitations: no limitations - History of Present Illness Initial Comments: 24-year-old female presents emergency department complaint of headache. Patient states that she has headache for the last few days. Patient has a history of migraine headaches. Patient is a typical headache for states that she has photophobia slight nausea no vomiting no fevers chills no trauma no falls no chest pain or shortness of breath. Patient states she has tried some at home medications without relief. - Related Data Home Medications Medication Instructions Recorded Confirmed Nystatin [Nystatin Oral Susp] 500,000 unit PO QID 05/28/24 06/10/24 Acetaminophen-Codeine 300-30mg 1 tab PO Q8H PRN 06/02/24 06/10/24 [Tylenol w/codeine #3] Famotidine [Pepcid] 40 mg PO BID 06/02/24 06/10/24 Ibuprofen [Motrin] 800 mg PO Q8H PRN 06/02/24 06/16/24 nadoloL 10 mg PO ONCE 06/16/24 06/16/24 Previous Rx's Medication Instructions Recorded oxyBUTYnin chloride [Ditropan] 5 mg PO TID PRN 7 Days #21 tab 05/31/24 Ciprofloxacin HCl [Cipro] 250 mg PO Q12HR #10 tablet 06/16/24 Ketorolac [Toradol] 10 mg PO Q6HR PRN #10 tab 06/16/24 Ketorolac [Toradol] 10 mg PO Q6HR PRN #10 tab 12/26/24 Allergies Allergy/AdvReac Type Severity Reaction Status Date / Time adhesive tape Allergy Rash/Hives Verified 12/26/24 19:50 amoxicillin Allergy Rash/Hives Verified 12/26/24 19:50 cephalexin [From Keflex] Allergy Rash/Hives Verified 12/26/24 19:50 Penicillins Allergy Rash/Hives Verified 12/26/24 19:50 Review of Systems ROS Statement: Those systems with pertinent positive or pertinent negative responses have been documented in the HPI. ROS Other: All systems not noted in ROS Statement are negative. Past Medical History Past Medical History: Asthma Additional Past Medical History / Comment(s): IBS, orthostatic hypertension, borderline diabetic, endometriosis, PATEL dx 06-11-2024 migraine History of Any Multi-Drug Resistant Organisms: None Reported Past Surgical History: Adenoidectomy, Tonsillectomy Additional Past Surgical History / Comment(s): Endometriosis laproscopic surgery on 09/19/21 Past Anesthesia/Blood Transfusion Reactions: No Reported Reaction Past Psychological History: Anxiety, Depression Smoking Status: Current every day smoker Past Alcohol Use History: None Reported Past Drug Use History: Marijuana General Exam Limitations: no limitations General appearance: alert, in no apparent distress Head exam: Present: atraumatic, normocephalic, normal inspection Eye exam: Present: normal appearance, PERRL, EOMI. Absent: scleral icterus, conjunctival injection, periorbital swelling ENT exam: Present: normal exam, normal oropharynx, mucous membranes moist, TM's normal bilaterally Neck exam: Present: normal inspection, full ROM. Absent: tenderness, meningis mus, lymphadenopathy Respiratory exam: Present: normal lung sounds bilaterally. Absent: respiratory distress, wheezes, rales, rhonchi, stridor Cardiovascular Exam: Present: regular rate, normal rhythm, normal heart sounds. Absent: systolic murmur, diastolic murmur, rubs, gallop, clicks GI/Abdominal exam: Present: soft, normal bowel sounds. Absent: distended, tenderness, guarding, rebound, rigid Neurological exam: Present: alert, oriented X3, CN II-XII intact, reflexes normal. Absent: motor sensory deficit Skin exam: Present: warm, dry, intact, normal color. Absent: rash Course Vital Signs 03/13/25 18:49 Temperature 98.2 F Pulse Rate 76 Respiratory 16 Rate Blood Pressure 107/73 O2 Sat by Pulse 99 Oximetry Medical Decision Making - Medical Decision Making Was pt. sent in by a medical professional or institution (, PA, CALENDER TENDER, urgent care, hospital, or alf...) When possible be specific @ -No Did you speak to anyone other than the patient for history (EMS, parent, family, police, friend...)? What history was obtained from this source @ -No Did you review nursing and triage notes (agree or disagree)? Why? @ -I reviewed and agree with nursing and triage notes Were old charts reviewed (outside hosp., previous admission, EMS record, old EKG, old radiological studies, urgent care reports/EKG's, alf records)? Report findings @ -No old charts were reviewed Differential Diagnosis (chest pain, altered mental status, abdominal pain women, abdominal pain men, vaginal bleeding, weakness, fever, dyspnea, syncope, headache, dizziness, GI bleed, back pain, seizure, CVA, palpatations, mental health, musculoskeletal)? @ -Differential Headache: Migraine, tension, cluster, carbon monoxide, central venous thrombosis, pension karma temporal arteritis, acute closure glaucoma, intercranial hemorrhage, mastoiditis, sinusitis, head injury, this is not meant to be an all-inclusive list. EKG interpreted by me (3pts min.). @ -None X-rays interpreted by me (1pt min.). @ -None done CT interpreted by me (1pt min.). @ -None done U/S interpreted by me (1pt. min.). @ -None done What testing was considered but not performed or refused? (CT, X-rays, U/S, labs)? Why? @ -None What meds were considered but not given or refused? Why? @ -None Did you discuss the management of the patient with other professionals (professionals i.e. , PA, CALENDER TENDER, lab, RT, psych nurse, child welfare social worker, university tutor, teacher, zoology technical officer, community case manager)? Give summary @ -No Was smoking cessation discussed for >3mins.? @ -No Was critical care preformed (if so, how long)? @ -No Were there social determinants of health that impacted care today? How? (Homelessness, low income, unemployed, alcoholism, drug addiction, transportation, low edu. Level, literacy, decrease access to med. care, penitentiary, rehab)? @ -No Was there de-escalation of care discussed even if they declined (Discuss DNR or withdrawal of care, Hospice)? DNR status @ -No What co-morbidities impacted this encounter? (DM, HTN, Smoking, COPD, CAD, Cancer, CVA, ARF, Chemo, Hep., AIDS, mental health diagnosis, sleep apnea, morbid obesity)? @ -None Was patient admitted / discharged? Hospital course, mention meds given and route, prescriptions, significant lab abnormalities, going to OR and other pertinent info. @ -Patient left AGAINST MEDICAL ADVICE Undiagnosed new problem with uncertain prognosis? @ -No Drug Therapy requiring intensive monitoring for toxicity (Heparin, Nitro, Insulin, Cardizem)? @ -No Were any procedures done? @ -No Diagnosis/symptom? @ -Headache Acute, or Chronic, or Acute on Chronic? @ -Acute Uncomplicated (without systemic symptoms) or Complicated (systemic symptoms)? @ -Uncomplicated Side effects of treatment? @ -No Exacerbation, Progression, or Severe Exacerbation? @ -No Poses a threat to life or bodily function? How? (Chest pain, [place], [place], pneumonia, PE, COPD, DKA, ARF, appy, cholecystitis, CVA, Diverticulitis, Homicidal, Suicidal, threat to staff... and all critical care pts) @ -No Disposition Clinical Impression: Migraine headache Disposition: LEFT AGAINST MEDICAL ADVICE Referrals: Home Perez DO [Primary Care Provider] - 1-2 days Time of Disposition: 20:19
[2025-03-13] MEDS: droPERidol 2.5 MG/ML VIAL IVP ONE (19:33)
[2025-03-13] MEDS: SODIUM CHLORIDE 0.9% 1,000 ML IV ONE (19:34)
[2025-03-13] MEDS: KETOROLAC 15 MG/ML 1 ML VIAL IVP STA (19:37)
== END 2025-03-13 20:29 | disposition left against medical advice (07) ==
LOC: EC 18:41
DX: G43.909 Migraine, unspecified, not intractable, without status migrainosus (principal); F17.200 Nicotine dependence, unspecified, uncomplicated; Z88.0 Allergy status to penicillin; Z88.1 Allergy status to other antibiotic agents; Z91.048 Other nonmedicinal substance allergy status; Z88.8 Allergy status to other drugs, medicaments and biological substances; Z53.29 Procedure and treatment not carried out because of patient's decision for other reasons
CPT/HCPCS: 99283; 96374; 96375; J1885; J1790

== ENCOUNTER 2025-03-22 10:16 | Emergency (ER) | payer OTHER ==
[2025-03-22 10:22] VITALS: RESP 20
--- NOTE | 2025-03-22 10:42 | ED ---
Abdominal Pain HPI - General Chief Complaint: Abdominal Pain Stated Complaint: R sided flank pain Time Seen by Provider: 03/22/25 10:28 Source: patient, RN notes reviewed Mode of arrival: ambulatory Limitations: no limitations - History of Present Illness Initial Comments: This is a 24-year-old female with history of IBS and kidney stones presenting for intermittent right flank pain (03/04) x 3 days. Patient states that she highly suspects having a kidney stone. Endorses associated dysuria, hematuria, cloudy urine with sweet odor and chills. Denies fever, chills, chest pain, dyspnea, diarrhea, constipation, hematemesis. MD Complaint: flank pain Onset/Timin -: days(s) Location: R flank Radiation: none Migration to: no migration Severity scale (1-10): 7 Quality: stabbing Consistency: intermittent Associated Symptoms: nausea, vomiting, chills, dysuria, hematuria - Related Data Home Medications Medication Instructions Recorded Confirmed Nystatin [Nystatin Oral Susp] 500,000 unit PO QID 05/28/24 06/10/24 Acetaminophen-Codeine 300-30mg 1 tab PO Q8H PRN 06/02/24 06/10/24 [Tylenol w/codeine #3] Famotidine [Pepcid] 40 mg PO BID 06/02/24 06/10/24 Ibuprofen [Motrin] 800 mg PO Q8H PRN 06/02/24 06/16/24 nadoloL 10 mg PO ONCE 06/16/24 06/16/24 Previous Rx's Medication Instructions Recorded oxyBUTYnin chloride [Ditropan] 5 mg PO TID PRN 7 Days #21 tab 05/31/24 Ciprofloxacin HCl [Cipro] 250 mg PO Q12HR #10 tablet 06/16/24 Ketorolac [Toradol] 10 mg PO Q6HR PRN #10 tab 06/16/24 Ketorolac [Toradol] 10 mg PO Q6HR PRN #10 tab 12/26/24 Ciprofloxacin HCl [Cipro] 500 mg PO Q12HR #20 tablet 03/22/25 Allergies Allergy/AdvReac Type Severity Reaction Status Date / Time adhesive tape Allergy Rash/Hives Verified 03/22/25 10:22 amoxicillin Allergy Rash/Hives Verified 03/22/25 10:22 cephalexin [From Keflex] Allergy Rash/Hives Verified 03/22/25 10:22 Penicillins Allergy Rash/Hives Verified 03/22/25 10:22 Review of Systems ROS Statement: Those systems with pertinent positive or pertinent negative responses have been documented in the HPI. ROS Other: All systems not noted in ROS Statement are negative. Past Medical History Past Medical History: Asthma Additional Past Medical History / Comment(s): IBS, orthostatic hypertension, borderline diabetic, endometriosis, PATEL dx 06-11-2024 migraine History of Any Multi-Drug Resistant Organisms: None Reported Past Surgical History: Adenoidectomy, Tonsillectomy Additional Past Surgical History / Comment(s): Endometriosis laproscopic surgery on 09/19/21 Past Anesthesia/Blood Transfusion Reactions: No Reported Reaction Past Psychological History: Anxiety, Depression Smoking Status: Current every day smoker Past Alcohol Use History: None Reported Past Drug Use History: Marijuana General Exam Limitations: no limitations General appearance: alert, in no apparent distress Head exam: Present: atraumatic, normocephalic, normal inspection Eye exam: Present: normal appearance, PERRL, EOMI. Absent: scleral icterus, conjunctival injection, periorbital swelling ENT exam: Present: normal exam, mucous membranes moist Neck exam: Present: normal inspection. Absent: tenderness, meningismus, lymphadenopathy Respiratory exam: Present: normal lung sounds bilaterally. Absent: respiratory distress, wheezes, rales, rhonchi, stridor Cardiovascular Exam: Present: regular rate, normal rhythm, normal heart sounds. Absent: systolic murmur, diastolic murmur, rubs, gallop, clicks GI/Abdominal exam: Present: soft, normal bowel sounds. Absent: distended, tenderness, guarding, rebound, rigid Extremities exam: Present: normal inspection, full ROM, normal capillary refill. Absent: tenderness, pedal edema, joint swelling, calf tenderness Back exam: Present: tenderness (Right flank tenderness), CVA tenderness (R). Absent: CVA tenderness (L) Neurological exam: Present: alert, oriented X3, CN II-XII intact Psychiatric exam: Present: normal affect, normal mood Skin exam: Present: warm, dry, intact, normal color. Absent: rash Course Vital Signs 03/22/25 10:19 Temperature 98.3 F Pulse Rate 64 Respiratory 20 Rate Blood Pressure 107/72 O2 Sat by Pulse 99 Oximetry Medical Decision Making - Medical Decision Making Was pt. sent in by a medical professional or institution (KYLE Oden, ROTARY DRIER FEEDER, urgent care, hospital, or alf...) When possible be specific @ -[No] Did you speak to anyone other than the patient for history (EMS, parent, family, police, friend...)? What history was obtained from this source @ -[No] Did you review nursing and triage notes (agree or disagree)? Why? @ -[I reviewed and agree with nursing and triage notes] Were old charts reviewed (outside hosp., previous admission, EMS record, old EKG, old radiological studies, urgent care reports/EKG's, alf records)? Report findings @ -[No old charts were reviewed] Differential Diagnosis (chest pain, altered mental status, abdominal pain women, abdominal pain men, vaginal bleeding, weakness, fever, dyspnea, syncope, headache, dizziness, GI bleed, back pain, seizure, CVA, palpatations, mental health, musculoskeletal)? @ -Differential Back Pain: Strain, zoster, cauda equina syndrome, epidural abscess, vertebral o steomyelitis, discitis, fracture, subluxation, disc herniation, DJD, spinal stenosis, dissection, AAA, pancreatitis, peptic ulcer disease, pyelonephritis, kidney stone, this is not meant to be an all-inclusive list. EKG interpreted by me (3pts min.). @ -Not done X-rays interpreted by me (1pt min.). @ -[None done] CT interpreted by me (1pt min.). @ -[None done] U/S interpreted by me (1pt. min.). @ -[None done] What testing was considered but not performed or refused? (CT, X-rays, U/S, labs)? Why? @ -[None] What meds were considered but not given or refused? Why? @ -[None] Did you discuss the management of the patient with other professionals (professionals i.e. KYLE Oden, ROTARY DRIER FEEDER, lab, RT, psych nurse, socially responsible investment adviser, line manager, teacher, chairman president and chief executive officer, bilingual patient support caseworker)? Give summary @ -[No] Was smoking cessation discussed for >3mins.? @ -[No] Was critical care preformed (if so, how long)? @ -[No] Were there social determinants of health that impacted care today? How? (Homelessness, low income, unemployed, alcoholism, drug addiction, transportation, low edu. Level, literacy, decrease access to med. care, [facility], rehab)? @ -[No] Was there de-escalation of care discussed even if they declined (Discuss DNR or withdrawal of care, Hospice)? DNR status @ -[No] What co-morbidities impacted this encounter? (DM, HTN, Smoking, COPD, CAD, Cancer, CVA, ARF, Chemo, Hep., AIDS, mental health diagnosis, sleep apnea, morbid obesity)? @ -[None] Was patient admitted / discharged? Hospital course, mention meds given and route, prescriptions, significant lab abnormalities, going to OR and other pertinent info. @ -[hospital course] Undiagnosed new problem with uncertain prognosis? @ -[No] Drug Therapy requiring intensive monitoring for toxicity (Heparin, Nitro, Insulin, Cardizem)? @ -[No] Were any procedures done? @ -[No] Diagnosis/symptom? @ -[default] Acute, or Chronic, or Acute on Chronic? @ -Acute Uncomplicated (without systemic symptoms) or Complicated (systemic symptoms)? @ -Complicated Side effects of treatment? @ -[No] Exacerbation, Progression, or Severe Exacerbation? @ -[No] Poses a threat to life or bodily function? How? (Chest pain, [place], [place], pneumonia, PE, COPD, DKA, ARF, appy, cholecystitis, CVA, Diverticulitis, Homicidal, Suicidal, threat to staff... and all critical care pts) @ -[No] - Lab Data Lab Results 03/22/25 03/22/25 Range/Units 10:31 10:31 Urine Color Colorless Urine Appearance Cloudy H (Clear) Urine pH 6.0 (5.0-8.0) Ur Specific [place] 1.010 (1.001-1.035) Urine Protein 1+ H (Negative) Urine Glucose (UA) Negative (Negative) Urine Ketones Negative (Negative) Urine Blood Moderate H (Negative) Urine Nitrite Positive H (Negative) Urine Bilirubin Negative (Negative) Urine Urobilinogen <2.0 (<2.0) mg/dL Ur Leukocyte Esterase Large H (Negative) Urine RBC 6 H (0-5) /hpf Urine WBC 116 H (0-5) /hpf Urine WBC Clumps Many H (None) /hpf Ur Squamous Epith Cells 8 H (0-4) /hpf Urine Bacteria Occasional H (None) /hpf Urine Mucus Few H (None) /hpf Urine HCG, Qual Not Detected (Not Detectd) Disposition Clinical Impression: Pyelonephritis, UTI (urinary tract infection) Disposition: HOME SELF-CARE Condition: Fair Instructions (If sedation given, give patient instructions): Urinary Tract Infection in Women (ED), Kidney Infection (ED) Additional Instructions: Increase water and cranberry juice intake. Tylenol every 4-6 hours as needed for pain. Return to ER if fever develops or pain continues to worsen despite antibiotic use. Prescriptions: Ciprofloxacin HCl [Cipro] 500 mg PO Q12HR #20 tablet Is patient prescribed a controlled substance at d/c from ED?: No Referrals: Home Perez DO [Primary Care Provider] - 1-2 days Time of Disposition: 13:19
[2025-03-22] MEDS: KETOROLAC 15 MG/ML 1 ML VIAL IM STA (10:45)
[2025-03-22] MEDS: ACETAMINOPHEN TAB 500 MG TAB PO STA (10:46)
[2025-03-22 10:52] LABS: Bacteria,Urine Occasional /hpf; Bilirubin,Urine Negative (Negative); Blood,Urine Moderate (Negative); Color,Urine Colorless; Glucose,Urine (UA) Negative (Negative); Ketones,Urine Negative (Negative); Leukocyte Esterase,Urine Large (Negative); Mucus,Urine Few /hpf; Nitrite,Urine Positive (Negative); PH, Urine 6.0 (5.0-8.0); Protein,Urine 1+ (Negative); RBC,Urine 6 /hpf (0-5); Specific Gravity,Urine 1.010 (1.001-1.035); Squamous Epithelial Cell,Urine 8 /hpf (0-4); Urobilinogen,Urine <2.0 mg/dL (<2.0); WBC,Urine 116 /hpf (0-5)
--- NOTE | 2025-03-22 12:20 | CT ---
EXAMINATION TYPE: CT abdomen pelvis wo con DATE OF EXAM: 03/22/2025 11:46 AM COMPARISON: None. CLINICAL INDICATION: Female, 24 years old with history of Right flank pain, hematuria, history of sto simeon, Right flank pain, hematuria, history of stones TECHNIQUE: Axial images with sagittal coronal reformats. Examination of the solid and hollow viscera is limited given the lack of contrast. CT DLP: 613.2 mGycm, Automated exposure control for dose reduction was used. FINDINGS: LUNG BASES: No evidence for nodule. No evidence for infiltrate. LIVER/GB: The gallbladder is unremarkable. No space-occupying hepatic lesion. PANCREAS: No pancreatic mass identified. No inflammatory process seen. SPLEEN: No evidence for splenomegaly. No intrasplenic lesions seen. ADRENALS: No adrenal nodules identified. No evidence for thickening. KIDNEYS: No evidence for renal mass. Nonobstructing renal calculus midpole left kidney measuring 2 mm as well as an additional 3 mm lower pole calculus. No hydronephrosis. BOWEL: Appendix has a normal appearance. No evidence of bowel obstruction. No inflammatory process. Lymph nodes: No evidence for adenopathy greater than 1 cm. Abdominal aorta: Atheromatous changes seen. No evidence for aneurysm. Genital organs: No significant abnormality. Other: No significant abnormality. IMPRESSION: NONOBSTRUCTING NEPHROLITHIASIS NOTED. [facility], , 03/22/2025 12:18 PM
[2025-03-22] MEDS: cefTRIAXone 1,000 MG VIAL (IM USE) IM STA ×2 (12:24→12:25)
[2025-03-22] MEDS: CIPROFLOXACIN HCL 500 MG TAB PO STA (13:19)
[2025-03-22 13:30] VITALS: BP 106/69; PULSE 51; TEMP 98
== END 2025-03-22 13:30 | disposition home or self-care (01) ==
LOC: EC 10:16
DX: N12 Tubulo-interstitial nephritis, not specified as acute or chronic (principal); N39.0 Urinary tract infection, site not specified; N20.0 Calculus of kidney; F17.200 Nicotine dependence, unspecified, uncomplicated; Z88.0 Allergy status to penicillin; Z88.1 Allergy status to other antibiotic agents; Z88.8 Allergy status to other drugs, medicaments and biological substances; Z91.048 Other nonmedicinal substance allergy status
CPT/HCPCS: 81001; 81025; 87086; 74176; 99284; 96372; J0696; J1885